=== PATIENT | male | born 1945 | race Caucasian/White ===

== ENCOUNTER 2018-03-07 20:24 | Inpatient (IN) ==
[2018-03-07] MEDS ORDERED: Potassium Chloride Elixir 20 MEQ/15 ML UDC PO ONE (23:26)
[2018-03-07] MEDS ORDERED: GI Cocktail 40 ML EACH PO ONE (23:26)
[2018-03-07] MEDS ORDERED: Ringers Solution, Lactated 1,000 ML IVC SCH (23:30)
--- NOTE | 2018-03-07 23:49 | Internal Med History&Physical ---
Date of Encounter: 03/07/18 Time of Encounter: 23:38 Internal Medicine - H&P: HPI Chief complaint: Fatigue Admitted From: Hospital to Hospital Transfer Plans for Post Hospital Care: Home History of present illness: Mr. 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 He completed a cycle 1 week ago at which time he was seen in clinic by Dr Isamar Wick. He presents now on transfer from [facility] where he reported complaints of generalized malaise, debilitating fatigue and difficulty swallowing after receiving radiation and chemotherapy. He has also been feeling nauseated but does not vomit. He denies having diarrhea at tis time stating that it last occurred "half a month ago". He denies having fever or chills. He denies chest pain, diaphoresis, abdominal pain. He has had poor oral intake due to difficulty swallowing with notable discomfort in his chest and feeling of "burning". Says due to his weakness he has been unable to ambulate adequately and nearly falls when feeling lightheaded. He denies headaches, numbness or focal weaknesses. There has been no loss of bowel or bladder continence. He denies being in pain at this time. He denies cough and expectoration. On my assessment here he is notably fatigued but not in acute distress. He was in a notably dehydrated state on clinical presentation with outside labs remarkable for K 3.1, Hgb 10.2, Cr 1.15, lactic acid 2.8, Cl 89 and ANC 0.6. His temperature upon arrival to the ER was 96.0-98.8 Fahrenheit, heart rate of 72-101, BP of 130/72 and oxygen saturation of 96% on room air. Of note, the patient expressed his wish to not have CPR done if his heart were to stop and undergo mechanical ventilation for respiratory needs, expressing his preference to have comfort care alone if it got to that stage. Past Med Surg Social Fam HX - Past Medical History Medical history: cancer, COPD Additional medical history: htn. copd. lung nodule Psychiatric history: anxiety, depression, PTSD - Past Surgical History Surgical History: other Additional surgical history: right CTR. left arm ORIF - Social History Smoking Status: Former smoker Packs per day: 2 Smokeless Tobacco Status: Yes ([place] snuff) Alcohol use: none Drug use: none Internal Medicine - H&P: Meds Albuterol Sulfate [Proventil Hfa] 2 puff IH Q6H PRN 12/01/17 [History] Atorvastatin [Lipitor] 40 mg PO HS 12/01/17 [History] Budesonide/Formoterol 160/4.5 [Symbicort 160/4.5] 2 puff IH BIDR 12/01/17 [ History] Sertraline [Zoloft] 100 mg PO DAILY 12/01/17 [History] Tiotropium [Spiriva] 2 puff IH 0700 12/01/17 [History] Folic Acid 1 mg PO DAILY #30 tablet 12/24/17 [Rx] Omeprazole [PriLOSEC] 20 mg PO DAILY #30 cap 01/14/18 [Rx] Dronabinol [Marinol] 5 mg PO BID 30 Days #60 capsule 01/18/18 [Rx] Mirtazapine [Remeron] 30 mg PO DAILY #30 tablet 01/25/18 [Rx] Sucralfate [Carafate] 1 gm PO QIDAC #1 bottle 02/09/18 [Rx] Metoclopramide [Reglan] 10 mg PO QIDAC #240 mls 02/17/18 [Rx] Ondansetron [Zofran ODT] 8 mg SL Q8H PRN #30 tab 02/17/18 [Rx] Magic Mouthwash [Magic Mouthwash BLM] 10 ml PO QID PRN #240 ml 02/24/18 [Rx] MORPHINE SUL Oral CONC [Roxanol Oral Conc] 10 mg PO Q3H PRN 7 Days #30 ml [Rx] 3 Allergy/AdvReac Type Severity Reaction Status Date / Time aspirin [ASA] Allergy Swelling Verified 02/24/18 15:13 of Lip/Tongue/Throat codeine Allergy Swelling Verified 02/24/18 15:13 of Lip/Tongue/Throat Penicillins [PCN] Allergy Hives Verified 02/24/18 15:13 All Systems PM: A 10-system review of systems was performed and is negative for pertinent findings except as documented above in the HPI. - Constitutional Vitals: Temp Pulse Resp BP Pulse Ox 97.6 F 109 16 106/64 97 03/07/18 23:07 03/07/18 23:07 03/07/18 23:07 03/07/18 23:07 03/07/18 23:07 Exam: Vitals: Reviewed and seen to be within normal limits General: Emaciated-appearing elderly male lying in bed in no acute distress speaking in full sentences. Skin: Decreased skin turgor with some ecchymotic lesions on forearms. Desquamated skin with scaling and erythema on the mid back region. HEENT: Dry mucous membranes. Mild conjunctivae pallor. No oral stomatitis or mucositis. Neck: Supple with full range of motion. Chest: Diminished thoracic expansion with decreased breath sounds in both lung garcia but no wheezes, rales or rhonchi.. Heart: Normal S1 & S2; rhythmic. No rubs or murmurs. Abdomen: Non-distended, soft and non-tender to palpation. Extremities: Positive clubbing, no cyanosis or edema. No calf tenderness. Normal distal pulses. Neurological: Awake, alert and oriented to person, place and time. No focal deficits. Psych: Appropriate affect - Assessment and plan (1) Dehydration due to radiation Current Visit: Yes Status: Acute Assessment and plan: The patient appears clinically dry after undergoing multiple radiation sessions as well as chemotherapy with very poor oral intake. -Will resuscitate with 2L of LR at 125ml/hr after which the rate can be decreased or he can be maintained on oral intake alone. (2) Nausea Current Visit: Yes Status: Acute Assessment and plan: Likely chemotherapy associated. -Will place on ondansetron 8mg prn. (3) Radiation-induced dermatitis Current Visit: Yes Status: Acute Assessment and plan: Grade 1. -Topical ammonium lactate moisturizer ordered BID. (4) Neutropenia Current Visit: Yes Status: Acute Assessment and plan: The patient is afebrile and without clinical signs of infection. -Will place on neutropenic precautions. -Heme/Onc consult placed to advise on if there is a need for G-CSF. -Follow up repeat CBC. -Monitor for fever and developing signs of infection. Qualifiers: Neutropenia type: secondary to cancer chemotherapy Qualified Code(s): D70.1 - Agranulocytosis secondary to cancer chemotherapy; T45.1X5A - Adverse effect of antineoplastic and immunosuppressive drugs, initial encounter (5) COPD (chronic obstructive pulmonary disease) Current Visit: Yes Status: Chronic Assessment and plan: No signs of acute exacerbation at this time. -Continue LABA/ICS BID and BETINA prn. -Supplemental oxygen as needed. Qualifiers: COPD type: emphysema Emphysema type: panlobular Qualified Code(s): J43.1 - Panlobular emphysema (6) Hypokalemia Current Visit: Yes Status: Acute Assessment and plan: Related to poor oral intake and dehydration. -KCL supplementation ordered and will re-check BMP. (7) Frailty Current Visit: Yes Status: Chronic Assessment and plan: Related to severe copd and malignancy undergoing aggressive therapy. -Continue dronabinol for appetite stimulation. -Palliative care consult request to assist with comfort and goals. -Morphine prn for pain. (8) Lung cancer Current Visit: Yes Status: Chronic Assessment and plan: Undergoing chemo and radiation therapy. -Care per oncology. Qualifiers: Laterality: left Lung location: upper lobe of lung Qualified Code(s): C34.12 - Malignant neoplasm of upper lobe, left bronchus or lung (9) DVT prophylaxis Current Visit: Yes Status: Acute Assessment and plan: high risk given malignancy. -SubQ heparin ordered. - Time Spent With Patient Total time spent is greater than 50% in coordination of care (as documented) at patient's floor/unit and/or counseling patient: Greater than 35 minutes
[2018-03-08] MEDS: Ringers Solution, Lactated 1,000 ML IVC SCH ×2 (01:01→11:05)
[2018-03-08] MEDS: Ammonium Lactate 30 APPL/225 GM BOTTLE TP SCH ×2 (02:20→09:33)
[2018-03-08] MEDS: *HR* Heparin 5,000 UNIT/ML VIAL SQ SCH ×3 (06:18→21:07)
[2018-03-08 06:48] LABS: Eosinophils % 3.8 %; Hematocrit 22.8 % (37.5-50.1); Hemoglobin 7.9 g/dL (12.9-16.9); Immature Granulocytes % 9.4 % (0-4); Lymphocytes # 0.1 K/mcL (0.6-4.6); Lymphocytes % 15.1 %; Mean Corpuscular HGB Conc 34.6 g/dL (31.6-35.5); Mean Corpuscular Hemoglobin 29.3 pg (28.0-33.3); Mean Corpuscular Volume 84.4 fL (83.0-100.0); Mean Platelet Volume 8.7 fL (9.4-12.4); Monocytes # 0.1 K/mcL (0.0-1.3); Monocytes % 15.1 %; Neutrophils # 0.3 K/mcL (1.6-8.9); Platelet Count 228 K/mcL (140-400); Red Cell Distribution Width 15.5 % (11.5-14.5); Segmented Neutrophils % 56.6 %
[2018-03-08 07:03] LABS: Alanine Aminotransferase 16 Units/L (7-52); Albumin/Globulin Ratio 1.1 (1.1-2.2); Alkaline Phosphatase 58 Units/L (34-104); Aspartate Amino Transferase 31 Units/L (13-39); BUN/Creatinine Ratio 26 (6-26); Bilirubin,Direct 0.2 mg/dL (0.0-0.2); Bilirubin,Indirect 0.4 mg/dL (0.0-1.2); Bilirubin,Total 0.6 mg/dL (0.3-1.0); Blood Urea Nitrogen 18 mg/dL (8-23); Calcium 8.1 mg/dL (8.6-10.3); Carbon Dioxide 29 mEq/L (23-29); Chloride 93 mEq/L (98-107); Globulin 2.8 g/dL (2.4-3.5); Glucose 98 mg/dL (70-105); Osmolality,Calculated 274 (280-300); Phosphorous 2.1 mg/dL (2.7-4.5); Potassium 3.3 mEq/L (3.5-5.1); Sodium 131 mEq/L (136-145); Total Protein 5.8 g/dL (6.4-8.9); eGFR For Non-African Americans > 60 (> 60)
[2018-03-08 07:59] LABS: Anisocytosis 1+ (Not Present); Macrocytosis Present (Not Present); Microcytosis Present (Not Present); Platelet Estimate Normal (Normal)
[2018-03-08 08:00] LABS: Spherocytes 1+ (Not Present)
--- NOTE | 2018-03-08 08:07 | Internal Med Progress Note ---
Hospitalist Progress Note - Encounter Date of Encounter: 03/08/18 Time of Encounter: 08:00 - Subjective Interval History: Mr. 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 He completed a cycle 1 week ago at which time he was seen in clinic by Dr Isamar Wick. He presents now on transfer from [facility] where he reported complaints of generalized malaise, debilitating fatigue and difficulty swallowing after receiving radiation and chemotherapy. Patient was admitted for dehydration, dysphagia unable to swallow, significant weight loss, failure to thriv. on 03/07. He c/o burning epigastric pain, unalbe to swallow food, nausea for 2 months, lost 30 Lbs Today's lab showed leukopenia WBC 0.5 from chemo 1. stage 3 lung cancer, ongoing chemo and radiation 2.chemo-induced leukopenia 3. dysphasia, on liquids 4. dehydration 5. goal of care - Exam Vitals: Temp Pulse Resp BP Pulse Ox 98.5 F 102 16 101/60 98 03/08/18 04:17 03/08/18 04:17 03/08/18 04:17 03/08/18 04:17 03/08/18 04:17 Exam: CONSTITUTIONAL: patient appears as an age appropriate male in no acute distress. EYES Clear sclerae, bilateral pupils are equal, reactive to light. EMOI. RESPIRATORY: No accessory muscle use, bilateral clear to auscultation, no wheezing, no crackles/rales. CARDIOVASCULAR: Regular heart rate, normal S1 and S2, no murmurs GASTROINTESTINAL: bowel sounds present, soft, no tenderness. MUSCULOSKELETAL: Joints in normal range of motion, no clubbing, no edema, no cyanosis. Bilateral peripheral pulses 2+. NEUROLOGIC: CN II to XII are grossly intact, no focal neurological deficit. - Assessment and Plan (1) Dehydration due to radiation Current Visit: Yes Status: Acute Assessment and Plan: HYponatremia, due to nausea and dysphasia, continue IVF (2) Nausea Current Visit: Yes Status: Acute Assessment and Plan: and dysphasia, is likley related to radiation, will consult oncology if patient need PEG, continue liquids diet (3) Frailty Current Visit: Yes Status: Chronic Assessment and Plan: due to chemo and radiation, consult PT AND OT (4) Hypokalemia Current Visit: Yes Status: Acute Assessment and Plan: will repalce with IV (5) COPD (chronic obstructive pulmonary disease) Current Visit: Yes Status: Chronic Assessment and Plan: on 2 L NC at home, stable no signs for exacerbation (6) DVT prophylaxis Current Visit: Yes Status: Acute Assessment and Plan: heparin SC (7) Neutropenia Current Visit: Yes Status: Acute Assessment and Plan: from chemo and radiation, reverse isolation. The patient is afebrile and without clinical signs of infection. - on neutropenic precautions. -Heme/Onc consult placed to advise on if there is a need for G-CSF. -Follow up repeat CBC. -Monitor for fever and developing signs of infection. (8) Lung cancer Current Visit: Yes Status: Chronic Assessment and Plan: Undergoing chemo and radiation therapy. -consult oncology - Time Spent with Patient Total time spent is greater than 50% in coordination of care (as documented) at patient's floor/unit and/or counseling patient: Greater than 35 minutes Plan of Care Discussed with: patient Internal Medicine: Result - Labs CBC & Chem 7: 03/08/18 05:47 03/08/18 05:47 Labs: Short CBC 03/08/18 Range/Units 05:47 WBC 0.5 L* D (4.3-11.1) K/mcL Hgb 7.9 L D (12.9-16.9) g/dL Hct 22.8 L (37.5-50.1) % Plt Count 228 (140-400) K/mcL Neutrophils # 0.3 L (1.6-8.9) K/mcL BMP 03/08/18 05:47 Sodium 131 L Potassium 3.3 L Chloride 93 L Carbon Dioxide 29 BUN 18 Creatinine 0.69 L Glucose 98 Calcium 8.1 L Liver Function 03/08/18 Range/Units 05:47 Total Bilirubin 0.6 (0.3-1.0) mg/dL Direct Bilirubin 0.2 (0.0-0.2) mg/dL AST 31 (13-39) Units/L ALT 16 (7-52) Units/L Alkaline Phosphatase 58 (34-104) Units/L Albumin 3.0 L (3.5-5.7) g/dL Consult Discharge Plan - Plan [facility]errals: [facility] [Primary Care Provider] - (5) COPD (chronic obstructive pulmonary disease) Qualifiers: COPD type: emphysema Emphysema type: panlobular Qualified Code(s): J43.1 - Panlobular emphysema (7) Neutropenia Qualifiers: Neutropenia type: secondary to cancer chemotherapy Qualified Code(s): D70.1 - Agranulocytosis secondary to cancer chemotherapy; T45.1X5A - Adverse effect of antineoplastic and immunosuppressive drugs, initial encounter (8) Lung cancer Qualifiers: Laterality: left Lung location: upper lobe of lung Qualified Code(s): C34.12 - Malignant neoplasm of upper lobe, left bronchus or lung
[2018-03-08] MEDS ORDERED: Potassium Chloride 40 MEQ, Lidocaine 1% 2 ML in D5% in Water 500 ML IVPB ONE (08:17)
[2018-03-08] MEDS: Metoclopramide 10 MG/10 ML UD.LIQ PO SCH ×4 (08:24→21:07)
[2018-03-08] MEDS: Mirtazapine 15 MG TABLET PO SCH (08:24)
[2018-03-08] MEDS: Folic Acid 1 MG TABLET PO SCH (08:24)
--- NOTE | 2018-03-08 10:51 | Oncology Inp Consult Note ---
<James Schwartz - Last Filed: 03/08/18 17:08> Date of Encounter: 03/08/18 Time of Encounter: 10:49 Assessment and Plan (1) Dysphagia Status: Acute Assessment and plan: patient has had dysphagia since his radiation treatment for lung cancer during his last visit with Dr. Wick his symptoms were well controlled and he was able to have a proper diet/nutrition however this has deteriorated in the last week likley esophagitis/mucositis will give viscous lidocaine, carafate and magic mouthwash. advance diet as tolerated. Qualifiers: Dysphagia type: unspecified Qualified Code(s): R13.10 - Dysphagia, unspecified (2) Neutropenia Status: Acute Assessment and plan: Patient has Stage IIIa adenocarcinoma of the lingula he is on carboplatin with susan with last treatment on 03/02/18 since then he reports worsening dysphagia, weakness, fatigue, poor oral intake he presents with neutropenia with ANC of 300. Patient does not have fever. Denies cough, sputum production, diarrhea. this is the lowest ANC patient has had. no signs of thrush. Qualifiers: Neutropenia type: secondary to cancer chemotherapy Qualified Code(s): D70.1 - Agranulocytosis secondary to cancer chemotherapy; T45.1X5A - Adverse effect of antineoplastic and immunosuppressive drugs, initial encounter (3) Adenocarcinoma of left lung, stage 3 Status: Chronic - Data of Consult Patient: known to practice within the last 3 years Consult date: 03/08/18 Requesting Physician: Radha Santillan MD Primary Care Provider[facility] - Consult Narrative Reason for consult: neutropenia, dysphagia History of present illness: Mr. Dumont is a 72 year old male with history of stage III adenocarcinoma the lingula currently on chemotherapy presented with chief complaint of difficulty swallowing, painful swallowing and poor diet. Patient's reports that his last chemotherapy was 03/02/18 and since then he has had severe chest pain with oral intake including solid and liquid foods. Because of this he has undergone been unable to eat. He reports he has undergone radiation and since then has developed his dysphasia. He also reports having nausea, but does not vomit. In the emergency room he was found to have a ANC of 300. He denies fevers, chills, rash, cough, sputum production, diarrhea, abdominal pain, open wounds. He has felt very weak due to poor diet and fluid intake. Past Med Surg Social Fam HX - Past Medical History Medical history: cancer, COPD Additional medical history: htn. copd. lung nodule Psychiatric history: anxiety, depression, PTSD - Past Surgical History Surgical History: other Additional surgical history: right CTR. left arm ORIF - Social History Smoking Status: Former smoker Packs per day: 2 Smokeless Tobacco Status: Yes ([facility]uff) Alcohol use: none Drug use: none Medications and Allergies Albuterol Sulfate [Proventil Hfa] 2 puff IH Q6H PRN 12/01/17 [History] Atorvastatin [Lipitor] 20 mg PO HS 12/01/17 [History] Budesonide/Formoterol 160/4.5 [Symbicort 160/4.5] 2 puff IH BIDR 12/01/17 [ History] Sertraline [Zoloft] 100 mg PO DAILY 12/01/17 [History] Tiotropium [Spiriva] 2 puff IH 0700 12/01/17 [History] Omeprazole [PriLOSEC] 20 mg PO DAILY #30 cap 01/14/18 [Rx] Dronabinol [Marinol] 5 mg PO BID 30 Days #60 capsule 01/18/18 [Rx] Mirtazapine [Remeron] 30 mg PO DAILY #30 tablet 01/25/18 [Rx] Sucralfate [Carafate] 1 gm PO QIDAC #1 bottle 02/09/18 [Rx] Ondansetron [Zofran ODT] 8 mg SL Q8H PRN #30 tab 02/17/18 [Rx] MORPHINE SUL Oral CONC [Roxanol Oral Conc] 10 mg PO Q3H PRN 7 Days #30 ml [Rx] Albuterol Neb [Proventil Neb] 2.5 mg IH BID PRN 03/08/18 [History] Benzonatate [Tessalon] 100 mg PO TID 03/08/18 [History] Calcium Carbonate 650 mg PO DAILY 03/08/18 [History] Cholecalciferol (D-3) [Vitamin D] 1,000 unit PO DAILY 03/08/18 [History] Clopidogrel [Plavix] 75 mg PO DAILY 03/08/18 [History] LevETIRAcetam [Roweepra] 500 mg PO BID 03/08/18 [History] Lisinopril [Zestril] 20 mg PO DAILY 03/08/18 [History] Loratadine [Allergy Relief] 10 mg PO DAILY 03/08/18 [History] Metoclopramide [Reglan] 10 mg PO Q6HR 03/08/18 [History] Prazosin HCl [Minipress] 5 mg PO HS 03/08/18 [History] Promethazine [Phenergan] 25 mg PO Q6HR PRN 03/08/18 [History] Sertraline [Zoloft] 100 mg PO DAILY 03/08/18 [History] hydroCHLOROthiazide [Hydrochlorothiazide] 25 mg PO DAILY 03/08/18 [History] 3 Allergy/AdvReac Type Severity Reaction Status Date / Time aspirin [ASA] Allergy Swelling Verified 02/24/18 15:13 of Lip/Tongue/Throat codeine Allergy Swelling Verified 02/24/18 15:13 of Lip/Tongue/Throat Penicillins [PCN] Allergy Hives Verified 02/24/18 15:13 Review of systems: Constitutional: Denies fever, chills. Reports generalized weakness, fatigue HEENT: Denies headache, vision changes, neck pain, sore throat, rhinorrhea Heart: Denies chest pain palpitations Lungs: Denies shortness of breath cough Abdomen: Denies abdominal pain and diarrhea. reports nausea, loose stools. Reports dysphasia Back: Denies back pain Kidney: Denies dysuria, hematuria Skin: Denies rash, lesions Extremities: Denies swelling, pain Neuro: Denies numbness and tingling Oncology - Exam - Constitutional Vitals: Temp Pulse Resp BP Pulse Ox 98.3 F 105 14 113/67 96 03/08/18 10:16 03/08/18 10:16 03/08/18 10:16 03/08/18 10:16 03/08/18 10:16 - Additional findings Additional findings: General: Pleasant male, cachectic, weak HEENT: Head atraumatic, normocephalic, EOMI, PERRL, neck nontender to palpation , absent lymphadenopathy, Moist Mucous Membranes, Heart: Regular rate and rhythm with no murmur Lungs: Clear to auscultation bilaterally Abdomen: Soft nontender, nondistended positive bowel sounds Skin: warm and dry, absent rash Extremities: Absent pedal edema, Neuro: Alert oriented 3 Vascular: Pedal and radial pulses 2 out of 4 Oncology - Results Labs: 3 03/08/18 03/08/18 05:47 05:47 WBC 0.5 L* D RBC 2.70 L Hgb 7.9 L D Hct 22.8 L MCV 84.4 MCH 29.3 MCHC 34.6 RDW 15.5 H Plt Count 228 MPV 8.7 L Immature Gran % 9.4 H Seg Neutrophils % 56.6 Lymphocytes % 15.1 Monocytes % 15.1 Eosinophils % 3.8 Basophils % 0.0 Neutrophils # 0.3 L Lymphocytes # 0.1 L Monocytes # 0.1 Eosinophils # 0.0 Basophils # 0.0 Platelet Estimate Normal Anisocytosis 1+ A Microcytosis Present A Macrocytosis Present A Spherocytes 1+ A Sodium 131 L Potassium 3.3 L Chloride 93 L Carbon Dioxide 29 BUN 18 Creatinine 0.69 L Est GFR ( Amer) > 60 Est GFR (Non-Af Amer) > 60 BUN/Creatinine Ratio 26 Glucose 98 Calculated Osmolality 274 L Calcium 8.1 L Phosphorus 2.1 L Magnesium 2.0 Total Bilirubin 0.6 Direct Bilirubin 0.2 Indirect Bilirubin 0.4 AST 31 ALT 16 Alkaline Phosphatase 58 Serum Total Protein 5.8 L Albumin 3.0 L Globulin 2.8 Albumin/Globulin Ratio 1.1 Consult Discharge Plan - Plan [facility]errals: [facility] [Primary Care Provider] - <Damien Wick S - Last Filed: 03/08/18 21:36> Date of Encounter: 03/08/18 - Data of Consult Requesting Physician: Radha Santillan MD Primary Care Provider: PCP [facility] - Consult Narrative History of present illness: Mr. Dumont is a 72 year old male Oncology - Exam - Constitutional Vitals: Temp Pulse Resp BP Pulse Ox 99.6 F 104 14 147/72 96 03/08/18 19:04 03/08/18 19:04 03/08/18 20:06 03/08/18 19:04 03/08/18 20:06 Oncology - Results Labs: 3 03/08/18 03/08/18 05:47 05:47 WBC 0.5 L* D RBC 2.70 L Hgb 7.9 L D Hct 22.8 L MCV 84.4 MCH 29.3 MCHC 34.6 RDW 15.5 H Plt Count 228 MPV 8.7 L Immature Gran % 9.4 H Seg Neutrophils % 56.6 Lymphocytes % 15.1 Monocytes % 15.1 Eosinophils % 3.8 Basophils % 0.0 Neutrophils # 0.3 L Lymphocytes # 0.1 L Monocytes # 0.1 Eosinophils # 0.0 Basophils # 0.0 Platelet Estimate Normal Anisocytosis 1+ A Microcytosis Present A Macrocytosis Present A Spherocytes 1+ A Sodium 131 L Potassium 3.3 L Chloride 93 L Carbon Dioxide 29 BUN 18 Creatinine 0.69 L Est GFR ( Amer) > 60 Est GFR (Non-Af Amer) > 60 BUN/Creatinine Ratio 26 Glucose 98 Calculated Osmolality 274 L Calcium 8.1 L Phosphorus 2.1 L Magnesium 2.0 Total Bilirubin 0.6 Direct Bilirubin 0.2 Indirect Bilirubin 0.4 AST 31 ALT 16 Alkaline Phosphatase 58 Serum Total Protein 5.8 L Albumin 3.0 L Globulin 2.8 Albumin/Globulin Ratio 1.1 - Attending Attestation I have seen and examined Mr. Dumont and agree with the resident's assessment and plan. Mr. Dumont is a 72-year-old gentleman who is under my care for stage IIIa poorly differentiated adenocarcinoma of the lingula. He recently completed radiation therapy this past Thursday. He received his last dose of chemotherapy just this past week. He is been admitted with esophagitis. This patient should be managed with supportive measures including IV fluids, Carafate suspension before meals and at bedtime as well as Magic mouthwash before meals and bedtime. This will resolve with time. I would also recommend nutrition consultation. There is no need for PEG tube placement as this will be short-lived. We will continue to follow.
[2018-03-08] MEDS: Tiotropium 18 MCG inhalation IH SCH ×2 (10:55→11:00)
[2018-03-08] MEDS: Budesonide/Formoterol 160/4.5 MDI IH SCH ×2 (11:00→20:05)
[2018-03-08] MEDS: Magic Mouthwash 10 ML UD Cup PO PRN ×2 (11:35→16:07)
[2018-03-08] MEDS: MORPHINE SUL Oral CONC 10 MG/0.5 ML ORAL.SYG PO PRN (13:56)
--- NOTE | 2018-03-08 15:27 | Palliative - Consult Note ---
Date of Encounter: 03/08/18 Time of Encounter: 16:15 - Assessment and Plan (1) Dehydration due to radiation Current Visit: Yes Status: Acute Assessment and plan: Continues with Iv fluids per hospitalists order. (2) Dysphagia Current Visit: Yes Status: Acute Assessment and plan: Remains on full liquid diet with ensure. He is still struggling somewhat with this. Continue Magic Mouthwash and Carafate as well. Qualifiers: Dysphagia type: unspecified Qualified Code(s): R13.10 - Dysphagia, unspecified (3) Nausea Current Visit: Yes Status: Acute Assessment and plan: Continue Ondansetron PRN. Remains on Reglan/Marinol as well. Has not required Ondansetron since admission. Monitor (4) Adenocarcinoma of left lung, stage 3 Current Visit: Yes Status: Chronic Assessment and plan: Reviewed previous oncology notes - treatment intent is curative for this patient. Oncology has been consulted this admission. Will review any recommendations. (5) COPD (chronic obstructive pulmonary disease) Current Visit: Yes Status: Chronic Qualifiers: COPD type: emphysema Emphysema type: panlobular Qualified Code(s): J43.1 - Panlobular emphysema (6) Advance care planning Current Visit: Yes Status: Acute Assessment and plan: Went to meet with pt in afternoon to complete advanced directives and discuss state DNR form, however, pt was vomiting. Nurse has been notified to give medication. Will meet again in am. Palliative-CN HPI - Data of Consult Consult date: 03/08/18 Requesting Physician: Radha Santillan MD [facility] - Consult Narrative Palliative Care/Comfort Measures: Hospice care History of present illness: Mr. Dumont is a 72 year old male with a history of stage IIIa adenocarcinoma of the lung, who presented with increasing fatigue, weakness, and poor appetite. Neutropenic with WBC 0.5. Hgb 7.9. 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 He is patient of Dr. Wick/Dr. Cabral and has been receiving chemo/radiation. Has struggled maintaining oral intake with his dysphagia. Appears oncology has been working with him on this symptom, and had mentioned he may need PEG tube for nutrition. He has 5 children, and lives with son Anson. No advance directives are in place. He wears oxygen at home. Upon my visit, he is resting comfortably in the bed, and no visitors are present. He still does complain of some midsternal chest discomfort, and states swallowing still difficult for him. Doesn't like to take pain medications and states "don't want to feel doped up'. Weakness has improved some with fluids, and he states he is up and around room. CC: Radha Santillan MD Past Med Surg Social Fam HX - Past Medical History Medical history: cancer, COPD Additional medical history: htn. copd. lung nodule Psychiatric history: anxiety, depression, PTSD - Past Surgical History Surgical History: other Additional surgical history: right CTR. left arm ORIF - Social History Smoking Status: Former smoker Packs per day: 2 Smokeless Tobacco Status: Yes (CollabRx snuff) Alcohol use: none Drug use: none Medications and Allergies Albuterol Sulfate [Proventil Hfa] 2 puff IH Q6H PRN 12/01/17 [History] Atorvastatin [Lipitor] 20 mg PO HS 12/01/17 [History] Budesonide/Formoterol 160/4.5 [Symbicort 160/4.5] 2 puff IH BIDR 12/01/17 [ History] Sertraline [Zoloft] 100 mg PO DAILY 12/01/17 [History] Tiotropium [Spiriva] 2 puff IH 0700 12/01/17 [History] Omeprazole [PriLOSEC] 20 mg PO DAILY #30 cap 01/14/18 [Rx] Dronabinol [Marinol] 5 mg PO BID 30 Days #60 capsule 01/18/18 [Rx] Mirtazapine [Remeron] 30 mg PO DAILY #30 tablet 01/25/18 [Rx] Sucralfate [Carafate] 1 gm PO QIDAC #1 bottle 02/09/18 [Rx] Ondansetron [Zofran ODT] 8 mg SL Q8H PRN #30 tab 02/17/18 [Rx] MORPHINE SUL Oral CONC [Roxanol Oral Conc] 10 mg PO Q3H PRN 7 Days #30 ml [Rx] Albuterol Neb [Proventil Neb] 2.5 mg IH BID PRN 03/08/18 [History] Benzonatate [Tessalon] 100 mg PO TID 03/08/18 [History] Calcium Carbonate 650 mg PO DAILY 03/08/18 [History] Cholecalciferol (D-3) [Vitamin D] 1,000 unit PO DAILY 03/08/18 [History] Clopidogrel [Plavix] 75 mg PO DAILY 03/08/18 [History] LevETIRAcetam [Roweepra] 500 mg PO BID 03/08/18 [History] Lisinopril [Zestril] 20 mg PO DAILY 03/08/18 [History] Loratadine [Allergy Relief] 10 mg PO DAILY 03/08/18 [History] Metoclopramide [Reglan] 10 mg PO Q6HR 03/08/18 [History] Prazosin HCl [Minipress] 5 mg PO HS 03/08/18 [History] Promethazine [Phenergan] 25 mg PO Q6HR PRN 03/08/18 [History] Sertraline [Zoloft] 100 mg PO DAILY 03/08/18 [History] hydroCHLOROthiazide [Hydrochlorothiazide] 25 mg PO DAILY 03/08/18 [History] 3 Allergy/AdvReac Type Severity Reaction Status Date / Time aspirin [ASA] Allergy Swelling Verified 02/24/18 15:13 of Lip/Tongue/Throat codeine Allergy Swelling Verified 02/24/18 15:13 of Lip/Tongue/Throat Penicillins [PCN] Allergy Hives Verified 02/24/18 15:13 All systems: reviewed and no additional remarkable complaints except as stated ( dysphgia and decreased appetite, pain in esophagus region, weakness, fatigue) Palliative Care-Exam - Constitutional Vitals: Temp Pulse Resp BP Pulse Ox 98.1 F 59 16 138/74 94 03/08/18 15:09 03/08/18 15:03/08/18 15:03/08/18 15:03/08/18 15:09 General appearance: Present: no acute distress - Head Head Exam: Present: normal inspection, normocephalic - Respiratory Respiratory exam: Present: decreased breath sounds, CTAB - Cardiovascular Cardiovascular exam: Present: +S1, +S2 - GI/Abdominal Exam GI/Abdominal exam: Present: diminished bowel sounds, soft - Extremities Exam Extremities exam: Present: normal capillary refill, normal inspection - Neurological Exam Neurological exam: Present: alert, oriented X3, strengths equal and symetr throughout - Skin Skin exam: Present: dry, warm Internal Medicine - CN: Reslt - Labs CBC & Chem 7: 03/08/18 05:47 03/08/18 05:47 Labs: Short CBC 03/08/18 Range/Units 05:47 WBC 0.5 L* D (4.3-11.1) K/mcL Hgb 7.9 L D (12.9-16.9) g/dL Hct 22.8 L (37.5-50.1) % Plt Count 228 (140-400) K/mcL Neutrophils # 0.3 L (1.6-8.9) K/mcL BMP 03/08/18 05:47 Sodium 131 L Potassium 3.3 L Chloride 93 L Carbon Dioxide 29 BUN 18 Creatinine 0.69 L Glucose 98 Calcium 8.1 L Liver Function 03/08/18 Range/Units 05:47 Total Bilirubin 0.6 (0.3-1.0) mg/dL Direct Bilirubin 0.2 (0.0-0.2) mg/dL AST 31 (13-39) Units/L ALT 16 (7-52) Units/L Alkaline Phosphatase 58 (34-104) Units/L Albumin 3.0 L (3.5-5.7) g/dL Consult Discharge Plan - Plan [facility]errals: [facility] [Primary Care Provider] - Palliative Quality Palliative Quality: Screen for Code Status: Yes, Screen for Goals of Care: Yes, Screen for Pain: Yes, If Pain Regimen Started, Initiate Bowel Regimen: Yes, Screen for Nausea/Vomitting: Yes Code Status: 03/07/18 23:59 Resuscitation Status: Active [RES] Routine Comment: Resuscitation Status: DNR-Comfort Care
[2018-03-08] MEDS: D5% in 0.45% NACL w KCl 20 MEQ/1,000 ML MLS IVC SCH (16:19)
[2018-03-08] MEDS: Lidocaine Viscous Oral Soln 15 ML SOLUTION MM SCH (17:49)
[2018-03-08] MEDS: levETIRAcetam 250 MG TABLET PO SCH (21:07)
[2018-03-09] MEDS: D5% in 0.45% NACL w KCl 20 MEQ/1,000 ML MLS IVC SCH ×2 (00:15→08:34)
[2018-03-09] MEDS: MORPHINE SUL Oral CONC 10 MG/0.5 ML ORAL.SYG PO PRN ×4 (00:16→19:53)
[2018-03-09] MEDS: Ammonium Lactate 30 APPL/225 GM BOTTLE TP SCH ×3 (00:19→19:51)
[2018-03-09] MEDS: *HR* Heparin 5,000 UNIT/ML VIAL SQ SCH ×3 (05:25→23:10)
[2018-03-09 06:55] LABS: Basophils % 1.8 %; Hematocrit 21.2 % (37.5-50.1); Hemoglobin 7.4 g/dL (12.9-16.9); Immature Granulocytes % 1.8 % (0-4); Lymphocytes # 0.1 K/mcL (0.6-4.6); Lymphocytes % 10.5 %; Mean Corpuscular HGB Conc 34.9 g/dL (31.6-35.5); Mean Corpuscular Hemoglobin 28.6 pg (28.0-33.3); Mean Corpuscular Volume 81.9 fL (83.0-100.0); Mean Platelet Volume 8.9 fL (9.4-12.4); Monocytes # 0.1 K/mcL (0.0-1.3); Monocytes % 8.8 %; Platelet Count 167 K/mcL (140-400); Red Blood Count 2.59 M/mcL (4.19-5.50); Red Cell Distribution Width 15.4 % (11.5-14.5); Segmented Neutrophils % 77.1 %
[2018-03-09 06:58] LABS: Neutrophils # 0.5 K/mcL (1.6-8.9)
[2018-03-09 07:20] LABS: BUN/Creatinine Ratio 10 (6-26); Blood Urea Nitrogen 6 mg/dL (8-23); Carbon Dioxide 27 mEq/L (23-29); Chloride 94 mEq/L (98-107); Glucose 146 mg/dL (70-105); Osmolality,Calculated 268 (280-300); Potassium 2.9 mEq/L (3.5-5.1); Sodium 129 mEq/L (136-145); eGFR For Non-African Americans > 60 (> 60)
[2018-03-09] MEDS: Tiotropium 18 MCG inhalation IH SCH (08:03)
[2018-03-09] MEDS: Budesonide/Formoterol 160/4.5 MDI IH SCH ×2 (08:03→22:31)
[2018-03-09 08:07] LABS: Platelet Estimate Normal (Normal)
--- NOTE | 2018-03-09 08:25 | Oncology Inp Progress Note ---
<James Schwartz - Last Filed: 03/09/18 08:57> Date of Encounter: 03/09/18 Time of Encounter: 08:59 (1) Dysphagia Current Visit: Yes Status: Acute Assessment and plan: franklin esophagitis/mucositis symptoms improved with viscous lidocaine, carafate will continue this advance diet as tolerated. Qualifiers: Dysphagia type: unspecified Qualified Code(s): R13.10 - Dysphagia, unspecified (2) Neutropenia Current Visit: Yes Status: Acute Assessment and plan: Patient has Stage IIIa adenocarcinoma of the lingula he is on carboplatin with susan with last treatment on 03/02/18 he presents with neutropenia with ANC of 300. Patient does not have fever. Denies cough, sputum production, diarrhea. ANC now 500 no fever, chills no antibiotics or G-CSF indicated at this point. Qualifiers: Neutropenia type: secondary to cancer chemotherapy Qualified Code(s): D70.1 - Agranulocytosis secondary to cancer chemotherapy; T45.1X5A - Adverse effect of antineoplastic and immunosuppressive drugs, initial encounter (3) Adenocarcinoma of left lung, stage 3 Current Visit: Yes Status: Chronic Oncology: Subj Interval history: Patient report he was able to drink fluid last night after using viscous lidocaine. He reports his fatigue has improved. He denies headache, chest pain, sob, abdominal pain. - Constitutional Vitals: Vital Signs Temp Pulse Resp BP Pulse Ox 03/09/18 08:06 16 97 03/09/18 06:53 98.8 F 102 14 134/72 96 03/09/18 03:40 98.7 F 101 15 120/67 94 03/08/18 23:52 99.0 F 109 15 117/71 96 03/08/18 20:06 14 96 03/08/18 19:04 99.6 F 104 15 147/72 96 03/08/18 15:09 98.1 F 59 16 138/74 94 03/08/18 10:16 98.3 F 105 14 113/67 96 Intake and Output 03/08/18 03/09/18 03/09/18 23:59 07:59 15:59 Intake Total 1022 / 1022 1240 / 1240 Output Total 775 / 775 350 / 350 Balance 247 / 247 890 / 890 Intake: IV Fluids 1022 / 1022 1000 / 1000 KCl 20mEq IN D5%-0.45 NACL 20 1000 / 1000 meq In 1,000 ml @ 125 mls/hr IVC .Q8H [facility] Rx#:[id number] Lactated Ringers 1,000 ML @ 125 500 / 500 mls/hr IVC .Q8H [facility] Rx#: [id number] KCl 40 MEQ Xylocaine 2 ML In 522 / 522 Dextrose 5% 500 ML @ 130.5 mls/ hr IVPB ONCE ONE Rx#:[id number] Oral 0 / 0 240 / 240 Output: Urine 775 / 775 350 / 350 Other: Weight 60.8 kg - Additional findings Additional findings: General: Pleasant male, cachectic, weak Heart: Regular rate and rhythm with no murmur Lungs: Clear to auscultation bilaterally Abdomen: Soft nontender, nondistended positive bowel sounds Skin: warm and dry, absent rash Extremities: Absent pedal edema, Neuro: Alert oriented 3 Vascular: Pedal and radial pulses 2 out of 4 Oncology: Obj Data - Labs CBC & Chem 7: 03/09/18 06:27 03/09/18 06:27 Labs: Laboratory Results - last 24 hr 03/09/18 03/09/18 06:27 06:27 WBC 0.6 L* RBC 2.59 L Hgb 7.4 L Hct 21.2 L MCV 81.9 L MCH 28.6 MCHC 34.9 RDW 15.4 H Plt Count 167 MPV 8.9 L Immature Gran % 1.8 Seg Neutrophils % 77.1 Lymphocytes % 10.5 Monocytes % 8.8 Eosinophils % 0.0 Basophils % 1.8 Neutrophils # 0.5 L Lymphocytes # 0.1 L Monocytes # 0.1 Eosinophils # 0.0 Basophils # 0.0 Platelet Estimate Normal Sodium 129 L Potassium 2.9 L Chloride 94 L Carbon Dioxide 27 BUN 6 L Creatinine 0.63 L Est GFR ( Amer) > 60 Est GFR (Non-Af Amer) > 60 BUN/Creatinine Ratio 10 Glucose 146 H Calculated Osmolality 268 L Calcium 8.0 L Consult Discharge Plan - Plan [facility]errals: [facility] [Primary Care Provider] - <Damien Wick - Last Filed: 03/10/18 08:03> Date of Encounter: 03/09/18 - Constitutional Vitals: Vital Signs Temp Pulse Resp BP Pulse Ox 03/10/18 07:25 98.8 F 108 18 138/78 95 03/10/18 04:49 98.6 F 109 17 115/65 95 03/10/18 00:18 99.4 F 120 14 111/65 90 03/09/18 22:31 2 93 03/09/18 19:46 98.0 F 113 14 148/69 90 03/09/18 15:14 98.0 F 107 14 145/75 95 03/09/18 11:16 98.6 F 109 14 131/65 94 03/09/18 08:06 16 97 Intake and Output 03/09/18 03/10/18 03/10/18 16:59 00:59 08:59 Intake Total 669 / 669 722 / 722 150 / 150 Output Total 450 / 450 700 / 700 425 / 425 Balance 219 / 219 22 22 -275 / -275 Intake: IV Fluids 669 / 669 522 / 522 KCl 20mEq IN D5%-0.45 NACL 20 669 / 669 meq In 1,000 ml @ 125 mls/hr IVC .Q8H [facility] Rx#:[id number] KCl 40 MEQ Xylocaine 2 ML In 522 / 522 Dextrose 5% 500 ML @ 130.5 mls/ hr IVPB ONCE ONE Rx#:[id number] Oral 0 / 0 200 / 200 150 / 150 Output: Urine 450 / 450 650 / 650 425 / 425 Emesis 50 / 50 Other: Meal Breakfast fulls Percent of Meal Consumed 0% 0% Weight 60.8 kg Patient Weight 03/11/18 00:59 Weight 60.8 kg Oncology: Obj Data - Labs CBC & Chem 7: 03/10/18 03:48 03/10/18 03:48 Labs: Laboratory Results - last 24 hr 03/09/18 03/10/18 03/10/18 06:27 03:48 03:48 WBC 0.6 L* RBC 2.41 L Hgb 6.9 L Hct 20.1 L MCV 83.4 MCH 28.6 MCHC 34.3 RDW 15.4 H Plt Count 113 L MPV 8.6 L Immature Gran % 1.8 Seg Neutrophils % 77.1 76.0 Band Neutrophils % 2.0 Lymphocytes % 10.5 14.0 Monocytes % 8.8 4.0 Eosinophils % 0.0 2.0 Basophils % 1.8 2.0 Neutrophils # 0.5 L 0.5 L Lymphocytes # 0.1 L 0.1 L Monocytes # 0.1 0.0 Eosinophils # 0.0 0.0 Basophils # 0.0 0.0 Platelet Estimate Normal Slight Decrease L Hypochromasia Present A Sodium 129 L Potassium 4.0 D Chloride 97 L Carbon Dioxide 27 BUN 3 L Creatinine 0.71 Est GFR ( Amer) > 60 Est GFR (Non-Af Amer) > 60 BUN/Creatinine Ratio 4 L Glucose 125 H Calculated Osmolality 266 L Calcium 8.0 L Magnesium 1.5 L Total Bilirubin 0.6 Direct Bilirubin 0.2 Indirect Bilirubin 0.4 AST 30 ALT 16 Alkaline Phosphatase 63 Serum Total Protein 5.8 L Albumin 3.0 L Globulin 2.8 Albumin/Globulin Ratio 1.1 - Attending Attestation I examined this patient and my medical decision-making was reviewed with the resident. I agree with the documented findings, disposition and treatment plan as described except to the extent set forth below. Clinically, he is improving. His esophagitis has improved. He is able to drink most liquids. He is eating more. Would continue supportive measures with Carafate and Magic mouthwash and gentle hydration. Hopefully can discharge in next 1-2 days. Encouraged ambulation
[2018-03-09] MEDS: Lidocaine Viscous Oral Soln 15 ML SOLUTION MM SCH ×3 (08:35→16:17)
[2018-03-09] MEDS: Mirtazapine 15 MG TABLET PO SCH (08:35)
[2018-03-09] MEDS: Metoclopramide 10 MG/10 ML UD.LIQ PO SCH ×4 (08:35→23:10)
[2018-03-09] MEDS: Folic Acid 1 MG TABLET PO SCH (08:36)
[2018-03-09] MEDS: levETIRAcetam 250 MG TABLET PO SCH ×2 (08:36→19:52)
--- NOTE | 2018-03-09 11:14 | Palliative Progress Note ---
Date of Encounter: 03/09/18 Time of Encounter: 11:00 - Assessment and plan (1) Dehydration due to radiation Current Visit: Yes Status: Acute Assessment and plan: K+ down this am - being replaced. He is tolerating diet better. Reviewed and appreciated oncology notes - pt esophagitis should improve, and shouldn't have need for PEG tube. (2) Dysphagia Current Visit: Yes Status: Acute Assessment and plan: REmains on Magic mouthwash, viscous lidocaine, carafate. Oral Morphine is also helping with the discomfort from his esophagitis. Has utilized x3 last 24 hours. Monitor Qualifiers: Dysphagia type: unspecified Qualified Code(s): R13.10 - Dysphagia, unspecified (3) Nausea Current Visit: Yes Status: Acute Assessment and plan: Has not required Ondansetron the last 24 hours. States nausea has improved. MOnitor (4) Adenocarcinoma of left lung, stage 3 Current Visit: Yes Status: Chronic (5) COPD (chronic obstructive pulmonary disease) Current Visit: Yes Status: Chronic Qualifiers: COPD type: emphysema Emphysema type: panlobular Qualified Code(s): J43.1 - Panlobular emphysema (6) Advance care planning Current Visit: Yes Status: Acute Assessment and plan: PT recommended home therapy - but patient refuses and doesn't want home care services. States he will do some walking to get stronger once he is home. He already has oxygen in place. I had a long discussion with pt regarding his code status - he had a previous DNRCC ordered entered on admission prior to our consult. Patient had very limited understanding of what this meant. Explained thoroughly to him the difference between full code, DNRCC-Arrest, and DNR- Comfort Care. Patient's desires are for aggressive medical treatment, however, if his heart should stop, he wants to be kept comfortable at that point, and does not want CPR/ACLS/Defib for cardiac arrest. He is ok with short term intubation if needed for respiratory distress, but does state if his condition does not improve and if he is not able to "get off the machine", he would not want skilled nursing ventilation or tracheostomy. DNR status changed to DNRCC-Arrest in alignment with his wishes. Patient did also complete healthcare power of real estate associate attorney during our visit, and appointed his daughter, (November Kimber - [phone]) primary power of real estate associate attorney and son Anson as alternate. Copies were provided to pt as well as placed in medical record. - Time Spent With Patient Total time spent is greater than 50% in coordination of care (as documented) at patient's floor/unit and/or counseling patient: 25 - 35 minutes - Subjective Interval history: Patient awake and alert, states he is feeling better. No further vomiting since yesterday. States pain has been controlled well with medications. - Constitutional Vitals: Abnormal lab results WBC 0.6 K/mcL (4.3-11.1) L* 03/09/18 06:27 RBC 2.59 M/mcL (4.19-5.50) L 03/09/18 06:27 Hgb 7.4 g/dL (12.9-16.9) L 03/09/18 06:27 Hct 21.2 % (37.5-50.1) L 03/09/18 06:27 MCV 81.9 fL (83.0-100.0) L 03/09/18 06:27 RDW 15.4 % (11.5-14.5) H 03/09/18 06:27 MPV 8.9 fL (9.4-12.4) L 03/09/18 06:27 Neutrophils # 0.5 K/mcL (1.6-8.9) L 03/09/18 06:27 Lymphocytes # 0.1 K/mcL (0.6-4.6) L 03/09/18 06:27 Anisocytosis 1+ (Not Present) A 03/08/18 05:47 Microcytosis Present (Not Present) A 03/08/18 05:47 Macrocytosis Present (Not Present) A 03/08/18 05:47 Spherocytes 1+ (Not Present) A 03/08/18 05:47 Sodium 129 mEq/L (136-145) L 03/09/18 06:27 Potassium 2.9 mEq/L (3.5-5.1) L 03/09/18 06:27 Chloride 94 mEq/L (98-107) L 03/09/18 06:27 BUN 6 mg/dL (8-23) L 03/09/18 06:27 Creatinine 0.63 mg/dL (0.70-1.30) L 08/07/18 06:27 Glucose 146 mg/dL (70-105) H 03/09/18 06:27 Calculated Osmolality 268 (280-300) L 03/09/18 06:27 Calcium 8.0 mg/dL (8.6-10.3) L 03/09/18 06:27 Phosphorus 2.1 mg/dL (2.7-4.5) L 03/08/18 05:47 Serum Total Protein 5.8 g/dL (6.4-8.9) L 03/08/18 05:47 Albumin 3.0 g/dL (3.5-5.7) L 03/08/18 05:47 General appearance: Present: no acute distress - Respiratory Respiratory exam: Present: decreased breath sounds, CTAB - Cardiovascular Cardiovascular exam: Present: +S1, +S2 - GI/Abdominal GI/Abdominal exam: Present: normal bowel sounds, soft - Extremities Exam Extremities exam: Present: normal capillary refill, normal inspection - Neurological Exam Neurological exam: Present: alert, oriented X3, strengths equal and symetr throughout - Skin Skin exam: Present: dry, warm Palliative Quality Palliative Quality: Screen for Code Status: Yes, Screen for Goals of Care: Yes, Screen for Pain: Yes, If Pain Regimen Started, Initiate Bowel Regimen: Yes, Screen for Nausea/Vomitting: Yes Code Status: 03/07/18 23:59 Resuscitation Status: Active [RES] Routine Comment: Resuscitation Status: DNR-Comfort Care 03/09/18 11:07 DNR [Resuscitation Status: Active] [RES] Routine Comment: Resuscitation Status: DNR-Comfort Care-Arrest - Labs CBC & Chem 7: 03/09/18 06:27 03/09/18 06:27 Labs: Laboratory Results - last 24 hr 03/09/18 03/09/18 06:27 06:27 WBC 0.6 L* RBC 2.59 L Hgb 7.4 L Hct 21.2 L MCV 81.9 L MCH 28.6 MCHC 34.9 RDW 15.4 H Plt Count 167 MPV 8.9 L Immature Gran % 1.8 Seg Neutrophils % 77.1 Lymphocytes % 10.5 Monocytes % 8.8 Eosinophils % 0.0 Basophils % 1.8 Neutrophils # 0.5 L Lymphocytes # 0.1 L Monocytes # 0.1 Eosinophils # 0.0 Basophils # 0.0 Platelet Estimate Normal Sodium 129 L Potassium 2.9 L Chloride 94 L Carbon Dioxide 27 BUN 6 L Creatinine 0.63 L Est GFR ( Amer) > 60 Est GFR (Non-Af Amer) > 60 BUN/Creatinine Ratio 10 Glucose 146 H Calculated Osmolality 268 L Calcium 8.0 L Consult Discharge Plan - Plan [facility]errals: [facility] [Primary Care Provider] -
[2018-03-09] MEDS ORDERED: Potassium Chloride 40 MEQ, Lidocaine 1% 2 ML in D5% in Water 500 ML IVPB ONE ×2 (13:04→13:08)
[2018-03-09] MEDS: D5% in 0.9% NACL w KCl 20 MEQ/1,000 ML MLS IVC SCH (14:04)
--- NOTE | 2018-03-09 17:11 | Internal Med Progress Note ---
Hospitalist Progress Note - Encounter Date of Encounter: 03/09/18 Time of Encounter: 17:04 - Subjective Interval History: Mr. 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 He completed a cycle 1 week ago at which time he was seen in clinic by Dr Isamar Wick. He presents now on transfer from [facility] where he reported complaints of generalized malaise, debilitating fatigue and difficulty swallowing after receiving radiation and chemotherapy. Patient was admitted for dehydration, dysphagia unable to swallow, significant weight loss, failure to thrive. on 03/07. He has epigastric pain, unalbe to swallow food, nausea for 2 months, lost 30 Lbs. Patient is doing better ,today, tolerates liquid, burning is better, advanced to full liquids 1. stage 3 lung cancer, ongoing chemo and radiation 2.chemo-induced leukopenia 3. dysphasia from esophagitis and mucositis, on liquids, appreciate oncology help, on viscous lidocaine, carafate 4. dehydration, on IVF 5. goal of care, DNR-CCA appreciate palliative consult 6. Hyponatremia, on IVF, will check urine Osmo, and sodium - Exam Vitals: Temp Pulse Resp BP Pulse Ox 98.0 F 107 14 145/75 95 03/09/18 15:14 03/09/18 15:14 03/09/18 15:14 03/09/18 15:14 03/09/18 15:14 Exam: CONSTITUTIONAL: patient appears as an age appropriate male in no acute distress. EYES Clear sclerae, bilateral pupils are equal, reactive to light. EMOI. RESPIRATORY: No accessory muscle use, bilateral clear to auscultation, no wheezing, no crackles/rales. CARDIOVASCULAR: Regular heart rate, normal S1 and S2, no murmurs GASTROINTESTINAL: bowel sounds present, soft, no tenderness. MUSCULOSKELETAL: Joints in normal range of motion, no clubbing, no edema, no cyanosis. Bilateral peripheral pulses 2+. NEUROLOGIC: CN II to XII are grossly intact, no focal neurological deficit. - Assessment and Plan (1) Dehydration due to radiation Current Visit: Yes Status: Acute Assessment and Plan: contineu IVF (2) Nausea Current Visit: Yes Status: Acute Assessment and Plan: and dysphasia, is likley related to radiation related esophagitis and mucositis , appreciate oncology help, improving (3) Frailty Current Visit: Yes Status: Chronic (4) Hypokalemia Current Visit: Yes Status: Acute Assessment and Plan: IV replacement (5) COPD (chronic obstructive pulmonary disease) Current Visit: Yes Status: Chronic Assessment and Plan: on 2 l NC at home, stable (6) DVT prophylaxis Current Visit: Yes Status: Acute Assessment and Plan: heparin SC (7) Neutropenia Current Visit: Yes Status: Acute Assessment and Plan: The patient is afebrile and without clinical signs of infection. - on neutropenic precautions. NO need for G-CSF per oncology -Heme/Onc consult, follow up CBC daily -Monitor for fever and developing signs of infection. (8) Lung cancer Current Visit: Yes Status: Chronic Assessment and Plan: stage 3, ongoing chemoradiation DVT Prophylaxis: heparin SC - Summary of Assessment and Plan Summary of Assessment and Plan: contineu supportive and symptomatic care advance diet as tolerate, Monitor WBC, fever - Time Spent with Patient Total time spent is greater than 50% in coordination of care (as documented) at patient's floor/unit and/or counseling patient: 25 - 35 minutes Internal Medicine: Result - Labs CBC & Chem 7: 03/09/18 06:27 03/09/18 06:27 Labs: Short CBC 03/09/18 Range/Units 06:27 WBC 0.6 L* (4.3-11.1) K/mcL Hgb 7.4 L (12.9-16.9) g/dL Hct 21.2 L (37.5-50.1) % Plt Count 167 (140-400) K/mcL Neutrophils # 0.5 L (1.6-8.9) K/mcL BMP 03/09/18 06:27 Sodium 129 L Potassium 2.9 L Chloride 94 L Carbon Dioxide 27 BUN 6 L Creatinine 0.63 L Glucose 146 H Calcium 8.0 L Consult Discharge Plan - Plan [facility]errals: [facility] [Primary Care Provider] - (5) COPD (chronic obstructive pulmonary disease) Qualifiers: COPD type: emphysema Emphysema type: panlobular Qualified Code(s): J43.1 - Panlobular emphysema (7) Neutropenia Qualifiers: Neutropenia type: secondary to cancer chemotherapy Qualified Code(s): D70.1 - Agranulocytosis secondary to cancer chemotherapy; T45.1X5A - Adverse effect of antineoplastic and immunosuppressive drugs, initial encounter (8) Lung cancer Qualifiers: Laterality: left Lung location: upper lobe of lung Qualified Code(s): C34.12 - Malignant neoplasm of upper lobe, left bronchus or lung
[2018-03-09] MEDS: Ondansetron ODT 4 MG TAB.RAPDIS SL PRN (19:52)
[2018-03-10 04:04] LABS: Hematocrit 20.1 % (37.5-50.1); Hemoglobin 6.9 g/dL (12.9-16.9); Lymphocytes # 0.1 K/mcL (0.6-4.6); Mean Corpuscular HGB Conc 34.3 g/dL (31.6-35.5); Mean Corpuscular Hemoglobin 28.6 pg (28.0-33.3); Mean Corpuscular Volume 83.4 fL (83.0-100.0); Mean Platelet Volume 8.6 fL (9.4-12.4); Platelet Count 113 K/mcL (140-400); Red Blood Count 2.41 M/mcL (4.19-5.50); Red Cell Distribution Width 15.4 % (11.5-14.5)
[2018-03-10 04:20] LABS: Alanine Aminotransferase 16 Units/L (7-52); Albumin/Globulin Ratio 1.1 (1.1-2.2); Alkaline Phosphatase 63 Units/L (34-104); Aspartate Amino Transferase 30 Units/L (13-39); BUN/Creatinine Ratio 4 (6-26); Bilirubin,Direct 0.2 mg/dL (0.0-0.2); Bilirubin,Indirect 0.4 mg/dL (0.0-1.2); Bilirubin,Total 0.6 mg/dL (0.3-1.0); Blood Urea Nitrogen 3 mg/dL (8-23); Carbon Dioxide 27 mEq/L (23-29); Chloride 97 mEq/L (98-107); Globulin 2.8 g/dL (2.4-3.5); Glucose 125 mg/dL (70-105); Magnesium 1.5 mg/dL (1.6-2.6); Osmolality,Calculated 266 (280-300); Sodium 129 mEq/L (136-145); Total Protein 5.8 g/dL (6.4-8.9); eGFR For Non-African Americans > 60 (> 60)
[2018-03-10 04:36] LABS: Hypochromasia Present (Not Present); Neutrophils # 0.5 K/mcL (1.6-8.9); Platelet Estimate Slight Decrease (Normal)
[2018-03-10] MEDS: *HR* Heparin 5,000 UNIT/ML VIAL SQ SCH ×3 (06:00→20:30)
[2018-03-10] MEDS: Budesonide/Formoterol 160/4.5 MDI IH SCH ×2 (08:08→19:57)
[2018-03-10] MEDS: Tiotropium 18 MCG inhalation IH SCH (08:09)
[2018-03-10] MEDS: Lisinopril 20 MG TABLET PO SCH (09:44)
[2018-03-10] MEDS: Mirtazapine 15 MG TABLET PO SCH (09:44)
[2018-03-10] MEDS: levETIRAcetam 250 MG TABLET PO SCH ×2 (09:45→20:29)
[2018-03-10] MEDS: Folic Acid 1 MG TABLET PO SCH (09:45)
[2018-03-10] MEDS: Benzonatate 100 MG CAPSULE PO SCH ×3 (09:45→20:29)
[2018-03-10] MEDS: Lidocaine Viscous Oral Soln 15 ML SOLUTION MM SCH ×3 (09:47→15:14)
[2018-03-10] MEDS: Ammonium Lactate 30 APPL/225 GM BOTTLE TP SCH ×2 (09:48→20:30)
[2018-03-10] MEDS: Metoclopramide 10 MG/10 ML UD.LIQ PO SCH ×4 (09:48→20:28)
[2018-03-10] MEDS: Magic Mouthwash 10 ML UD Cup PO PRN (10:01)
[2018-03-10] MEDS: MORPHINE SUL Oral CONC 10 MG/0.5 ML ORAL.SYG PO PRN ×2 (10:01→15:15)
[2018-03-10] MEDS: D5% in 0.9% NACL w KCl 20 MEQ/1,000 ML MLS IVC SCH (10:05)
--- NOTE | 2018-03-10 14:59 | Oncology Inp Progress Note ---
<James Schwartz - Last Filed: 03/10/18 14:54> Date of Encounter: 03/10/18 Time of Encounter: 14:55 (1) Dysphagia Current Visit: Yes Status: Acute Assessment and plan: franklin esophagitis/mucositis symptoms stable with viscous lidocaine, carafate will continue this advance diet as tolerated. may try non acidic food, blander food Qualifiers: Dysphagia type: unspecified Qualified Code(s): R13.10 - Dysphagia, unspecified (2) Neutropenia Current Visit: Yes Status: Acute Assessment and plan: Patient has Stage IIIa adenocarcinoma of the lingula he is on carboplatin with susan with last treatment on 03/02/18 he presented with neutropenia with ANC of 300. Patient does not have fever. Denies cough, sputum production, diarrhea. ANC now 500 for 48 hours no fever, chills no antibiotics or G-CSF indicated at this point. Qualifiers: Neutropenia type: secondary to cancer chemotherapy Qualified Code(s): D70.1 - Agranulocytosis secondary to cancer chemotherapy; T45.1X5A - Adverse effect of antineoplastic and immunosuppressive drugs, initial encounter (3) Adenocarcinoma of left lung, stage 3 Current Visit: Yes Status: Chronic Oncology: Subj Interval history: No acute changes overnight. Denies fever, chills. Reporting tolerating liquids but still having pain with sold food. he tried to eat peaches for breakfast and lunch but was difficult. - Constitutional Vitals: Vital Signs Temp Pulse Resp BP Pulse Ox 03/10/18 12:00 98 F 111 16 105/57 94 03/10/18 08:10 18 95 03/10/18 07:25 98.8 F 108 18 138/78 95 03/10/18 04:49 98.6 F 109 17 115/65 95 03/10/18 00:18 99.4 F 120 14 111/65 90 03/09/18 22:31 2 93 03/09/18 19:46 98.0 F 113 14 148/69 90 03/09/18 15:14 98.0 F 107 14 145/75 95 Intake and Output 03/09/18 03/10/18 03/10/18 23:59 07:59 15:59 Intake Total 522 / 522 350 / 350 104 / 104 Output Total 450 / 450 675 / 675 400 / 400 Balance 72 / 72 -325 / -325 -296 / -296 Intake: IV Fluids 522 / 522 104 / 104 Magnesium Sulfate 2 GM In 0.9 % 104 / 104 Sodium Chloride 100 ML @ 104 mls/hr IVPB ONCE ONE Rx#: [id number] KCl 40 MEQ Xylocaine 2 ML In 522 / 522 Dextrose 5% 500 ML @ 130.5 mls/ hr IVPB ONCE ONE Rx#:[id number] Oral 0 / 0 350 / 350 Output: Urine 400 / 400 675 / 675 400 / 400 Emesis 50 / 50 Other: Meal fulls Percent of Meal Consumed 0% Weight 60.8 kg Patient Weight 03/10/18 23:59 Weight 60.8 kg - Additional findings Additional findings: General: Pleasant male, cachectic, weak Heart: Regular rate and rhythm with no murmur Lungs: Clear to auscultation bilaterally Abdomen: Soft nontender, nondistended positive bowel sounds Skin: warm and dry, absent rash Extremities: Absent pedal edema, Neuro: Alert oriented 3 Vascular: Pedal and radial pulses 2 out of 4 Oncology: Obj Data - Labs CBC & Chem 7: 03/10/18 03:48 03/10/18 03:48 Labs: Laboratory Results - last 24 hr 03/10/18 03/10/18 03:48 03:48 WBC 0.6 L* RBC 2.41 L Hgb 6.9 L Hct 20.1 L MCV 83.4 MCH 28.6 MCHC 34.3 RDW 15.4 H Plt Count 113 L MPV 8.6 L Seg Neutrophils % 76.0 Band Neutrophils % 2.0 Lymphocytes % 14.0 Monocytes % 4.0 Eosinophils % 2.0 Basophils % 2.0 Neutrophils # 0.5 L Lymphocytes # 0.1 L Monocytes # 0.0 Eosinophils # 0.0 Basophils # 0.0 Platelet Estimate Slight Decrease L Hypochromasia Present A Sodium 129 L Potassium 4.0 D Chloride 97 L Carbon Dioxide 27 BUN 3 L Creatinine 0.71 Est GFR ( Amer) > 60 Est GFR (Non-Af Amer) > 60 BUN/Creatinine Ratio 4 L Glucose 125 H Calculated Osmolality 266 L Calcium 8.0 L Magnesium 1.5 L Total Bilirubin 0.6 Direct Bilirubin 0.2 Indirect Bilirubin 0.4 AST 30 ALT 16 Alkaline Phosphatase 63 Serum Total Protein 5.8 L Albumin 3.0 L Globulin 2.8 Albumin/Globulin Ratio 1.1 Consult Discharge Plan - Plan [facility]errals: [facility]Primary Care Provider[facility] - <Damien Wick S - Last Filed: 03/10/18 22:24> Date of Encounter: 03/10/18 - Constitutional Vitals: Vital Signs Temp Pulse Resp BP Pulse Ox 03/10/18 19:59 16 97 03/10/18 18:32 98.7 F 104 16 127/64 96 03/10/18 15:51 99.2 F 105 14 109/63 95 03/10/18 12:00 98 F 111 16 105/57 94 03/10/18 08:10 18 95 03/10/18 07:25 98.8 F 108 18 138/78 95 03/10/18 04:49 98.6 F 109 17 115/65 95 03/10/18 00:18 99.4 F 120 14 111/65 90 03/09/18 22:31 2 93 Intake and Output 03/10/18 03/10/18 03/11/18 08:59 16:59 00:59 Intake Total 150 / 150 1104 / 1104 120 / 120 Output Total 425 / 425 1050 / 1050 Balance -275 / -275 54 / 54 120 / 120 Intake: IV Fluids 1104 / 1104 KCl 20mEq in D5-0.9 NaCl 20 meq 1000 / 1000 In 1,000 ml @ 100 mls/hr IVC . Q10H KAROLYN Rx#:[id number] Magnesium Sulfate 2 GM In 0.9 % 104 / 104 Sodium Chloride 100 ML @ 104 mls/hr IVPB ONCE ONE Rx#: [id number] Oral 150 / 150 120 / 120 Output: Urine 425 / 425 1050 / 1050 Other: Meal Dinner Percent of Meal Consumed 0% Weight 60.8 kg Patient Weight 03/11/18 00:59 Weight 60.8 kg Oncology: Obj Data - Labs CBC & Chem 7: 03/10/18 03:48 03/10/18 03:48 Labs: Laboratory Results - last 24 hr 03/10/18 03/10/18 03:48 03:48 WBC 0.6 L* RBC 2.41 L Hgb 6.9 L Hct 20.1 L MCV 83.4 MCH 28.6 MCHC 34.3 RDW 15.4 H Plt Count 113 L MPV 8.6 L Seg Neutrophils % 76.0 Band Neutrophils % 2.0 Lymphocytes % 14.0 Monocytes % 4.0 Eosinophils % 2.0 Basophils % 2.0 Neutrophils # 0.5 L Lymphocytes # 0.1 L Monocytes # 0.0 Eosinophils # 0.0 Basophils # 0.0 Platelet Estimate Slight Decrease L Hypochromasia Present A Sodium 129 L Potassium 4.0 D Chloride 97 L Carbon Dioxide 27 BUN 3 L Creatinine 0.71 Est GFR ( Amer) > 60 Est GFR (Non-Af Amer) > 60 BUN/Creatinine Ratio 4 L Glucose 125 H Calculated Osmolality 266 L Calcium 8.0 L Magnesium 1.5 L Total Bilirubin 0.6 Direct Bilirubin 0.2 Indirect Bilirubin 0.4 AST 30 ALT 16 Alkaline Phosphatase 63 Serum Total Protein 5.8 L Albumin 3.0 L Globulin 2.8 Albumin/Globulin Ratio 1.1 - Attending Attestation I examined this patient and my medical decision-making was reviewed with the resident. I agree with the documented findings, disposition and treatment plan as described except to the extent set forth below. Still with dysphagia. Oral intake scant but modestly improved. Words of encouragement provided. Continue with supportive measures. ANC stable, and expect to increase over next few days. No indication for antibiotics.
--- NOTE | 2018-03-10 17:07 | Internal Med Progress Note ---
Hospitalist Progress Note - Encounter Date of Encounter: 03/10/18 Time of Encounter: 16:25 - Subjective Interval History: Mr Dumont is currently admitted for acute esophagitis and neutopenia related to chemotherapy. He remains moderate to high risk due to potential for worsening clinical status. Mr Dumont is still having pain when he swallows. No fever or chills. Magic mouthwash helps. Taking in some liquids but not much solid. No CP or SOB. No diarrhea noted. Willing to try a popsicle at this time. - Exam Vitals: Temp Pulse Resp BP Pulse Ox 99.2 F 105 14 109/63 95 03/10/18 15:51 03/10/18 15:51 03/10/18 15:51 03/10/18 15:51 03/10/18 15:51 Exam: General: Alert and oriented. Resting comfortably in bed at this time. Skin: Mild erythema on chest Head: NC, atraumatic EENT: EOM, pupils equal, round and reactive. Oral mucosa dry. Cardiovascular: Normal S1 & S2, no rubs, murmurs or gallops. No JVD. Pulse regular. Lungs: Normal breath sounds, no wheezes or crackles at this time. Good inspiratory effort Abdomen: Soft, non-tender, no rigidity. Normal bowel sounds Extremities: No deformity, no edema or tenderness, no joint swelling or clubbing. Neurological: Normal cognition and motor skills. No focal deficit noted. Pulses: Carotid and radial pulses normal +2. - Assessment and Plan (1) Esophagitis Current Visit: Yes Status: Acute Assessment and Plan: Related to chemotherapy and neutropenia. Continue supportive care with Magic mouthwash and local treatment. (2) Neutropenia Current Visit: Yes Status: Acute Assessment and Plan: Continues to be afebrile with no new signs of infection. Continue supportive care. Appreciate heme onc input. (3) Hyponatremia Current Visit: Yes Status: Acute Assessment and Plan: Monitoring at this time. (4) Lung cancer Current Visit: Yes Status: Chronic Assessment and Plan: Undergoing chemo and radiation therapy. -Care per oncology. (5) Dehydration due to radiation Current Visit: Yes Status: Acute Assessment and Plan: Has improved at this point. Will keep supplement based on PO intake. (6) Nausea Current Visit: Yes Status: Acute Assessment and Plan: Likely chemotherapy associated. -PRN Zofran. (7) Frailty Current Visit: Yes Status: Chronic Assessment and Plan: Related to severe copd and malignancy undergoing aggressive therapy. -Continue dronabinol for appetite stimulation. -Palliative care consult appreciated -Morphine prn for pain. (8) Radiation-induced dermatitis Current Visit: Yes Status: Acute Assessment and Plan: Grade 1. -Topical ammonium lactate moisturizer ordered BID. (9) Hypokalemia Current Visit: Yes Status: Resolved Assessment and Plan: Resolved. (10) COPD (chronic obstructive pulmonary disease) Current Visit: Yes Status: Chronic Assessment and Plan: No signs of acute exacerbation at this time. -Continue LABA/ICS BID and BETINA prn. -Supplemental oxygen as needed. DVT Prophylaxis: Subqu heparin - Time Spent with Patient Total time spent is greater than 50% in coordination of care (as documented) at patient's floor/unit and/or counseling patient: Plan of Care Discussed with: patient Internal Medicine: Result - Labs CBC & Chem 7: 03/10/18 03:48 03/10/18 03:48 Labs: Short CBC 03/10/18 Range/Units 03:48 WBC 0.6 L* (4.3-11.1) K/mcL Hgb 6.9 L (12.9-16.9) g/dL Hct 20.1 L (37.5-50.1) % Plt Count 113 L (140-400) K/mcL Neutrophils # 0.5 L (1.6-8.9) K/mcL BMP 03/10/18 03:48 Sodium 129 L Potassium 4.0 D Chloride 97 L Carbon Dioxide 27 BUN 3 L Creatinine 0.71 Glucose 125 H Calcium 8.0 L Liver Function 03/10/18 Range/Units 03:48 Total Bilirubin 0.6 (0.3-1.0) mg/dL Direct Bilirubin 0.2 (0.0-0.2) mg/dL AST 30 (13-39) Units/L ALT 16 (7-52) Units/L Alkaline Phosphatase 63 (34-104) Units/L Albumin 3.0 L (3.5-5.7) g/dL Consult Discharge Plan - Plan [facility]errals: [facility] [Primary Care Provider] - (2) Neutropenia Qualifiers: Neutropenia type: secondary to cancer chemotherapy Qualified Code(s): D70.1 - Agranulocytosis secondary to cancer chemotherapy; T45.1X5A - Adverse effect of antineoplastic and immunosuppressive drugs, initial encounter (4) Lung cancer Qualifiers: Laterality: left Lung location: upper lobe of lung Qualified Code(s): C34.12 - Malignant neoplasm of upper lobe, left bronchus or lung (10) COPD (chronic obstructive pulmonary disease) Qualifiers: COPD type: emphysema Emphysema type: panlobular Qualified Code(s): J43.1 - Panlobular emphysema
[2018-03-11] MEDS: MORPHINE SUL Oral CONC 10 MG/0.5 ML ORAL.SYG PO PRN ×3 (03:51→20:18)
[2018-03-11 04:20] LABS: Immature Granulocytes % 1.4 % (0-4); Red Cell Distribution Width 15.6 % (11.5-14.5)
[2018-03-11 04:21] LABS: Eosinophils % 1.4 %; Hematocrit 20.2 % (37.5-50.1); Hemoglobin 6.8 g/dL (12.9-16.9); Lymphocytes # 0.1 K/mcL (0.6-4.6); Lymphocytes % 11.4 %; Mean Corpuscular HGB Conc 33.7 g/dL (31.6-35.5); Mean Corpuscular Hemoglobin 28.8 pg (28.0-33.3); Mean Corpuscular Volume 85.6 fL (83.0-100.0); Mean Platelet Volume 9.1 fL (9.4-12.4); Monocytes # 0.1 K/mcL (0.0-1.3); Monocytes % 18.6 %; Neutrophils # 0.5 K/mcL (1.6-8.9); Red Blood Count 2.36 M/mcL (4.19-5.50); Segmented Neutrophils % 67.2 %
[2018-03-11 04:37] LABS: BUN/Creatinine Ratio 7 (6-26); Blood Urea Nitrogen 5 mg/dL (8-23); Calcium 8.1 mg/dL (8.6-10.3); Carbon Dioxide 24 mEq/L (23-29); Chloride 101 mEq/L (98-107); Glucose 118 mg/dL (70-105); Magnesium 1.9 mg/dL (1.6-2.6); Osmolality,Calculated 274 (280-300); Potassium 3.8 mEq/L (3.5-5.1); Sodium 133 mEq/L (136-145); eGFR For Non-African Americans > 60 (> 60)
[2018-03-11 04:41] LABS: Platelet Count 82 K/mcL (140-400)
[2018-03-11 04:42] LABS: Platelet Estimate Decreased (Normal)
[2018-03-11] MEDS: *HR* Heparin 5,000 UNIT/ML VIAL SQ SCH ×3 (05:54→20:19)
[2018-03-11] MEDS: Budesonide/Formoterol 160/4.5 MDI IH SCH ×2 (08:16→19:45)
[2018-03-11] MEDS: Tiotropium 18 MCG inhalation IH SCH (08:17)
[2018-03-11] MEDS: Folic Acid 1 MG TABLET PO SCH (08:24)
[2018-03-11] MEDS: Benzonatate 100 MG CAPSULE PO SCH ×3 (08:24→20:19)
[2018-03-11] MEDS: Mirtazapine 15 MG TABLET PO SCH (08:34)
[2018-03-11] MEDS: Lisinopril 20 MG TABLET PO SCH (08:34)
[2018-03-11] MEDS: Lidocaine Viscous Oral Soln 15 ML SOLUTION MM SCH ×2 (08:35→11:39)
[2018-03-11] MEDS: levETIRAcetam 250 MG TABLET PO SCH ×2 (08:35→20:19)
[2018-03-11] MEDS: Metoclopramide 10 MG/10 ML UD.LIQ PO SCH ×4 (08:35→20:19)
--- NOTE | 2018-03-11 09:20 | Internal Med Progress Note ---
Hospitalist Progress Note - Encounter Date of Encounter: 03/11/18 Time of Encounter: 09:17 - Subjective Interval History: Patient states significant improvement today. States he is able to swallow without much difficulty including solids. Says that his throat discomfort and burning has improved significantly and is currently only minor. Some able to swallow his medications. Still taking Magic mouthwash which he states helps. Denies fevers chills or night sweats. Denies nausea or vomiting. Denies weakness. - Exam Vitals: Temp Pulse Resp BP Pulse Ox 98.1 F 112 14 106/59 97 03/11/18 08:49 03/11/18 08:49 03/11/18 08:49 03/11/18 08:49 03/11/18 08:49 Exam: General: No apparent distress, and oriented 3, alert Head: Atraumatic normocephalic Eyes PERRLA, extraocular muscles intact Throat: Mild tenderness to palpation, trachea midline, whitish discoloration the back of the throat Cardio: Regular rate and rhythm systolic murmur Pulmonary: Clear to auscultation bilaterally no wheezes rales or rhonchi - Assessment and Plan (1) Esophagitis Current Visit: Yes Status: Acute Assessment and Plan: Related to chemotherapy and neutropenia Has improved significantly over the past 2 hours Tolerating liquids and solid Plan Continue supportive care with Magic mouthwash and local treatment. (2) Lung cancer Current Visit: Yes Status: Chronic Assessment and Plan: 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 -Care per oncology. (3) Dehydration due to radiation Current Visit: Yes Status: Acute Assessment and Plan: Has improved at this point. Will keep supplement based on PO intake. (4) Nausea Current Visit: Yes Status: Acute Assessment and Plan: Likely chemotherapy associated. -PRN Zofran. (5) Frailty Current Visit: Yes Status: Chronic Assessment and Plan: Related to severe copd and malignancy undergoing aggressive therapy. -Continue dronabinol for appetite stimulation. -Palliative care consult appreciated -Morphine prn for pain. (6) Radiation-induced dermatitis Current Visit: Yes Status: Acute Assessment and Plan: Grade 1. -Topical ammonium lactate moisturizer ordered BID. (7) Hypokalemia Current Visit: Yes Status: Resolved Assessment and Plan: Resolved. (8) COPD (chronic obstructive pulmonary disease) Current Visit: Yes Status: Chronic Assessment and Plan: No signs of acute exacerbation at this time. -Continue LABA/ICS BID and BETINA prn. -Supplemental oxygen as needed. (9) Neutropenia Current Visit: Yes Status: Acute Assessment and Plan: Continues to be afebrile with no new signs of infection. Continue supportive care. Appreciate heme onc input. (10) Hyponatremia Current Visit: Yes Status: Acute Assessment and Plan: Monitoring at this time. - Time Spent with Patient Total time spent is greater than 50% in coordination of care (as documented) at patient's floor/unit and/or counseling patient: Internal Medicine: Result - Labs CBC & Chem 7: 03/11/18 03:42 03/11/18 03:42 Labs: Short CBC 03/11/18 Range/Units 03:42 WBC 0.7 L* (4.3-11.1) K/mcL Hgb 6.8 L (12.9-16.9) g/dL Hct 20.2 L (37.5-50.1) % Plt Count 82 L (140-400) K/mcL Neutrophils # 0.5 L (1.6-8.9) K/mcL BMP 03/11/18 03:42 Sodium 133 L Potassium 3.8 Chloride 101 Carbon Dioxide 24 BUN 5 L Creatinine 0.72 Glucose 118 H Calcium 8.1 L Consult Discharge Plan - Plan [facility]errals: [facility] [Primary Care Provider] - (2) Lung cancer Qualifiers: Laterality: left Lung location: upper lobe of lung Qualified Code(s): C34.12 - Malignant neoplasm of upper lobe, left bronchus or lung (8) COPD (chronic obstructive pulmonary disease) Qualifiers: COPD type: emphysema Emphysema type: panlobular Qualified Code(s): J43.1 - Panlobular emphysema (9) Neutropenia Qualifiers: Neutropenia type: secondary to cancer chemotherapy Qualified Code(s): D70.1 - Agranulocytosis secondary to cancer chemotherapy; T45.1X5A - Adverse effect of antineoplastic and immunosuppressive drugs, initial encounter
--- NOTE | 2018-03-11 11:22 | Event Note ---
<James Schwartz - Last Filed: 03/11/18 11:19> Date of Encounter: 03/11/18 Time of Encounter: 11:20 Patient reports he is able to tolerate a solid diet today. He remains afebrile, and denies chills. ANC improved slightly. Primary team reports they will discharge today. Follow up with Dr. Wick scheduled for next week. Will sign off. <Damien Wick - Last Filed: 03/11/18 21:09> Date of Encounter: 03/11/18 - Attending Attestation I examined this patient and my medical decision-making was reviewed with the resident. I agree with the documented findings, disposition and treatment plan as described except to the extent set forth below. He is feeling better today. Drinking liquids comfortably. Soft foods tolerated. Ambulating without assistance, but fatigued. On exam, NC/AT, no mucositis. No lymphadenopathy. Diminished breath sounds. RRR w/o murmur. Abdomen is soft, NT, ND. Mniimal edema. CBC with hgb 6.8 and ANC 500. Plan was to d/c today, but recommend transfuse 2 U PRBC prior to d/c. He may be d/c after transfusion. He is to monitor for fever and chills closely. F/u arranged with me.
--- NOTE | 2018-03-11 14:15 | Discharge Summary ---
<Yuri Hinojosa - Last Filed: 03/11/18 14:45> - NOTES TO OUTPATIENT PROVIDER Notes to Outpatient Provider: Esophagitis related to Chemoradiation. nnuetropenia WBCcount 0.7 on discharge. 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 -Follow up with Oncology Qualifiers: Laterality: left Lung location: upper lobe of lung Qualified Code(s): C34.12 - Malignant neoplasm of upper lobe, left bronchus or lung (3) Dehydration due to radiation Priority: Secondary Status: Acute Assessment and Plan: Resolved (4) Nausea Priority: Secondary Status: Acute Assessment and Plan: Likely chemotherapy associated. -PRN Zofran. (5) Frailty Priority: Secondary Status: Chronic Assessment and Plan: Related to severe COPD and malignancy undergoing aggressive therapy. Outpatient monitoring (6) Radiation-induced dermatitis Priority: Secondary Status: Acute Assessment and Plan: Grade 1. -Topical ammonium lactate moisturizer ordered BID. (7) Hypokalemia Priority: Secondary Status: Resolved Assessment and Plan: Resolved. (8) COPD (chronic obstructive pulmonary disease) Priority: Secondary Status: Chronic Assessment and Plan: No signs of acute exacerbation at this time. -Continue LABA/ICS BID and BETINA prn. -Supplemental oxygen as needed. Qualifiers: COPD type: emphysema Emphysema type: panlobular Qualified Code(s): J43.1 - Panlobular emphysema (9) Neutropenia Priority: Secondary Status: Acute Assessment and Plan: Continues to be afebrile with no new signs of infection. Continue supportive care. Qualifiers: Neutropenia type: secondary to cancer chemotherapy Qualified Code(s): D70.1 - Agranulocytosis secondary to cancer chemotherapy; T45.1X5A - Adverse effect of antineoplastic and immunosuppressive drugs, initial encounter (10) Hyponatremia Priority: Secondary Status: Acute Assessment and Plan: Monitoring at this time. Hospital course: Mr. Dumont is a 72 year old male past medical history of left parietal CVA, COPD , stage IIIa (T1bN2) poorly differentiated adenocarcinoma left superior lingula diagnosed December 2017 patient was placed on concurrent chemoradiation with cisplatin and pemetrexed. With subsequent carboplatin substituted first cisplatin secondary to acute kidney injury. Patient presented as a transfer from [facility] for complaints of malaise difficulty swallowing and burning sensation in his throat. He had poor oral intake due to difficulty swallowing. Patient appeared to be dehydrated. And felt weak. He had headaches, numbness or focal weakness. There is no loss of bowel or bladder continence. Patient was neutropenic had her blood cell counts run 0.7. He did not show any fever and signs of infection during his stay. Patient was placed on Magic mouthwash and oral lidocaine. He was unable to tolerate liquids or solids until today. Patient was given IV fluids and potassium replacement during his hospital stay. Noted some hyponatremia. Sodium on discharge is 133. Patient is doing well currently and is stating his desire to go. - Time Spent with Patient Total time spent providing and/or coordinating discharge services: Greater than 30 minutes - Discharge Medications Prescriptions: Lidocaine HCl [Lidocaine HCl Viscous] 15 ml MM TID #450 ml Magic Mouthwash 10 ml PO TID #240 ml Metoclopramide [Reglan] 10 mg PO QIDAC #60 tablet Sucralfate [Carafate] 1 gm PO QIDAC #60 tablet Home Medications: Albuterol Sulfate [Proventil Hfa] 2 puff IH Q6H PRN 12/01/17 [History] Atorvastatin [Lipitor] 20 mg PO HS 12/01/17 [History] Budesonide/Formoterol 160/4.5 [Symbicort 160/4.5] 2 puff IH BIDR 12/01/17 [ History] Sertraline [Zoloft] 100 mg PO DAILY 12/01/17 [History] Tiotropium [Spiriva] 2 puff IH 0700 12/01/17 [History] Omeprazole [PriLOSEC] 20 mg PO DAILY #30 cap 01/14/18 [Rx] Dronabinol [Marinol] 5 mg PO BID 30 Days #60 capsule 01/18/18 [Rx] Mirtazapine [Remeron] 30 mg PO DAILY #30 tablet 01/25/18 [Rx] Sucralfate [Carafate] 1 gm PO QIDAC #1 bottle 02/09/18 [Rx] Ondansetron [Zofran ODT] 8 mg SL Q8H PRN #30 tab 02/17/18 [Rx] MORPHINE SUL Oral CONC [Roxanol Oral Conc] 10 mg PO Q3H PRN 7 Days #30 ml [Rx] Albuterol Neb [Proventil Neb] 2.5 mg IH BID PRN 03/08/18 [History] Benzonatate [Tessalon] 100 mg PO TID 03/08/18 [History] Calcium Carbonate 650 mg PO DAILY 03/08/18 [History] Cholecalciferol (D-3) [Vitamin D] 1,000 unit PO DAILY 03/08/18 [History] Clopidogrel [Plavix] 75 mg PO DAILY 03/08/18 [History] LevETIRAcetam [Roweepra] 500 mg PO BID 03/08/18 [History] Lisinopril [Zestril] 20 mg PO DAILY 03/08/18 [History] Loratadine [Allergy Relief] 10 mg PO DAILY 03/08/18 [History] Metoclopramide [Reglan] 10 mg PO Q6HR 03/08/18 [History] Prazosin HCl [Minipress] 5 mg PO HS 03/08/18 [History] Promethazine [Phenergan] 25 mg PO Q6HR PRN 03/08/18 [History] Sertraline [Zoloft] 100 mg PO DAILY 03/08/18 [History] hydroCHLOROthiazide [Hydrochlorothiazide] 25 mg PO DAILY 03/08/18 [History] Lidocaine HCl [Lidocaine HCl Viscous] 15 ml MM TID #450 ml 03/11/18 [Rx] Magic Mouthwash 10 ml PO TID #240 ml 03/11/18 [Rx] Metoclopramide [Reglan] 10 mg PO QIDAC #60 tablet 03/11/18 [Rx] Sucralfate [Carafate] 1 gm PO QIDAC #60 tablet 03/11/18 [Rx] Allergies/Adverse Reactions: 3 Allergy/AdvReac Type Severity Reaction Status Date / Time aspirin [ASA] Allergy Swelling Verified 02/24/18 15:13 of Lip/Tongue/Throat codeine Allergy Swelling Verified 02/24/18 15:13 of Lip/Tongue/Throat Penicillins [PCN] Allergy Hives Verified 02/24/18 15:13 Date of admission: 03/08/18 00:15 [facility]: [facility] Consults: 03/07/18 23:33 Consult to Oncology Hematology [CONS] Routine Consulting Provider: Damien Wick Reason for Consult: Patient recently administered chemotherapy and completed radiation cycles for lung cancer admitted for poor oral intake, dehydration and seen to have an ANC of 0.6. Is there indication for G-CSF? Call Completed: No 03/08/18 00:00 Consult to Palliative Care [CONS] Routine Comment: Consulting Provider: Palliative Care Cyndi Reason for Consult: patient with lung cancer undergoing chemo/rad here for FTT, dehydration and neutropenia. Seeking assistance with his care for comfort needs as he undergoes continued treatment. Call Completed: No 03/08/18 08:19 Consult to Physical Therapy [CONS] Routine Comment: Evaluate, develop and implement POC Reason for Consult: weakness Does patient have active BEDREST order?: No Is patient medically & hemodynamically stable?: Yes Patient assessed for mobility or mobilized this visit?: Yes 03/08/18 10:50 Consult to Speech Therapy [CONS] Routine Comment: Evaluate, develop and implement POC Reason for Consult: dysphasia Call Completed: No Discharging clinician: Yuri Hinojosa Anticipated date of discharge: 03/11/18 - Constitutional Vitals: Temp Pulse Resp BP Pulse Ox 99.0 F 123 18 112/67 94 03/11/18 10:49 03/11/18 10:49 03/11/18 10:49 03/11/18 10:49 03/11/18 10:49 General appearance: Present: A&O X 3, pleasant, no acute distress - Head Head exam: Present: atraumatic, normocephalic - Eye Eye exam: Present: EOMI, PERRL - ENT ENT exam: Present: mucous membranes moist Additional comments: Small white patches in the back of throat - Neck Neck exam general surgery: Present: normal inspection, tenderness, trachea midline. Absent: lymphadenopathy, thyromegaly - Respiratory Respiratory exam: Absent: respiratory distress, rhonchi, stridor, wheezes - Cardiovascular Cardiovascular exam: Present: RRR, +S1, +S2. Absent: diastolic murmur, rubs, + S3, +S4 - GI/Abdominal GI/Abdominal exam: Present: normal bowel sounds - Neurological Exam Neurological exam: Present: alert, CN II-XII intact, oriented X3, no focal deficits - Psychiatric Psychiatric exam: Present: normal affect, normal mood - Patient Status Disposition: Home, Self-Care Condition: Good Functional capacity at discharge: independent ambulation Overall status at discharge: patient is progressing back to baseline - Discharge Instructions Instructions: Neutropenia (DC) Follow Up With: Damien Wick MD [Partnered Physician] - 03/23/18 8:30 am (Patient will have treatment after the appointment. Thank you) [facility] [Primary Care Provider] - 03/19/18 3:00 pm () Additional Instructions: Follow-up with Dr. Wick scheduled next week. Follow-up with primary care physician. - Diet and Activity Activity: increase activity as tolerated Diet: advance to your usual diet <Sanchez Rios - Last Filed: 03/11/18 17:41> Orders not resulted at time of discharge: Pending orders 03/11/18 17:21 Red Blood Cells [BBK] Stat Type and Screen [BBK] Stat 03/12/18 04:00 CBC [Complete Blood Count] [HEME] AM 0400 Date of Encounter: 03/11/18 - Discharge Diagnosis (1) Esophageal yeast infection Priority: Primary Status: Suspected (2) Esophagitis Status: Acute (3) Antineoplastic chemotherapy induced pancytopenia Priority: Secondary Status: Acute (4) Lung cancer Status: Chronic Qualifiers: Laterality: left Lung location: upper lobe of lung Qualified Code(s): C34.12 - Malignant neoplasm of upper lobe, left bronchus or lung (5) Dehydration due to radiation Status: Resolved (6) Nausea Status: Resolved (7) Frailty Status: Chronic (8) Radiation-induced dermatitis Status: Acute (9) Hypokalemia Status: Resolved (10) COPD (chronic obstructive pulmonary disease) Status: Chronic Qualifiers: COPD type: emphysema Emphysema type: panlobular Qualified Code(s): J43.1 - Panlobular emphysema (11) Neutropenia Status: Acute Qualifiers: Neutropenia type: secondary to cancer chemotherapy Qualified Code(s): D70.1 - Agranulocytosis secondary to cancer chemotherapy; T45.1X5A - Adverse effect of antineoplastic and immunosuppressive drugs, initial encounter (12) Hyponatremia Status: Acute Hospital course: Mr. Dumont is a 72 year old male - Time Spent with Patient Total time spent providing and/or coordinating discharge services: 37min Date of admission: 03/08/18 00:15 Primary care physician: PCP [place] Consults: 03/07/18 23:33 Consult to Oncology Hematology [CONS] Routine Consulting Provider: Damien Wick Reason for Consult: Patient recently administered chemotherapy and completed radiation cycles for lung cancer admitted for poor oral intake, dehydration and seen to have an ANC of 0.6. Is there indication for G-CSF? Call Completed: No 03/08/18 00:00 Consult to Palliative Care [CONS] Routine Comment: Consulting Provider: Palliative Care Cyndi Reason for Consult: patient with lung cancer undergoing chemo/rad here for FTT, dehydration and neutropenia. Seeking assistance with his care for comfort needs as he undergoes continued treatment. Call Completed: No 03/08/18 08:19 Consult to Physical Therapy [CONS] Routine Comment: Evaluate, develop and implement POC Reason for Consult: weakness Does patient have active BEDREST order?: No Is patient medically & hemodynamically stable?: Yes Patient assessed for mobility or mobilized this visit?: Yes 03/08/18 10:50 Consult to Speech Therapy [CONS] Routine Comment: Evaluate, develop and implement POC Reason for Consult: dysphasia Call Completed: No - Constitutional Vitals: Temp Pulse Resp BP Pulse Ox 98.4 F 119 18 150/73 94 03/11/18 14:38 03/11/18 14:38 03/11/18 14:38 03/11/18 14:38 03/11/18 14:38 - Attending Attestation I examined this patient and my medical decision-making was reviewed with the Resident Physician on 03/11/18. I agree with the documented findings, disposition and treatment plan as described except to the extent set forth below. Mr Dumont has been admitted for esophagitis due to radiation and chemotherapy. He is now tolerating some PO diet. Blood counts stable. He is afebrile and ready for discharge home with outpatient follow up. Exam alert Comfortable at this time. Mucus membranes dry. Some thrush noted Heart reg Lungs with some wheeze on R Abd soft No edema Plan D/C home today. Follow up with oncology. Continue Magic mouthwash, viscous lidocaine, reglan and carafate - [facility] and son told need to spanish moss picker before 5. Further diagnoses as above.
[2018-03-11] MEDS: Magic Mouthwash 10 ML UD Cup PO PRN (20:20)
[2018-03-11] MEDS: Ammonium Lactate 30 APPL/225 GM BOTTLE TP SCH (20:20)
[2018-03-11] MEDS: Ondansetron ODT 4 MG TAB.RAPDIS SL PRN (20:26)
[2018-03-11] MEDS ORDERED: 0.9 % Sodium Chloride 500 ML IVC ONE (23:45)
[2018-03-11] MEDS ORDERED: 0.9 % Sodium Chloride 500 ML ONE (23:49)
[2018-03-12] MEDS ORDERED: 0.9 % Sodium Chloride 500 ML ONE (00:26)
[2018-03-12] MEDS: *HR* Heparin 5,000 UNIT/ML VIAL SQ SCH (07:35)
[2018-03-12] MEDS: Budesonide/Formoterol 160/4.5 MDI IH SCH (08:07)
[2018-03-12] MEDS: Tiotropium 18 MCG inhalation IH SCH (08:07)
[2018-03-12] MEDS: Mirtazapine 15 MG TABLET PO SCH (08:44)
[2018-03-12] MEDS: Lisinopril 20 MG TABLET PO SCH (08:44)
[2018-03-12] MEDS: Lidocaine Viscous Oral Soln 15 ML SOLUTION MM SCH (08:44)
[2018-03-12] MEDS: Metoclopramide 10 MG/10 ML UD.LIQ PO SCH (08:44)
[2018-03-12] MEDS: Benzonatate 100 MG CAPSULE PO SCH (08:44)
[2018-03-12] MEDS: Folic Acid 1 MG TABLET PO SCH (08:45)
[2018-03-12] MEDS: levETIRAcetam 250 MG TABLET PO SCH (08:45)
[2018-03-12] MEDS: Ammonium Lactate 30 APPL/225 GM BOTTLE TP SCH ×2 (08:45→15:14)
[2018-03-12] MEDS: MORPHINE SUL Oral CONC 10 MG/0.5 ML ORAL.SYG PO PRN (09:07)
[2018-03-12 09:20] LABS: Red Cell Distribution Width 15.2 % (11.5-14.5)
[2018-03-12 09:21] LABS: Basophils % 0.9 %; Hematocrit 29.7 % (37.5-50.1); Hemoglobin 10.2 g/dL (12.9-16.9); Immature Granulocytes % 1.7 % (0-4); Lymphocytes # 0.2 K/mcL (0.6-4.6); Lymphocytes % 14.7 %; Mean Corpuscular HGB Conc 34.3 g/dL (31.6-35.5); Mean Corpuscular Hemoglobin 29.7 pg (28.0-33.3); Mean Corpuscular Volume 86.6 fL (83.0-100.0); Mean Platelet Volume 10.7 fL (9.4-12.4); Monocytes # 0.4 K/mcL (0.0-1.3); Monocytes % 30.2 %; Neutrophils # 0.6 K/mcL (1.6-8.9); Red Blood Count 3.43 M/mcL (4.19-5.50); Segmented Neutrophils % 52.5 %
[2018-03-12 10:04] LABS: Platelet Count 41 K/mcL (140-400)
[2018-03-12 10:07] LABS: Platelet Estimate Decreased (Normal)
--- NOTE | 2018-03-12 10:18 | Internal Med Progress Note ---
<Yuri Hinojosa W - Last Filed: 03/12/18 10:53> Hospitalist Progress Note - Encounter Date of Encounter: 03/12/18 Time of Encounter: 10:16 - Subjective Interval History: patient states he is doing well today. He did have some pain in his throat when eating this am. He did not have viscous lidocaine before his meal. He only ate about a third of his meal. States he was able to get down relatively easily despite the burning sensation. Patient was transfused 2 L of blood hemoglobin is currently 10.2 after transfusions was 6.2 before. States overall he is doing well like to go home. - Exam Vitals: Temp Pulse Resp BP Pulse Ox 98.2 F 101 18 108/57 98 03/12/18 07:27 03/12/18 07:27 03/12/18 08:07 03/12/18 07:27 03/12/18 08:07 Exam: General: No apparent distress, alert and oriented, appropriate Head: Atraumatic normocephalic Eyes extraocular muscles intact, pupils equal round reactive to light Throat: Trachea midline, no lymphadenopathy, some tenderness to palpation Cardio: Regular rate and rhythm no murmurs rubs or gallops Pulmonary: clear to auscultation bilaterally, no wheezes rales or rhonchi - Assessment and Plan (1) Esophagitis Status: Acute Assessment and Plan: Related to chemotherapy and neutropenia Continues to improve Viscous lidocaine helps Tolerating liquids and solid Plan Continue magic mouthwash and lidocaine mouthwash at home (2) Lung cancer Status: Chronic Assessment and Plan: 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 -Follow up with Oncology (3) Nausea Status: Resolved Assessment and Plan: Likely chemotherapy associated. -PRN Zofran. (4) Frailty Status: Chronic Assessment and Plan: Related to severe COPD and malignancy undergoing aggressive therapy. Outpatient monitoring (5) Radiation-induced dermatitis Status: Acute Assessment and Plan: Grade 1. -Topical ammonium lactate moisturizer ordered BID. (6) Hypokalemia Status: Resolved Assessment and Plan: Resolved (7) COPD (chronic obstructive pulmonary disease) Status: Chronic Assessment and Plan: No signs of acute exacerbation at this time. -Continue LABA/ICS BID and BETINA prn. -Supplemental oxygen as needed. (8) Neutropenia Status: Acute Assessment and Plan: WBC count 0.7 Patient watching for fevers and chills Monitor closely (9) Hyponatremia Status: Acute Assessment and Plan: monitoring (10) Esophageal yeast infection Status: Suspected Assessment and Plan: Continue nystatin mouthwash (11) Antineoplastic chemotherapy induced pancytopenia Status: Acute Assessment and Plan: Follow with onc. - Time Spent with Patient Total time spent is greater than 50% in coordination of care (as documented) at patient's floor/unit and/or counseling patient: Internal Medicine: Result - Labs CBC & Chem 7: 03/12/18 09:02 03/11/18 03:42 Labs: Short CBC 03/12/18 Range/Units 09:02 WBC 1.2 L D (4.3-11.1) K/mcL Hgb 10.2 L D (12.9-16.9) g/dL Hct 29.7 L (37.5-50.1) % Plt Count 41 L (140-400) K/mcL Neutrophils # 0.6 L (1.6-8.9) K/mcL Consult Discharge Plan - Plan Instructions: Neutropenia (DC) Additional Instructions: Follow-up with Dr. Wick scheduled next week. Follow-up with primary care physician. Referrals: Damien Wick MD [Partnered Physician] - 03/17/18 8:45 am (Patient will have treatment after the appointment. 03/23/2018 Thank you) [facility] [Primary Care Provider] - 03/19/18 3:00 pm () Prescriptions: Lidocaine HCl [Lidocaine HCl Viscous] 15 ml MM TID #450 ml Magic Mouthwash 10 ml PO TID #240 ml Metoclopramide [Reglan] 10 mg PO QIDAC #60 tablet Sucralfate [Carafate] 1 gm PO QIDAC #60 tablet <Sanchez Rios - Last Filed: 03/12/18 20:13> Hospitalist Progress Note - Encounter Date of Encounter: 03/12/18 - Exam Vitals: Temp Pulse Resp BP Pulse Ox 97.7 F 96 16 143/72 99 03/12/18 15:25 03/12/18 15:25 03/12/18 15:25 03/12/18 15:25 03/12/18 15:25 - Assessment and Plan (1) Lung cancer Status: Chronic (2) Nausea Status: Resolved (3) Frailty Status: Chronic (4) Radiation-induced dermatitis Status: Acute (5) Hypokalemia Status: Resolved (6) COPD (chronic obstructive pulmonary disease) Status: Chronic (7) Neutropenia Status: Acute (8) Esophagitis Status: Acute (9) Hyponatremia Status: Acute (10) Esophageal yeast infection Status: Suspected (11) Antineoplastic chemotherapy induced pancytopenia Status: Acute - Time Spent with Patient Total time spent is greater than 50% in coordination of care (as documented) at patient's floor/unit and/or counseling patient: Internal Medicine: Result - Labs CBC & Chem 7: 03/12/18 09:02 03/11/18 03:42 Labs: Short CBC 03/12/18 Range/Units 09:02 WBC 1.2 L D (4.3-11.1) K/mcL Hgb 10.2 L D (12.9-16.9) g/dL Hct 29.7 L (37.5-50.1) % Plt Count 41 L (140-400) K/mcL Neutrophils # 0.6 L (1.6-8.9) K/mcL - Attending Attestation I examined this patient and my medical decision-making was reviewed with the Resident Physician on 03/12/18. I agree with the documented findings, disposition and treatment plan as described except to the extent set forth below. Mr Dumont is currently admitted with esophagitis due to chemo and radiation. He has received blood. He remains moderate risk. Mr Dumont is feeling better today. He has been eating some. No fever or chills. WBC improved. H/H better after blood. Exam alert Comfortable Mucus membranes dry Heart reg No wheeze abd soft I/P 1. Esophagitis 2. Neutropenia Further diagnoses and plan as above D/C home today. <Yuri Hinojosa - Last Filed: 03/12/18 10:53> (2) Lung cancer Qualifiers: Laterality: left Lung location: upper lobe of lung Qualified Code(s): C34.12 - Malignant neoplasm of upper lobe, left bronchus or lung (7) COPD (chronic obstructive pulmonary disease) Qualifiers: COPD type: emphysema Emphysema type: panlobular Qualified Code(s): J43.1 - Panlobular emphysema (8) Neutropenia Qualifiers: Neutropenia type: secondary to cancer chemotherapy Qualified Code(s): D70.1 - Agranulocytosis secondary to cancer chemotherapy; T45.1X5A - Adverse effect of antineoplastic and immunosuppressive drugs, initial encounter <Sanchez Rios - Last Filed: 03/12/18 20:13> (1) Lung cancer Qualifiers: Laterality: left Lung location: upper lobe of lung Qualified Code(s): C34.12 - Malignant neoplasm of upper lobe, left bronchus or lung (6) COPD (chronic obstructive pulmonary disease) Qualifiers: COPD type: emphysema Emphysema type: panlobular Qualified Code(s): J43.1 - Panlobular emphysema (7) Neutropenia Qualifiers: Neutropenia type: secondary to cancer chemotherapy Qualified Code(s): D70.1 - Agranulocytosis secondary to cancer chemotherapy; T45.1X5A - Adverse effect of antineoplastic and immunosuppressive drugs, initial encounter
[2018-03-12 15:29] VITALS: BP 143/72
== END 2018-03-12 17:43 | disposition home or self-care (01) | DRG 391 ==
LOC: 3ANU → SUATTDRO 03-08 00:15
PROVIDERS: ADMIT Student in an Organized Health Care Education/Training Program; ATTEND Internal Medicine

== ENCOUNTER 2018-05-23 18:31 | Inpatient (IN) ==
[2018-05-24] MEDS ORDERED: Albuterol 2.5 MG/3 ML NEBULIZER IH PRN (04:40)
[2018-05-24] MEDS ORDERED: Azithromycin 500 MG in D5% in Water 250 ML IVPB SCH (05:00)
[2018-05-24] MEDS: Ipratropium/Albuterol Neb 3 ML IH SCH ×4 (05:05→21:09)
[2018-05-24] MEDS ORDERED: Naloxone 0.4 MG/ML INJ IVP PRN (05:20)
[2018-05-24 05:31] LABS: Basophils % 0.2 %; Hematocrit 27.9 % (37.5-50.1); Immature Granulocytes % 0.3 % (0-4); Lymphocytes # 0.6 K/mcL (0.6-4.6); Lymphocytes % 10.1 %; Mean Corpuscular HGB Conc 32.3 g/dL (31.6-35.5); Mean Corpuscular Volume 96.2 fL (83.0-100.0); Mean Platelet Volume 9.6 fL (9.4-12.4); Monocytes # 0.7 K/mcL (0.0-1.3); Neutrophils # 4.5 K/mcL (1.6-8.9); Platelet Count 363 K/mcL (140-400); Red Cell Distribution Width 17.1 % (11.5-14.5); Segmented Neutrophils % 77.4 %
[2018-05-24 05:53] LABS: Alanine Aminotransferase 13 Units/L (7-52); Albumin 2.8 g/dL (3.5-5.7); Albumin/Globulin Ratio 0.9 (1.1-2.2); Alkaline Phosphatase 81 Units/L (34-104); Aspartate Amino Transferase 28 Units/L (13-39); BUN/Creatinine Ratio 42 (6-26); Bilirubin,Total 0.3 mg/dL (0.3-1.0); Blood Urea Nitrogen 25 mg/dL (8-23); Calcium 8.1 mg/dL (8.6-10.3); Carbon Dioxide 28 mEq/L (23-29); Chloride 99 mEq/L (98-107); Globulin 3.2 g/dL (2.4-3.5); Glucose 156 mg/dL (70-105); Osmolality,Calculated 286 (280-300); Potassium 3.7 mEq/L (3.5-5.1); Sodium 134 mEq/L (136-145); eGFR For Non-African Americans > 60 (> 60)
[2018-05-24 06:22] LABS: Anisocytosis 1+ (Not Present); Large Platelets Present (Not Present); Macrocytosis Present (Not Present); Platelet Estimate Normal (Normal)
--- NOTE | 2018-05-24 06:41 | Internal Med History&Physical ---
Date of Encounter: 05/24/18 Time of Encounter: 05:10 Internal Medicine - H&P: HPI Chief complaint: COPD exacerbation Admitted From: Hospital to Hospital Transfer Plans for Post Hospital Care: Home History of present illness: Mr. Dumont is a 73 year old male Patient presented from [facility] emergency room with a 3 week history of shortness of breath. He states that he is never had shortness of breath quite like this before. He has had history of COPD exacerbations however. He is on oxygen at home at 2 L nasal cannula, but states despite this he was not able to catch his breath. Of note, patient has a known diagnosis of stage III squamous cell lung cancer, which according to [facility] emergency room records he is not currently receiving treatment for it. He does however have a G-tube in place and is unable to take anything by mouth. He called the ambulance who came to his home, found him initially with an oxygen saturation in the 70s. His oxygen improved after being started on nasal cannula oxygen and he was in the mid 90s. However upon arrival to the [facility] ER his oxygen saturation was 66%. He was placed on BiPAP and after 2 hours of this in the emergency room his saturations improved and he was able to be weaned back to nasal cannula and maintained saturations in the 90s. Chest x-ray was performed which showed an increased density on the left, a CT angiogram of his chest was performed which was negative for pulmonary embolism but did show severe emphysema and fibrotic changes of the lung. Rl burks has a significant smoking history of 1 pack per day, but he quit 4 years ago. Lab work performed at the [facility] ER showed a BNP of 17,392, initial troponin of 0.057, repeat troponin was 0.060. EKG did not show ischemic changes. Lactic acid initially was 4.2 but improved 3.2 on repeat. CBC was within normal limits, BMP initially showed a potassium of 2.8, otherwise was within normal limits. Imaging also indicated that patients G-tube had migrated into the antrum of the stomach, and the radiologist was concerned for gastric outlet obstruction. The ER physician adjusted this, and secured it in place better. Patient was started on ceftriaxone, azithromycin, prednisone and breathing treatments prior to being transferred to [facility] for further management. Upon my assessment, patient has received wreathing treatments and is currently on oxygen. He states that he is feeling much better. He denies nausea, vomiting, diarrhea, constipation. He denies chest pain at this time as well as abdominal pain. I discussed with the patient CODE STATUS, and initially he indicated that he did not want to be resuscitated. After further clarification, patient agreed to be full code but did not want to much effort if things appeared to not be going well. Past Med Surg Social Fam HX - Past Medical History Medical history: cancer, COPD Additional medical history: htn. copd. lung nodule Psychiatric history: anxiety, depression, PTSD - Past Surgical History Surgical History: other Additional surgical history: right CTR. left arm ORIF. PEG placement - Social History Smoking Status: Former smoker Packs per day: 1 pack every 3 days, also used chew tobacco Smokeless Tobacco Status: Yes Alcohol use: none Drug use: none - Family History Mother Age: 69 Living Status: Hx Family Cardiac Disorders: Yes Hx Family Respiratory Disorders: Yes (TB+) Hx Family Cancer: Yes Hx Family GI Disorders: Yes Father History Unknown: Yes Age: 73 Internal Medicine - H&P: Meds Albuterol Sulfate [Proventil Hfa] 2 puff IH Q6H PRN 12/01/17 [History] Sertraline [Zoloft] 100 mg PO DAILY 12/01/17 [History] Tiotropium [Spiriva] 2 puff IH 0700 12/01/17 [History] Omeprazole [PriLOSEC] 20 mg PO DAILY #30 cap 01/14/18 [Rx] Mirtazapine [Remeron] 30 mg PO DAILY #30 tablet 01/25/18 [Rx] Sucralfate [Carafate] 1 gm PO QIDAC #1 bottle 02/09/18 [Rx] Ondansetron [Zofran ODT] 8 mg SL Q8H PRN #30 tab 02/17/18 [Rx] MORPHINE SUL Oral CONC [Roxanol Oral Conc] 10 mg PO Q3H PRN 7 Days #30 ml [Rx] Calcium Carbonate 650 mg PO DAILY 03/08/18 [History] Cholecalciferol (D-3) [Vitamin D] 1,000 unit PO DAILY 03/08/18 [History] Clopidogrel [Plavix] 75 mg PO DAILY 03/08/18 [History] LevETIRAcetam [Roweepra] 500 mg PO BID 03/08/18 [History] Loratadine [Allergy Relief] 10 mg PO DAILY 03/08/18 [History] Promethazine [Phenergan] 25 mg PO Q6HR PRN 03/08/18 [History] Multivitamin Liquid 15 ml PO DAILY 04/06/18 [History] traZODone [TraZODone] 50 mg PO HS PRN 04/06/18 [History] Oxycodone HCl [OxyCODONE Oral Soln] 5 - 10 mg PO Q4-6H PRN 8 Days #500 mls 05/10/18 [Rx] Pantoprazole Sodium [Protonix] 40 mg PO DAILY #30 norakt 05/10/18 [Rx] Allergy/AdvReac Type Severity Reaction Status Date / Time aspirin [ASA] Allergy Swelling Verified 04/06/18 11:12 of Lip/Tongue/Throat codeine Allergy Swelling Verified 04/06/18 11:12 of Lip/Tongue/Throat Penicillins [PCN] Allergy Hives Verified 04/06/18 11:12 All Systems PM: A 10-system review of systems was performed and is negative for pertinent findings except as documented above in the HPI. - Constitutional Vitals: Temp Pulse Resp BP Pulse Ox 98.0 F 103 18 104/73 92 05/24/18 04:19 05/24/18 04:19 05/24/18 05:08 05/24/18 04:19 05/24/18 05:08 General appearance: Present: cooperative, A&O X 3, pleasant, no acute distress, answers questions appropriately Exam: As above - Head Head exam: Present: normal inspection - Eye Eye exam: Present: EOMI, normal appearance - Respiratory Respiratory exam: Present: decreased breath sounds, respiratory distress, wheezes. Absent: chest wall tenderness Additional comments: Decreased breath sounds throughout lung garcia, with wheezing. - Cardiovascular Cardiovascular exam: Present: RRR. Absent: diastolic murmur, systolic murmur - GI/Abdominal GI/Abdominal exam: Present: normal bowel sounds, soft. Absent: tenderness Additional comments: G-tube in place, no erythema noted - Extremities Exam Extremities exam: Present: warm, radial pulses palpable and symmetrical. Absent: calf tenderness, pedal edema, tenderness - Neurological Exam Neurological exam: Present: no focal deficits, strengths equal and symetr throughout. Absent: motor sensory deficit, facial droop, speech deficit - Skin Skin exam: Present: dry, normal color, warm Internal Med - H&P Results - Labs CBC & Chem 7: 05/24/18 05:05 Labs: BMP 05/24/18 05:05 Sodium 134 L Potassium 3.7 Chloride 99 Carbon Dioxide 28 BUN 25 H Creatinine 0.59 L Glucose 156 H Calcium 8.1 L Liver Function 05/24/18 Range/Units 05:05 Total Bilirubin 0.3 (0.3-1.0) mg/dL AST 28 (13-39) Units/L ALT 13 (7-52) Units/L Alkaline Phosphatase 81 (34-104) Units/L Albumin 2.8 L (3.5-5.7) g/dL - Assessment and plan (1) COPD exacerbation Current Visit: Yes Status: Acute Assessment and plan: Patient has significant history of smoking, as well as severe emphysema with fibrosis of the lungs on CT. He has required supplemental oxygen, as well as BiPAP to maintain saturation greater than 90%. Continue oxygen supplementation Prednisone 40 mg crushed through G-tube Continue azithromycin and ceftriaxone Continue breathing treatments BiPAP if needed, patient currently stable on nasal cannula (2) Acute and chronic respiratory failure with hypoxia Current Visit: Yes Status: Acute Assessment and plan: As above, likely secondary to COPD exacerbation. Patient has a known history of severe emphysema, and stage III squamous cell lung cancer. (3) Elevated brain natriuretic peptide (BNP) level Current Visit: Yes Status: Acute Assessment and plan: Patient's BNP from [facility] apparently was greater than 17,000. He does not have evidence of CHF on imaging however. We will repeat this test now. Follow-up results of repeat BNP (4) Elevated troponin Current Visit: Yes Status: Acute Assessment and plan: Patient's troponin at [facility] was slightly elevated at 0.05 and 0.06. Normal values according to their lab is less than 0.056. EKG showed nonspecific T-wave changes, no ischemic changes noted. Continue to trend troponins media monitor (5) Heartburn Current Visit: Yes Status: Acute Assessment and plan: Patient has been dealing with heartburn, and has been on Protonix via his gastric tube. Continue Prevacid via G-tube twice a day (6) Hypokalemia Current Visit: No Status: Resolved Assessment and plan: Initial potassium at [facility] 2.8, improved to 3.7 on repeat labs here at [facility]. Continue to monitor (7) Adenocarcinoma of left lung, stage 3 Current Visit: No Status: Chronic Assessment and plan: Treatment as per oncology, consider oncology consult (8) Lactic acidosis Current Visit: Yes Status: Acute Assessment and plan: Likely secondary to hypoxia, patient received 2 L of IV fluids at the [facility] ER. Trending down, will repeat lab here at [facility] in the morning. Follow-up repeat lactic acid level (9) Dysphagia Current Visit: No Status: Acute Assessment and plan: Secondary to radiation therapy, patient had G-tube placed a few months ago. Qualifiers: Dysphagia type: unspecified Qualified Code(s): R13.10 - Dysphagia, unspecified (10) DVT prophylaxis Current Visit: No Status: Acute Assessment and plan: Subcutaneous heparin - Time Spent With Patient Total time spent is greater than 50% in coordination of care (as documented) at patient's floor/unit and/or counseling patient: Greater than 35 minutes
[2018-05-24 07:08] LABS: Troponin I 0.03 ng/mL (< 0.04)
[2018-05-24] MEDS ORDERED: predniSONE 20 MG TABLET PO SCH (09:00)
[2018-05-24] MEDS: cefTRIAXone 1,000 MG in Water for inj. (sterile) 20 ML 10 ML IVP SCH (09:14)
[2018-05-24] MEDS ORDERED: Ondansetron ODT 4 MG TAB.RAPDIS SL PRN (16:42)
[2018-05-24] MEDS: *HR* Heparin 5,000 UNIT/ML VIAL SQ SCH (16:57)
[2018-05-24 17:12] LABS: ABG Base Excess 7 mEq/L (-2 to 3); ABG HCO3 30 mEq/L (21-27); ABG Oxygen Saturation 93 % (95-98); ABG PCO2 34 mmHg (35-45); ABG PH 7.55 pH Units (7.32-7.45); ABG PO2 58 mmHg (85-104); ABG TCO2 31 mEq/L (20-26)
--- NOTE | 2018-05-24 18:16 | Event Note ---
Date of Encounter: 05/24/18 Time of Encounter: 18:13 Pt requiring 12L high flow oxygen. Will get STAT ABG. States he wants to hold off on intubation for now, yet he wants o remain a FULL CODE. Consulting pulmonology to see. Will place on BiPAP for now and monitor respiratory status.
[2018-05-24] MEDS: levETIRAcetam 250 MG TABLET PO SCH (21:13)
[2018-05-25] MEDS ORDERED: Nitroglycerin 0.4 MG TAB.SUBL SL PRN (00:50)
[2018-05-25] MEDS ORDERED: Nitroglycerin 0.4 MG TAB.SUBL SL ONE (00:53)
[2018-05-25] MEDS ORDERED: 0.9 % Sodium Chloride 500 ML IVC ONE (01:09)
[2018-05-25] MEDS: *HR* LORazepam 2 MG/ML VIAL IVP PRN (01:49)
[2018-05-25] MEDS: Ipratropium/Albuterol Neb 3 ML IH SCH ×3 (04:10→11:28)
[2018-05-25 06:22] LABS: Basophils % 0.2 %; Eosinophils % 0.2 %; Hematocrit 28.4 % (37.5-50.1); Immature Granulocytes % 0.3 % (0-4); Lymphocytes # 0.5 K/mcL (0.6-4.6); Lymphocytes % 8.5 %; Mean Corpuscular HGB Conc 31.7 g/dL (31.6-35.5); Mean Corpuscular Hemoglobin 30.8 pg (28.0-33.3); Mean Corpuscular Volume 97.3 fL (83.0-100.0); Mean Platelet Volume 9.2 fL (9.4-12.4); Monocytes % 15.4 %; Neutrophils # 4.8 K/mcL (1.6-8.9); Platelet Count 338 K/mcL (140-400); Red Blood Count 2.92 M/mcL (4.19-5.50); Red Cell Distribution Width 17.6 % (11.5-14.5); Segmented Neutrophils % 75.4 %
--- NOTE | 2018-05-25 06:45 | Pulmonology Consult Note ---
Date of Encounter: 05/25/18 Time of Encounter: 06:45 Assessment and Plan (1) Acute and chronic respiratory failure with hypoxia Current Visit: Yes Status: Acute Differential diagnosis here includes COPD exacerbation with possibility of radiation-induced pneumonitis. Which I suspect is very high in the differential is no clear evidence of pneumonia based upon the CTA report but I have requested that the images be uploaded into our system from [employer] so that I can personally reviewed them. Patient currently tolerating BiPAP but this appears to be much more of a pure hypoxemic failure and so high flow nasal cannula which could be delivered as much as 40-50 L at a time to the [facility] system could be a good therapeutic modality here if traditional high flow nasal cannula would not suffice. I have increased the dose of steroids to IV formulation which I would recommend over at least the next 48 hours and he may need a long taper if this is consi stent with radiation pneumonitis I agree with continuous supplemental oxygen monitoring patient is stable at this timeframe but has high risk of further decompensation may need to be moved to the stepdown unit or even if he continues to have increasing O2 requirements (2) Elevated brain natriuretic peptide (BNP) level Current Visit: Yes Status: Acute There is high possibility of elevated left ventricular end-diastolic filling pressures or RV dysfunction from acute hypoxemia which could lead to both increase and BNP and troponin I have requested an echocardiogram for further evaluation of underlying cardiac function and would not consider cardiology consult based upon the results In general patient would benefit from a pulmonary standpoint from gentle diuresis (0.5L-1L negative over next 24 hours) as tolerated by blood pressure (3) Elevated troponin Current Visit: Yes Status: Acute Suspected type II CT (demand ischemia) echocardiogram has been ordered but consider cardiology consultation (4) COPD exacerbation Current Visit: Yes Status: Acute Agree with scheduled bronchodilators and IV steroids at the time he is also being covered with antimicrobials which is appropriate I have sent off a respiratory infection panel as well recommend sputum and blood cultures if not already obtained (5) Lung cancer Current Visit: No Status: Chronic Patient is being treated actively with chemoradiation at [place] [facility] Recommend inpatient chemical DVT prophylaxis unless contraindication arises Thank you for this consultation pulmonary will continue to follow Qualifiers: Laterality: left Lung location: upper lobe of lung Qualified Code(s): C34.12 - Malignant neoplasm of upper lobe, left bronchus or lung History of Present Illness Consult date: 05/25/18 Requesting physician: Maye Ching Reason for consult: hypoxemia Chief complaint: Difficulty in Breathing History of present illness: Mr Dumont is a pleasant gentleman who unfortunately carries a diagnosis of Stage IIIa poorly differentiated adenocarcinoma undergoing concurrent chemoradiotherapy s/p PEG placement recently for severe erosive esophagitis. He also suffers from COPD and Chronic Respiratory failure on 2LNC at all times. He initially presented to [facility] for worsening dyspnea. Workup thus far i s included CTA at the outside hospital which per the report was negative for filling defect or clear new infiltrate but there is some concern of increased pulmonary vascular congestion and small bilateral pleural effusions and severe emphysematous changes in the lung apices with fibrotic changes in the bases. He has been requiring increased O2 support as much as 12L Hi Flow Nasal Cannula and currently is on BiPAP Pulmonary was consulted for further evaluation. Patient had extensive smoking history starting in his late adolescence and smoking about a half a pack to a pack a day quitting 5 years ago. 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 Says over the last month he has had increasing shortness of breath which 2 days prior to admission and had gotten worse including some yellowish phlegm that he was coughing up he denies any hemoptysis he denies any sick contacts. Past Med Surg Social Fam HX - Past Medical History Medical history: cancer, COPD Additional medical history: htn. copd. lung nodule Psychiatric history: anxiety, depression, PTSD - Past Surgical History Surgical History: other Additional surgical history: right CTR. left arm ORIF. PEG placement - Social History Smoking Status: Former smoker Packs per day: 1 pack every 3 days, also used chew tobacco Smokeless Tobacco Status: Yes Alcohol use: none Drug use: none - Family History Mother Age: 69 Living Status: Hx Family Cardiac Disorders: Yes Hx Family Respiratory Disorders: Yes (TB+) Hx Family Cancer: Yes Hx Family GI Disorders: Yes Father History Unknown: Yes Age: 73 Medications and Allergies Albuterol Sulfate [Proventil Hfa] 2 puff IH Q6H PRN 12/01/17 [History] Sucralfate [Carafate] 1 gm PO QIDAC #1 bottle 02/09/18 [Rx] Ondansetron [Zofran ODT] 8 mg SL Q8H PRN #30 tab 02/17/18 [Rx] Calcium Carbonate 650 mg PO DAILY 03/08/18 [History] Cholecalciferol (D-3) [Vitamin D] 1,000 unit PO DAILY 03/08/18 [History] Clopidogrel [Plavix] 75 mg PO DAILY 03/08/18 [History] Promethazine [Phenergan] 25 mg PO Q6HR PRN 03/08/18 [History] Oxycodone HCl [OxyCODONE Oral Soln] 5 - 10 mg PO Q4-6H PRN 8 Days #500 mls 05/10/18 [Rx] Pantoprazole Sodium [Protonix] 40 mg PO DAILY #30 granpkt.dr 05/10/18 [Rx] Atorvastatin [Lipitor] 20 mg PO HS 05/24/18 [History] LevETIRAcetam [Keppra] 500 mg PO BID 05/24/18 [History] Mirtazapine [Remeron] 30 mg PO DAILY 05/24/18 [History] Ranitidine Oral Soln [Zantac] 75 mg PO DAILY 05/24/18 [History] Sertraline HCl [Zoloft] 100 mg PO DAILY 05/24/18 [History] Tiotropium [place] [Spiriva Respimat] 2 puff IH DAILY 05/24/18 [History] Allergy/AdvReac Type Severity Reaction Status Date / Time aspirin [ASA] Allergy Swelling Verified 04/06/18 11:12 of Lip/Tongue/Throat codeine Allergy Swelling Verified 04/06/18 11:12 of Lip/Tongue/Throat Penicillins [PCN] Allergy Hives Verified 04/06/18 11:12 All Systems: The remainder of the systems were reviewed and are negative Physical Examination Vital Signs: Vital Signs, Last 4 Hours Temp Pulse Resp BP Pulse Ox 05/25/18 04:44 97.3 F L 111 26 93/52 93 05/25/18 04:12 38 93 General appearance: no acute distress Eyes: nonicteric Neck: supple, no lymphadenopathy Effort: mildly labored Auscultation: left: wheezes (Faint expiratory wheeze on), rales (bibasilar ), bilateral: diminished breath sounds Cardiovascular: other (A rapid rate regular rhythm) Gastrointestinal: normoactive bowel sounds, soft, non-tender, other (PEG tube site noted without any surrounding erythema) Integumentary: normal Extremities: no cyanosis, no edema, no clubbing Musculoskeletal: no deformities normal mental status, non-focal exam mood appropriate Results - Laboratory Findings CBC and BMP: 05/25/18 05:45 05/25/18 05:45 ABG ABG pH 7.55 pH Units (7.32-7.45) H 05/24/18 17:03 ABG pCO2 34 mmHg (35-45) L 05/24/18 17:03 ABG pO2 58 mmHg (85-104) L 05/24/18 17:03 ABG O2 Saturation 93 % (95-98) L 05/24/18 17:03 Abnormal lab findings: Abnormal lab results RBC 2.92 M/mcL (4.19-5.50) L 05/25/18 05:45 Hgb 9.0 g/dL (12.9-16.9) L 05/25/18 05:45 Hct 28.4 % (37.5-50.1) L 05/25/18 05:45 RDW 17.6 % (11.5-14.5) H 05/25/18 05:45 MPV 9.2 fL (9.4-12.4) L 05/25/18 05:45 Lymphocytes # 0.5 K/mcL (0.6-4.6) L 05/25/18 05:45 Large Platelets Present (Not Present) A 05/24/18 05:05 Anisocytosis 1+ (Not Present) A 05/24/18 05:05 Macrocytosis Present (Not Present) A 05/24/18 05:05 ABG pH 7.55 pH Units (7.32-7.45) H 05/24/18 17:03 ABG pCO2 34 mmHg (35-45) L 05/24/18 17:03 ABG pO2 58 mmHg (85-104) L 05/24/18 17:03 ABG HCO3 30 mEq/L (21-27) H 05/24/18 17:03 ABG Total CO2 31 mEq/L (20-26) H 05/24/18 17:03 ABG O2 Saturation 93 % (95-98) L 05/24/18 17:03 ABG Base Excess 7 mEq/L (-2 to 3) H 05/24/18 17:03 Sodium 134 mEq/L (136-145) L 05/24/18 05:05 BUN 25 mg/dL (8-23) H 05/24/18 05:05 Creatinine 0.59 mg/dL (0.70-1.30) L 05/24/18 05:05 BUN/Creatinine Ratio 42 (6-26) H 05/24/18 05:05 Glucose 156 mg/dL (70-105) H 05/24/18 05:05 Calcium 8.1 mg/dL (8.6-10.3) L 05/24/18 05:05 Troponin I 0.04 ng/mL (< 0.04) H* 05/25/18 00:57 B-Natriuretic Peptide 749 pg/mL (Less than 100) H 05/24/18 05:05 Serum Total Protein 6.0 g/dL (6.4-8.9) L 05/24/18 05:05 Albumin 2.8 g/dL (3.5-5.7) L 05/24/18 05:05 Albumin/Globulin Ratio 0.9 (1.1-2.2) L 05/24/18 05:05 - Diagnostic Findings Chest x-ray: report reviewed CT scan - chest: report reviewed - Clinical Findings Intake & Output: Intake & Output 05/24/18 05/24/18 05/25/18 15:59 23:59 07:59 Intake Total 540 / 540 Output Total 300 / 300 400 / 400 Balance -300 / -300 140 / 140 Weight 56.5 kg Consult Discharge Plan - Plan Referrals: NONE,PCP [Primary Care Provider] -
[2018-05-25] MEDS: *HR* Heparin 5,000 UNIT/ML VIAL SQ SCH ×2 (06:48→20:08)
[2018-05-25 07:20] LABS: BUN/Creatinine Ratio 41 (6-26); Blood Urea Nitrogen 25 mg/dL (8-23); Calcium 8.3 mg/dL (8.6-10.3); Carbon Dioxide 27 mEq/L (23-29); Chloride 104 mEq/L (98-107); Glucose 111 mg/dL (70-105); Osmolality,Calculated 295 (280-300); Potassium 2.7 mEq/L (3.5-5.1); Sodium 140 mEq/L (136-145); eGFR For Non-African Americans > 60 (> 60)
[2018-05-25] MEDS: cefTRIAXone 1,000 MG in Water for inj. (sterile) 20 ML 10 ML IVP SCH (08:53)
[2018-05-25] MEDS: Azithromycin 250 MG TABLET PO SCH (08:54)
[2018-05-25] MEDS: levETIRAcetam 250 MG TABLET PO SCH ×2 (08:54→20:08)
[2018-05-25] MEDS ORDERED: Mirtazapine 15 MG TABLET PO SCH (09:00)
[2018-05-25] MEDS ORDERED: NON-FORMULARY MEDICATION 1 EACH EACH (Pantoprazole Sodium [Protonix] 40 MG) PO SCH (09:00)
[2018-05-25 10:28] LABS: Adenovirus Not Detected (Not Detect); Coronavirus 229E Not Detected (Not Detect); Coronavirus HKU1 Not Detected (Not Detect); Coronavirus NL63 Not Detected (Not Detect); Coronavirus OC43 Not Detected (Not Detect); Human Metapneumovirus Not Detected (Not Detect); Human Rhinovirus/Enterovirus Not Detected (Not Detect); Influenza A Subtype 2009 H1 Not Detected (Not Detect); Influenza A Untypeable Not Detected (Not Detect)
[2018-05-25 10:29] LABS: Bordetella Pertussis Not Detected (Not Detect); Chlamydophila pneumoniae Not Detected (Not Detect); Influenza B Not Detected (Not Detect); Mycoplasma pneumoniae Not Detected (Not Detect); Parainfluenza Virus 1 Not Detected (Not Detect); Parainfluenza Virus 2 Not Detected (Not Detect); Parainfluenza Virus 3 Not Detected (Not Detect); Parainfluenza Virus 4 Not Detected (Not Detect); Respiratory Syncytial Virus Not Detected (Not Detect)
[2018-05-25] MEDS ORDERED: Levalbuterol Neb 1.25 MG/3 ML ONE (11:20)
[2018-05-25] MEDS: Levalbuterol Neb 1.25 MG/3 ML IH SCH ×3 (11:20→22:37)
[2018-05-25] MEDS ORDERED: Isovue-370 500 ML INFUS..BTL IV ONE (11:26)
[2018-05-25] MEDS: MethylPREDNISolone 40 MG/ML VIAL IVP SCH ×2 (11:30→19:53)
[2018-05-25] MEDS ORDERED: methylPREDNISolone 125 MG/2 ML VIAL IVP SCH (16:00)
--- NOTE | 2018-05-25 18:29 | Internal Med Progress Note ---
Hospitalist Progress Note - Encounter Date of Encounter: 05/25/18 Time of Encounter: 11:00 - Subjective Interval History: Patient this morning appeared to be in respiratory distress with tachypnea Patient was offered BiPAP during the day however experience worsening hypoxia and patient had to be placed back on BiPAP. Pulmonology following with recommendations to increased dose of steroids. Patient had elevated BNP on admission and echocardiogram pending - Exam Vitals: Temp Pulse Resp BP Pulse Ox 99.8 F H 120 41 116/78 90 05/25/18 16:16 05/25/18 16:16 05/25/18 17:40 05/25/18 16:16 05/25/18 17:40 Exam: Gen.: Nonacute distress, alert and oriented 3 ENT: Mucosal membranes moist Respiratory: Lungs are clear to auscultation bilaterally without any wheezing rhonchi or rales Cardiovascular: Normal S1 and S2 regular rate rhythm no murmurs rubs or gallops Abdomen: Soft, nontender and nondistended with positive bowel sounds Extremities: No lower extremity edema Skin: Normal color - Assessment and Plan (1) Acute and chronic respiratory failure with hypoxia Current Visit: Yes Status: Acute Assessment and Plan: Patient not able to be weaned off BiPAP today due to hypoxia. Pulmonology following with recommendations to increase steroids to IV Solu- Medrol. Will continue IV ceftriaxone and azithromycin for suspected pneumonia on CTA done at [facility] (2) COPD exacerbation Current Visit: Yes Status: Acute Assessment and Plan: Patient has been started on IV Solu-Medrol per pulmonology recommendations. Scheduled DuoNeb's has been discontinued and patient has been started on Xopenex (3) Elevated brain natriuretic peptide (BNP) level Current Visit: Yes Status: Acute Assessment and Plan: Patient with elevated BNP on admission; echocardiogram pending (4) Elevated troponin Current Visit: Yes Status: Acute Assessment and Plan: Suspect secondary to demand ischemia due to acute hypoxic respiratory failure above (5) Adenocarcinoma of left lung, stage 3 Current Visit: No Status: Chronic Assessment and Plan: Patient following with hematology oncology as outpatient. DVT Prophylaxis: Subcutaneous heparin - Time Spent with Patient Total time spent is greater than 50% in coordination of care (as documented) at patient's floor/unit and/or counseling patient: Internal Medicine: Result - Labs CBC & Chem 7: 05/25/18 05:45 05/25/18 05:45 Labs: Short CBC 10/23/18 Range/Units 05:45 WBC 6.4 (4.3-11.1) K/mcL Hgb 9.0 L (12.9-16.9) g/dL Hct 28.4 L (37.5-50.1) % Plt Count 338 (140-400) K/mcL Neutrophils # 4.8 (1.6-8.9) K/mcL BMP 05/25/18 05:45 Sodium 140 Potassium 2.7 L Chloride 104 Carbon Dioxide 27 BUN 25 H Creatinine 0.61 L Glucose 111 H Calcium 8.3 L Cardiac Enzymes 05/25/18 Range/Units 00:57 Troponin I 0.04 H* (< 0.04) ng/mL - ABG Interpretation ABG results: ABG ABG pH 7.55 pH Units (7.32-7.45) H 05/24/18 17:03 ABG pCO2 34 mmHg (35-45) L 05/24/18 17:03 ABG pO2 58 mmHg (85-104) L 05/24/18 17:03 ABG O2 Saturation 93 % (95-98) L 05/24/18 17:03 Consult Discharge Plan - Plan Referrals: NONE,PCP [Primary Care Provider] -
[2018-05-25] MEDS: Mirtazapine 15 MG TABLET PO SCH (20:07)
[2018-05-26] MEDS: MethylPREDNISolone 40 MG/ML VIAL IVP SCH ×3 (00:32→16:59)
[2018-05-26] MEDS: Levalbuterol Neb 1.25 MG/3 ML IH SCH ×4 (04:40→21:55)
[2018-05-26] MEDS: *HR* Heparin 5,000 UNIT/ML VIAL SQ SCH ×2 (05:29→18:56)
[2018-05-26 05:59] LABS: Hematocrit 31.5 % (37.5-50.1); Immature Granulocytes % 0.5 % (0-4); Lymphocytes # 0.4 K/mcL (0.6-4.6); Lymphocytes % 6.2 %; Mean Corpuscular HGB Conc 31.7 g/dL (31.6-35.5); Mean Corpuscular Hemoglobin 31.1 pg (28.0-33.3); Mean Corpuscular Volume 97.8 fL (83.0-100.0); Mean Platelet Volume 9.1 fL (9.4-12.4); Monocytes # 0.2 K/mcL (0.0-1.3); Monocytes % 3.4 %; Neutrophils # 5.3 K/mcL (1.6-8.9); Nucleated Red Blood Cells 0.3 /100 WBC (0); Platelet Count 347 K/mcL (140-400); Red Blood Count 3.22 M/mcL (4.19-5.50); Red Cell Distribution Width 17.5 % (11.5-14.5); Segmented Neutrophils % 89.9 %
[2018-05-26 06:25] LABS: BUN/Creatinine Ratio 46 (6-26); Blood Urea Nitrogen 26 mg/dL (8-23); Calcium 8.5 mg/dL (8.6-10.3); Carbon Dioxide 26 mEq/L (23-29); Chloride 104 mEq/L (98-107); Glucose 167 mg/dL (70-105); Osmolality,Calculated 295 (280-300); Sodium 138 mEq/L (136-145); eGFR For Non-African Americans > 60 (> 60)
--- NOTE | 2018-05-26 07:08 | Pulmonology Progress Note ---
Date of Encounter: 05/26/18 Time of Encounter: 07:08 Assessment and Plan (1) Acute and chronic respiratory failure with hypoxia Current Visit: Yes Status: Acute I suspect this is radiation pneumonitis (radiation-induced lung injury) based upon CT scan findings and I suspect a complication from underlying hydrostatic pulmonary edema from cardiogenic cause. Would continue to treat with BiPAP and high flow oxygen to keep saturation greater than 88% Given high oxygen requirements and persistent tachycardia patient would likely be better served with closer monitoring in a stepdown environment so that we can titrate oxygen accordingly and monitor diuresis and response to therapy (2) Elevated brain natriuretic peptide (BNP) level Current Visit: Yes Status: Acute ECHO pending BNP elevated and clear radiographic evidence of volume overload When initiation of diuretic for Gold at -1-2 L of the next 24 hours of strict monitoring of I's and O's and the monitoring of daily renal function per primary service (3) COPD exacerbation Current Visit: Yes Status: Acute Continue schedule bronchodilators IV steroids and oxygen He is also on antimicrobials with no clear causative organism as of yet respiratory infection panel was negative would probably treat for 5-7 days for possible infectious etiology Pulmonary will continue to follow I did discuss my impression and recommendations directly with the primary hospitalist service (4) Lung cancer Current Visit: No Status: Chronic He is status post definitive chemoradiation Qualifiers: Laterality: left Lung location: upper lobe of lung Qualified Code(s): C34.12 - Malignant neoplasm of upper lobe, left bronchus or lung Subjective Principal diagnosis: Respiratory Failure Interval history: Remains on high amont of Fio2 support his been transitioning between Just[employer] high flow system and BiPAP it appears that the positive pressure is helpful for his increased work of breathing. His requiring between 60-75% FiO2. Says he feels about the same as yesterday. He remains afebrile. Blood pressure is much more within the normal range now. He remains tachycardic. Apparently the echocardiogram has been completed but not read Objective PUL Vital signs: Last Vital Signs Temp 98.9 F 05/26/18 05:22 Pulse 110 05/26/18 05:22 Resp 30 05/26/18 05:22 BP 132/72 05/26/18 05:22 Pulse Ox 95 05/26/18 05:22 General appearance: no acute distress Eyes: nonicteric Neck: supple Effort: very labored Auscultation: bilateral: rales (Scattered throughout the majority of lung garcia) Cardiovascular: other (Rapid rate regular rhythm) Gastrointestinal: normoactive bowel sounds, soft, non-tender Integumentary: normal Extremities: no edema normal mental status, non-focal exam mood appropriate Results - Laboratory Findings CBC and BMP: 05/26/18 05:40 05/26/18 05:40 ABG ABG pH 7.55 pH Units (7.32-7.45) H 05/24/18 17:03 ABG pCO2 34 mmHg (35-45) L 05/24/18 17:03 ABG pO2 58 mmHg (85-104) L 05/24/18 17:03 ABG O2 Saturation 93 % (95-98) L 05/24/18 17:03 Abnormal lab findings: Abnormal lab results RBC 3.22 M/mcL (4.19-5.50) L 05/26/18 05:40 Hgb 10.0 g/dL (12.9-16.9) L 05/26/18 05:40 Hct 31.5 % (37.5-50.1) L 05/26/18 05:40 RDW 17.5 % (11.5-14.5) H 05/26/18 05:40 MPV 9.1 fL (9.4-12.4) L 05/26/18 05:40 Lymphocytes # 0.4 K/mcL (0.6-4.6) L 05/26/18 05:40 Nucleated RBCs/100 WBC 0.3 /100 WBC (0) H 05/26/18 05:40 Large Platelets Present (Not Present) A 05/24/18 05:05 Anisocytosis 1+ (Not Present) A 05/24/18 05:05 Macrocytosis Present (Not Present) A 05/24/18 05:05 ABG pH 7.55 pH Units (7.32-7.45) H 05/24/18 17:03 ABG pCO2 34 mmHg (35-45) L 05/24/18 17:03 ABG pO2 58 mmHg (85-104) L 05/24/18 17:03 ABG HCO3 30 mEq/L (21-27) H 05/24/18 17:03 ABG Total CO2 31 mEq/L (20-26) H 05/24/18 17:03 ABG O2 Saturation 93 % (95-98) L 05/24/18 17:03 ABG Base Excess 7 mEq/L (-2 to 3) H 05/24/18 17:03 BUN 26 mg/dL (8-23) H 05/26/18 05:40 Creatinine 0.56 mg/dL (0.70-1.30) L 05/26/18 05:40 BUN/Creatinine Ratio 46 (6-26) H 05/26/18 05:40 Glucose 167 mg/dL (70-105) H 05/26/18 05:40 Calcium 8.5 mg/dL (8.6-10.3) L 05/26/18 05:40 Troponin I 0.04 ng/mL (< 0.04) H* 05/25/18 00:57 B-Natriuretic Peptide 749 pg/mL (Less than 100) H 05/24/18 05:05 Serum Total Protein 6.0 g/dL (6.4-8.9) L 05/24/18 05:05 Albumin 2.8 g/dL (3.5-5.7) L 05/24/18 05:05 Albumin/Globulin Ratio 0.9 (1.1-2.2) L 05/24/18 05:05 - Diagnostic Findings CT scan - chest: report reviewed, image reviewed - Clinical Findings Intake & Output: Intake & Output 05/25/18 05/25/18 05/26/18 15:59 23:59 07:59 Intake Total 200 / 200 400 / 400 Balance 200 / 200 400 / 400 Weight 56.1 kg Consult Discharge Plan - Plan Referrals: NONE,PCP [Primary Care Provider] -
--- NOTE | 2018-05-26 07:55 | Internal Med Progress Note ---
Hospitalist Progress Note - Encounter Date of Encounter: 05/26/18 Time of Encounter: 11:00 - Subjective Interval History: Patient still requiring high amounts of O2 supplementation with BiPAP/high flow oxygen; baseline 2 L of O2 nasal cannula Will continue IV steroids and initiate aggressive IV diuresis; echocardiogram pending Will transfer to progressive unit for closer monitoring - Exam Vitals: Temp Pulse Resp BP Pulse Ox 97.8 F 112 31 118/79 93 05/26/18 07:51 05/26/18 07:51 05/26/18 07:51 05/26/18 07:51 05/26/18 07:51 Exam: Gen.: Nonacute distress, alert and oriented 3 ENT: Mucosal membranes moist Respiratory: Bilateral crackles Cardiovascular: Normal S1 and S2 regular rate rhythm no murmurs rubs or gallops Abdomen: Soft, nontender and nondistended with positive bowel sounds Extremities: No lower extremity edema Skin: Normal color - Assessment and Plan (1) Acute and chronic respiratory failure with hypoxia Current Visit: Yes Status: Acute Assessment and Plan: Patient continues to require high amounts of O2 supplementation with BiPAP/high flow oxygen Pulmonology following with recommendations to continued IV Solu-Medrol and to initiate aggressive IV diuresis Will continue IV ceftriaxone and azithromycin for suspected pneumonia on CTA done at [facility]; repeat chest x-ray. (2) Elevated brain natriuretic peptide (BNP) level Current Visit: Yes Status: Acute Assessment and Plan: Patient with elevated BNP of 749 on admission; echocardiogram pending Will initiate IV diuresis as above (3) Elevated troponin Current Visit: Yes Status: Acute Assessment and Plan: Suspect secondary to demand ischemia due to acute hypoxic respiratory failure above (4) COPD exacerbation Current Visit: Yes Status: Acute Assessment and Plan: Continue IV Solu-Medrol in addition to Xopenex per pulmonology recommendations. Will try to wean supplemental O2 as tolerated (5) Adenocarcinoma of left lung, stage 3 Current Visit: No Status: Chronic Assessment and Plan: Patient following with hematology oncology as outpatient. (6) Mood disorder Current Visit: Yes Status: Acute Assessment and Plan: Continue home medications (7) Hyperlipidemia Current Visit: Yes Status: Acute Assessment and Plan: Continue statin DVT Prophylaxis: Subcutaneous heparin - Time Spent with Patient Total time spent is greater than 50% in coordination of care (as documented) at patient's floor/unit and/or counseling patient: Internal Medicine: Result - Labs CBC & Chem 7: 05/26/18 05:40 05/26/18 05:40 Labs: Short CBC 05/26/18 Range/Units 05:40 WBC 5.8 (4.3-11.1) K/mcL Hgb 10.0 L (12.9-16.9) g/dL Hct 31.5 L (37.5-50.1) % Plt Count 347 (140-400) K/mcL Neutrophils # 5.3 (1.6-8.9) K/mcL BMP 05/26/18 05:40 Sodium 138 Potassium 4.0 D Chloride 104 Carbon Dioxide 26 BUN 26 H Creatinine 0.56 L Glucose 167 H Calcium 8.5 L - ABG Interpretation ABG results: ABG ABG pH 7.55 pH Units (7.32-7.45) H 05/24/18 17:03 ABG pCO2 34 mmHg (35-45) L 05/24/18 17:03 ABG pO2 58 mmHg (85-104) L 05/24/18 17:03 ABG O2 Saturation 93 % (95-98) L 05/24/18 17:03 Consult Discharge Plan - Plan Referrals: NONE,PCP [Primary Care Provider] -
[2018-05-26] MEDS ORDERED: Furosemide 40 MG/4 ML VIAL IVP SCH (09:00)
[2018-05-26] MEDS: levETIRAcetam 250 MG TABLET PO SCH ×2 (10:08→21:03)
[2018-05-26] MEDS: Azithromycin 250 MG TABLET PO SCH (10:09)
[2018-05-26] MEDS: cefTRIAXone 1,000 MG in Water for inj. (sterile) 20 ML 10 ML IVP SCH (10:09)
[2018-05-26] MEDS: Furosemide 40 MG/4 ML VIAL IVP SCH ×2 (10:14→16:59)
[2018-05-26] MEDS: *HR* LORazepam 2 MG/ML VIAL IVP PRN (14:55)
[2018-05-26] MEDS: Mirtazapine 15 MG TABLET PO SCH (21:03)
[2018-05-27] MEDS: MethylPREDNISolone 40 MG/ML VIAL IVP SCH ×3 (01:01→15:47)
[2018-05-27] MEDS: Levalbuterol Neb 1.25 MG/3 ML IH SCH ×4 (03:51→21:37)
[2018-05-27 04:19] LABS: Hematocrit 33.1 % (37.5-50.1); Hemoglobin 10.4 g/dL (12.9-16.9); Immature Granulocytes % 0.5 % (0-4); Lymphocytes # 0.4 K/mcL (0.6-4.6); Lymphocytes % 4.8 %; Mean Corpuscular HGB Conc 31.4 g/dL (31.6-35.5); Mean Corpuscular Hemoglobin 31.1 pg (28.0-33.3); Mean Corpuscular Volume 99.1 fL (83.0-100.0); Mean Platelet Volume 9.6 fL (9.4-12.4); Monocytes # 0.5 K/mcL (0.0-1.3); Monocytes % 6.3 %; Neutrophils # 7.1 K/mcL (1.6-8.9); Platelet Count 413 K/mcL (140-400); Red Blood Count 3.34 M/mcL (4.19-5.50); Red Cell Distribution Width 17.5 % (11.5-14.5); Segmented Neutrophils % 88.4 %
[2018-05-27 04:37] LABS: BUN/Creatinine Ratio 54 (6-26); Blood Urea Nitrogen 37 mg/dL (8-23); Calcium 8.7 mg/dL (8.6-10.3); Carbon Dioxide 31 mEq/L (23-29); Chloride 102 mEq/L (98-107); Glucose 148 mg/dL (70-105); Osmolality,Calculated 301 (280-300); Potassium 3.5 mEq/L (3.5-5.1); Sodium 140 mEq/L (136-145); eGFR For Non-African Americans > 60 (> 60)
[2018-05-27] MEDS: *HR* Heparin 5,000 UNIT/ML VIAL SQ SCH ×2 (06:17→18:01)
--- NOTE | 2018-05-27 06:57 | Pulmonology Progress Note ---
Date of Encounter: 05/27/18 Time of Encounter: 06:57 Assessment and Plan (1) Acute and chronic respiratory failure with hypoxia Current Visit: Yes Status: Acute This is multifactorial and suspected initiated by radiation-induced lung injury complicated by severe underlying emphysema and chronic pulmonary hypertension He remains on high flow oxygen with Alfreda keep saturation greater than 88% He will and if it from continued diuresis as tolerated by blood pressure Continue IV steroids (2) Pulmonary hypertension Current Visit: Yes Status: Acute I reviewed the report/formal interpretation of the echocardiogram there is evidence of cor pulmonale which is likely secondary to his hypoxemia. I believe that he would benefit from continued diuresis but this will have to be monitored very closely for any evidence of hypotension CTA performed at the outside hospital was negative for pulmonary embolus (3) COPD exacerbation Current Visit: Yes Status: Acute Continue schedule bronchodilators IV steroids and oxygen He is also on antimicrobials with no clear causative organism as of yet respiratory infection panel was negative would treat for 5-7 days for possible infectious etiology (4) Lung cancer Current Visit: No Status: Chronic He is status post definitive chemoradiation Qualifiers: Laterality: left Lung location: upper lobe of lung Qualified Code(s): C34.12 - Malignant neoplasm of upper lobe, left bronchus or lung (5) Goals of care, counseling/discussion Current Visit: Yes Status: Acute I discussed with the patient that he remains on a high flow oxygen and saturation is borderline at this time there is a very high risk that he could deteriorate further despite our interventions. He explained to me that he would not want to have intubation if things worsen but he wants aggressive care up until that point I recommend formal palliative care consultation to further address goals of care with this patient Subjective Principal diagnosis: Respiratory Failure Interval history: Remains on high amont of Fio2 support his been transitioning between [employer] high flow system and BiPAP this morning when I examined him he was on 80% FiO2 through about 55 L bleed. He says he actually feeling better than the previous day. Denies any cough or hemoptysis. Blood pressure stable Objective PUL Vital signs: Last Vital Signs Temp 97.9 F 05/27/18 03:50 Pulse 103 05/27/18 03:50 Resp 20 05/27/18 03:51 BP 135/98 05/27/18 03:50 Pulse Ox 93 05/27/18 03:51 General appearance: no acute distress Eyes: nonicteric ENT: oropharynx moist Neck: supple Effort: normal Auscultation: bilateral: rales Cardiovascular: regular rate and rhythm Gastrointestinal: normoactive bowel sounds, soft, non-tender Extremities: no cyanosis, no edema, no clubbing Musculoskeletal: no deformities normal mental status, non-focal exam mood appropriate Results - Laboratory Findings CBC and BMP: 05/27/18 03:35 05/27/18 03:35 ABG ABG pH 7.55 pH Units (7.32-7.45) H 05/24/18 17:03 ABG pCO2 34 mmHg (35-45) L 05/24/18 17:03 ABG pO2 58 mmHg (85-104) L 05/24/18 17:03 ABG O2 Saturation 93 % (95-98) L 05/24/18 17:03 Abnormal lab findings: Abnormal lab results RBC 3.34 M/mcL (4.19-5.50) L 05/27/18 03:35 Hgb 10.4 g/dL (12.9-16.9) L 05/27/18 03:35 Hct 33.1 % (37.5-50.1) L 05/27/18 03:35 MCHC 31.4 g/dL (31.6-35.5) L 05/27/18 03:35 RDW 17.5 % (11.5-14.5) H 05/27/18 03:35 Plt Count 413 K/mcL (140-400) H 05/27/18 03:35 Lymphocytes # 0.4 K/mcL (0.6-4.6) L 05/27/18 03:35 Nucleated RBCs/100 WBC 0.3 /100 WBC (0) H 05/26/18 05:40 Large Platelets Present (Not Present) A 05/24/18 05:05 Anisocytosis 1+ (Not Present) A 05/24/18 05:05 Macrocytosis Present (Not Present) A 05/24/18 05:05 ABG pH 7.55 pH Units (7.32-7.45) H 05/24/18 17:03 ABG pCO2 34 mmHg (35-45) L 05/24/18 17:03 ABG pO2 58 mmHg (85-104) L 05/24/18 17:03 ABG HCO3 30 mEq/L (21-27) H 05/24/18 17:03 ABG Total CO2 31 mEq/L (20-26) H 05/24/18 17:03 ABG O2 Saturation 93 % (95-98) L 05/24/18 17:03 ABG Base Excess 7 mEq/L (-2 to 3) H 05/24/18 17:03 Carbon Dioxide 31 mEq/L (23-29) H 05/27/18 03:35 BUN 37 mg/dL (8-23) H 05/27/18 03:35 Creatinine 0.69 mg/dL (0.70-1.30) L 05/27/18 03:35 BUN/Creatinine Ratio 54 (6-26) H 05/27/18 03:35 Glucose 148 mg/dL (70-105) H 05/27/18 03:35 Calculated Osmolality 301 (280-300) H 05/27/18 03:35 Troponin I 0.04 ng/mL (< 0.04) H* 05/25/18 00:57 B-Natriuretic Peptide 749 pg/mL (Less than 100) H 05/24/18 05:05 Serum Total Protein 6.0 g/dL (6.4-8.9) L 05/24/18 05:05 Albumin 2.8 g/dL (3.5-5.7) L 05/24/18 05:05 Albumin/Globulin Ratio 0.9 (1.1-2.2) L 05/24/18 05:05 - Diagnostic Findings Additional studies: Echocardiogram - Clinical Findings Intake & Output: Intake & Output 05/26/18 05/26/18 05/27/18 15:59 23:59 07:59 Intake Total 477 / 477 60 / 60 Output Total 950 / 950 695 / 695 Balance -473 / -473 -635 / -635 Weight 55.9 kg Consult Discharge Plan - Plan Referrals: NONE,PCP [Primary Care Provider] -
[2018-05-27] MEDS: cefTRIAXone 1,000 MG in Water for inj. (sterile) 20 ML 10 ML IVP SCH (07:41)
[2018-05-27] MEDS: Azithromycin 250 MG TABLET PO SCH (07:42)
[2018-05-27] MEDS: Furosemide 40 MG/4 ML VIAL IVP SCH ×2 (07:42→15:47)
[2018-05-27] MEDS: levETIRAcetam 250 MG TABLET PO SCH ×2 (07:42→20:49)
--- NOTE | 2018-05-27 10:56 | Internal Med Progress Note ---
Hospitalist Progress Note - Encounter Date of Encounter: 05/27/18 Time of Encounter: 11:00 - Subjective Interval History: Patient still requiring high amounts of O2 supplementation with BiPAP/high flow oxygen; baseline 2 L of O2 nasal cannula Patient with good urinary output in 24 hours (1.6 L) after initiating IV Lasix - Exam Vitals: Temp Pulse Resp BP Pulse Ox 98.1 F 116 22 124/91 87 05/27/18 07:11 05/27/18 08:29 05/27/18 08:29 05/27/18 07:11 05/27/18 08:29 Exam: Gen.: Nonacute distress, alert and oriented 3 ENT: Mucosal membranes moist Respiratory: Patient with decrease airflow with deep expiration Cardiovascular: Normal S1 and S2 regular rate rhythm no murmurs rubs or gallops Abdomen: Soft, nontender and nondistended with positive bowel sounds Extremities: No lower extremity edema Skin: pale - Assessment and Plan (1) Acute and chronic respiratory failure with hypoxia Current Visit: Yes Status: Acute Assessment and Plan: Patient continues to require high amounts of O2 supplementation with BiPAP/high flow oxygen Patient with good urinary output in 24 hours (1.6 L) after initiating IV Lasix Will continue IV ceftriaxone and azithromycin for suspected pneumonia in addition to IV diuresis as above (2) Elevated brain natriuretic peptide (BNP) level Current Visit: Yes Status: Acute Assessment and Plan: Patient with elevated BNP of 749 on admission Echocardiogram showed LVEF of 70% with normal left ventricular diastolic function but mild right ventricular hypokinesis and severe pulmonary hypertension with estimated right atrial pressure of 8 mmHG Will initiate IV diuresis as above Pulmonology following in appreciate any additional recommendations given severe pulmonary hypertension noted on echocardiogram (3) Elevated troponin Current Visit: Yes Status: Acute Assessment and Plan: Suspect secondary to demand ischemia due to acute hypoxic respiratory failure above (4) COPD exacerbation Current Visit: Yes Status: Acute Assessment and Plan: Continue IV Solu-Medrol in addition to Xopenex per pulmonology recommendations. Will try to wean supplemental O2 as tolerated (5) Adenocarcinoma of left lung, stage 3 Current Visit: No Status: Chronic Assessment and Plan: Patient following with hematology oncology as outpatient. (6) Mood disorder Current Visit: Yes Status: Acute Assessment and Plan: Continue home medications (7) Hyperlipidemia Current Visit: Yes Status: Acute Assessment and Plan: Continue statin (8) Goals of care, counseling/discussion Current Visit: Yes Status: Acute Assessment and Plan: Palliative care consultd to discuss with patient about goals of care given severity of lung disease DVT Prophylaxis: Subcutaneous heparin - Time Spent with Patient Total time spent is greater than 50% in coordination of care (as documented) at patient's floor/unit and/or counseling patient: Internal Medicine: Result - Labs CBC & Chem 7: 05/27/18 03:35 05/27/18 03:35 Labs: Short CBC 05/27/18 Range/Units 03:35 WBC 8.1 (4.3-11.1) K/mcL Hgb 10.4 L (12.9-16.9) g/dL Hct 33.1 L (37.5-50.1) % Plt Count 413 H (140-400) K/mcL Neutrophils # 7.1 (1.6-8.9) K/mcL BMP 05/27/18 03:35 Sodium 140 Potassium 3.5 Chloride 102 Carbon Dioxide 31 H BUN 37 H Creatinine 0.69 L Glucose 148 H Calcium 8.7 - ABG Interpretation ABG results: ABG ABG pH 7.55 pH Units (7.32-7.45) H 05/24/18 17:03 ABG pCO2 34 mmHg (35-45) L 05/24/18 17:03 ABG pO2 58 mmHg (85-104) L 05/24/18 17:03 ABG O2 Saturation 93 % (95-98) L 05/24/18 17:03 Consult Discharge Plan - Plan [facility]errals: [facility]P [Non-Partnered Physician] - 06/04/18 10:00 am
--- NOTE | 2018-05-27 15:27 | Palliative - Consult Note ---
Date of Encounter: 05/27/18 Time of Encounter: 15:20 - Assessment and Plan (1) Nausea Current Visit: No Status: Resolved Assessment and plan: Improved. Currently on Zantac and Carafate as at home and has Phenergan as well as Zofran ODT PRN. Has not utilized in last 24 hours. (2) Anxiety about health Current Visit: Yes Status: Acute Assessment and plan: Receiving his home dose of Zoloft and has Lorazepam PRN utilized x2 last 24 hours (3) Goals of care, counseling/discussion Current Visit: Yes Status: Acute Assessment and plan: Discussed goals of care with patient at bedside. There is no family present during my visit. Patient is very tearful, stating he lost his brother 3 weeks ago and now "doctors are preparing me for the worst". When asked him to elaborate, he states "I may not get better". Provided emotional support. Patient had already completed his advanced directives with our team this summer, daughter Uzma and son Anson are his decision makers if needed, but he is alert and oriented and can make decision for himself at this time. Previously he was also a DNR-Arrest - state form was done. At that time, he desired short term intubation if needed, but now after speaking with physicians, he does not want to be intubated. He understands that with his severe lung disease, he may not be able to wean off machine. He desired to change code status to DNR/DNI. He is also very concerned regarding the high amount of oxygen he is on, and hopes, "getting the fluid off", will decrease his oxygen demand. When asking him if his goals of care have changed with his disease progression, he states he would like to have his daughter here for that discussion. I called her with his permission, and he spoke with her briefly on the phone. She is aware of his DNR change. She will be in tomorrow early afternoon, and will plan on meeting with them at that time. Thank you for the consult on this very pleasant gentleman. (4) COPD (chronic obstructive pulmonary disease) Current Visit: No Status: Chronic Assessment and plan: Pulmonology following Qualifiers: COPD type: emphysema Emphysema type: panlobular Qualified Code(s): J43.1 - Panlobular emphysema (5) Adenocarcinoma of left lung, stage 3 Current Visit: No Status: Chronic (6) Acute and chronic respiratory failure with hypoxia Current Visit: Yes Status: Acute Palliative-CN HPI - Data of Consult Patient: known to practice within the last 3 years Consult date: 05/27/18 Requesting Physician: Gregorio Trujillo Primary Care Provider: PCP NONE - Consult Narrative History of present illness: Mr. Dumont is a 73 year old male known to the palliative care team from previous visit this summer, who was admitted with hypoxia, respiratory failure. His shortness of breath and cough had worsened at home approx 2 days prior to arriving to ER. He was transferred to [facility] from [facility]. Patient has known history of stage III adenocarcinoma of the lung s/p chemo radiation. Also has long history of tobacco abuse, but did stop smoking 5 years ago. We met him this summer, when he was struggling with severe esophagitis, and ultimately he did have to have a PEG placed in Sept at the [facility] in [place]. He is dependent on 2L oxygen at home. Pulmonology is following closely here, he is currently utilizing the [facility] system with 55 L of oxygen. He is being treated with IV steroids/atb/and diuretic therapy. Upon my visit, pt does not appear dyspneic at rest, and states breathing is better than on admission, however, he does become short of breath with conversation. He denies any pain or discomfort and states he is tolerating tube feedings well and having regular bowel movements. He is tearful, and states that "the doctors are not giving me much of a chance". No family is currently present. CC: Gregorio Trujillo - Time Spent with Patient Time: Total time spent is greater than 50% in coordination of care (as documented) at patient's floor/unit and/or counseling patient: Past Med Surg Social Fam HX - Past Medical History Medical history: cancer, COPD Additional medical history: htn. copd. lung nodule Psychiatric history: anxiety, depression, PTSD - Past Surgical History Surgical History: other Additional surgical history: right CTR. left arm ORIF. PEG placement - Social History Smoking Status: Former smoker Packs per day: 1 pack every 3 days, also used chew tobacco Smokeless Tobacco Status: Yes Alcohol use: none Drug use: none - Family History Mother Age: 69 Living Status: Hx Family Cardiac Disorders: Yes Hx Family Respiratory Disorders: Yes (TB+) Hx Family Cancer: Yes Hx Family GI Disorders: Yes Father History Unknown: Yes Age: 73 Medications and Allergies Albuterol Sulfate [Proventil Hfa] 2 puff IH Q6H PRN 12/01/17 [History] Sucralfate [Carafate] 1 gm PO QIDAC #1 bottle 02/09/18 [Rx] Ondansetron [Zofran ODT] 8 mg SL Q8H PRN #30 tab 02/17/18 [Rx] Calcium Carbonate 650 mg PO DAILY 03/08/18 [History] Cholecalciferol (D-3) [Vitamin D] 1,000 unit PO DAILY 03/08/18 [History] Clopidogrel [Plavix] 75 mg PO DAILY 03/08/18 [History] Promethazine [Phenergan] 25 mg PO Q6HR PRN 03/08/18 [History] Oxycodone HCl [OxyCODONE Oral Soln] 5 - 10 mg PO Q4-6H PRN 8 Days #500 mls 05/10/18 [Rx] Pantoprazole Sodium [Protonix] 40 mg PO DAILY #30 norakt 05/10/18 [Rx] Atorvastatin [Lipitor] 20 mg PO HS 05/24/18 [History] LevETIRAcetam [Keppra] 500 mg PO BID 05/24/18 [History] Mirtazapine [Remeron] 30 mg PO DAILY 05/24/18 [History] Ranitidine Oral Soln [Zantac] 75 mg PO DAILY 05/24/18 [History] Sertraline HCl [Zoloft] 100 mg PO DAILY 05/24/18 [History] Tiotropium [place] [Spiriva Respimat] 2 puff IH DAILY 05/24/18 [History] Allergy/AdvReac Type Severity Reaction Status Date / Time aspirin [ASA] Allergy Swelling Verified 04/06/18 11:12 of Lip/Tongue/Throat codeine Allergy Swelling Verified 04/06/18 11:12 of Lip/Tongue/Throat Penicillins [PCN] Allergy Hives Verified 04/06/18 11:12 All systems: reviewed and no additional remarkable complaints except as stated (Severe shortness of breath, productive cough with light yellow sputum, generalized weakness, inability to swallow solid food) Palliative Care-Exam - Constitutional Vitals: Temp Pulse Resp BP Pulse Ox 98.1 F 113 22 131/72 91 05/27/18 07:11 05/27/18 14:15 05/27/18 14:15 05/27/18 11:27 05/27/18 14:15 General appearance: Present: no acute distress, thin - Head Head Exam: Present: normal inspection, normocephalic - Respiratory Additional comments: Crackles noted to bilateral bases posteriorally - Cardiovascular Cardiovascular exam: Present: +S1 - GI/Abdominal Exam GI/Abdominal exam: Present: normal bowel sounds, soft additional comments: PEG intact and clamped at present - Extremities Exam Extremities exam: Present: normal capillary refill, normal inspection - Neurological Exam Neurological exam: Present: alert, oriented X3, strengths equal and symetr throughout - Psychiatric Psychiatric exam: Present: anxious - Skin Skin exam: Present: dry, pallor, warm Internal Medicine - CN: Reslt - Labs CBC & Chem 7: 05/27/18 03:35 05/27/18 03:35 Labs: Short CBC 05/27/18 Range/Units 03:35 WBC 8.1 (4.3-11.1) K/mcL Hgb 10.4 L (12.9-16.9) g/dL Hct 33.1 L (37.5-50.1) % Plt Count 413 H (140-400) K/mcL Neutrophils # 7.1 (1.6-8.9) K/mcL BMP 05/27/18 03:35 Sodium 140 Potassium 3.5 Chloride 102 Carbon Dioxide 31 H BUN 37 H Creatinine 0.69 L Glucose 148 H Calcium 8.7 - ABG Interpretation ABG results: ABG ABG pH 7.55 pH Units (7.32-7.45) H 05/24/18 17:03 ABG pCO2 34 mmHg (35-45) L 05/24/18 17:03 ABG pO2 58 mmHg (85-104) L 05/24/18 17:03 ABG O2 Saturation 93 % (95-98) L 05/24/18 17:03 Consult Discharge Plan - Plan [facility]errals: [facility] [[facility] Physician] - 06/04/18 10:00 am Palliative Quality Palliative Quality: Screen for Code Status: Yes, Screen for Goals of Care: Yes, Screen for Pain: Yes, If Pain Regimen Started, Initiate Bowel Regimen: NA, Screen for Nausea/Vomitting: Yes Code Status: 05/24/18 05:20 Resuscitation Status: Active [RES] Routine Comment: Resuscitation Status: Full Code 05/27/18 15:16 DNR [Resuscitation Status: Active] [RES] Routine Comment: Resuscitation Status: [id number]
[2018-05-27] MEDS: Mirtazapine 15 MG TABLET PO SCH (20:59)
[2018-05-27] MEDS: hydrOXYzine pamoate 25 MG CAPSULE PO PRN (20:59)
[2018-05-28] MEDS: MethylPREDNISolone 40 MG/ML VIAL IVP SCH ×4 (03:02→23:33)
[2018-05-28] MEDS: Levalbuterol Neb 1.25 MG/3 ML IH SCH ×4 (03:52→21:57)
[2018-05-28] MEDS: *HR* Heparin 5,000 UNIT/ML VIAL SQ SCH ×2 (06:26→16:32)
--- NOTE | 2018-05-28 07:55 | Pulmonology Progress Note ---
Date of Encounter: 05/28/18 Time of Encounter: 07:54 Assessment and Plan (1) Acute and chronic respiratory failure with hypoxia Current Visit: Yes Status: Acute This is multifactorial and suspected initiated by radiation-induced lung injury complicated by severe underlying emphysema and chronic pulmonary hypertension He remains on high flow oxygen with Goal to keep saturation greater than 88% I would continue IV steroids. He would be a good candidate for bronchoscopy but given CODE STATUS and amount of high flow oxygen I suspect that the likelihood of intubation is quite high I broadened his antibiotics to cover for hospital associated organisms at this time send MRSA nasal swab and could de-escalate coverage from MRSA if negative. (2) Pulmonary hypertension Current Visit: Yes Status: Acute I reviewed the report/formal interpretation of the echocardiogram there is evide nce of cor pulmonale which is likely secondary to his hypoxemia. Would more aggressively diurese the patient goal but -1-1.5 L negative daily as tolerated (3) COPD exacerbation Current Visit: Yes Status: Acute Continue schedule bronchodilators IV steroids and oxygen He is also on antimicrobials with no clear causative organism as of yet respiratory infection panel was negative would treat for 5-7 days for possible infectious etiology (4) Lung cancer Current Visit: No Status: Chronic He is status post definitive chemoradiation Qualifiers: Laterality: left Lung location: upper lobe of lung Qualified Code(s): C34.12 - Malignant neoplasm of upper lobe, left bronchus or lung (5) Goals of care, counseling/discussion Current Visit: Yes Status: Acute DNAR/DNI. Palliative care has evaluated the patient appreciate their evaluation and recommendations Subjective Principal diagnosis: Respiratory Failure Interval history: Remains on high amont of Fio2 support up to 80% with 50L. he states that he actually has been feeling better. He had one episode where he coughed up some phlegm that was mixed with the streaks of blood. Remains afebrile Objective PUL Vital signs: Last Vital Signs Temp 98.0 F 05/28/18 07:43 Pulse 94 05/28/18 07:43 Resp 12 05/28/18 07:43 BP 124/79 05/28/18 07:43 Pulse Ox 90 05/28/18 07:43 General appearance: no acute distress Eyes: nonicteric Neck: supple Effort: other (Appears comfortable) Auscultation: bilateral: rales (Throughout all lung garcia) Cardiovascular: regular rate and rhythm Gastrointestinal: normoactive bowel sounds Integumentary: normal Extremities: no cyanosis, no edema, no clubbing Musculoskeletal: no deformities normal mental status, non-focal exam mood appropriate Results - Laboratory Findings CBC and BMP: 05/27/18 03:35 05/27/18 03:35 ABG ABG pH 7.55 pH Units (7.32-7.45) H 05/24/18 17:03 ABG pCO2 34 mmHg (35-45) L 05/24/18 17:03 ABG pO2 58 mmHg (85-104) L 05/24/18 17:03 ABG O2 Saturation 93 % (95-98) L 05/24/18 17:03 Abnormal lab findings: Abnormal lab results RBC 3.34 M/mcL (4.19-5.50) L 05/27/18 03:35 Hgb 10.4 g/dL (12.9-16.9) L 05/27/18 03:35 Hct 33.1 % (37.5-50.1) L 05/27/18 03:35 MCHC 31.4 g/dL (31.6-35.5) L 05/27/18 03:35 RDW 17.5 % (11.5-14.5) H 05/27/18 03:35 Plt Count 413 K/mcL (140-400) H 05/27/18 03:35 Lymphocytes # 0.4 K/mcL (0.6-4.6) L 05/27/18 03:35 Nucleated RBCs/100 WBC 0.3 /100 WBC (0) H 05/26/18 05:40 Large Platelets Present (Not Present) A 05/24/18 05:05 Anisocytosis 1+ (Not Present) A 05/24/18 05:05 Macrocytosis Present (Not Present) A 05/24/18 05:05 ABG pH 7.55 pH Units (7.32-7.45) H 05/24/18 17:03 ABG pCO2 34 mmHg (35-45) L 05/24/18 17:03 ABG pO2 58 mmHg (85-104) L 05/24/18 17:03 ABG HCO3 30 mEq/L (21-27) H 05/24/18 17:03 ABG Total CO2 31 mEq/L (20-26) H 05/24/18 17:03 ABG O2 Saturation 93 % (95-98) L 05/24/18 17:03 ABG Base Excess 7 mEq/L (-2 to 3) H 05/24/18 17:03 Carbon Dioxide 31 mEq/L (23-29) H 05/27/18 03:35 BUN 37 mg/dL (8-23) H 05/27/18 03:35 Creatinine 0.69 mg/dL (0.70-1.30) L 05/27/18 03:35 BUN/Creatinine Ratio 54 (6-26) H 05/27/18 03:35 Glucose 148 mg/dL (70-105) H 05/27/18 03:35 Calculated Osmolality 301 (280-300) H 05/27/18 03:35 Troponin I 0.04 ng/mL (< 0.04) H* 05/25/18 00:57 B-Natriuretic Peptide 749 pg/mL (Less than 100) H 05/24/18 05:05 Serum Total Protein 6.0 g/dL (6.4-8.9) L 05/24/18 05:05 Albumin 2.8 g/dL (3.5-5.7) L 05/24/18 05:05 Albumin/Globulin Ratio 0.9 (1.1-2.2) L 05/24/18 05:05 - Clinical Findings Intake & Output: Intake & Output 05/27/18 05/27/18 05/28/18 15:59 23:59 07:59 Intake Total 1020 / 1020 320 / 320 Output Total 1075 / 1075 300 / 300 Balance -55 / -55 20 / 20 Weight 56.2 kg Consult Discharge Plan - Plan [facility]errals: [facility] [Non-Partnered Physician] - 06/04/18 10:00 am
[2018-05-28] MEDS: levETIRAcetam 250 MG TABLET PO SCH ×2 (08:31→20:00)
[2018-05-28] MEDS: Furosemide 40 MG/4 ML VIAL IVP SCH ×2 (08:32→16:32)
[2018-05-28] MEDS: Cefepime HCl 1,000 MG in 0.9 % Sodium Chloride Mini Bag 100 ML IVPB SCH ×2 (08:32→20:00)
--- NOTE | 2018-05-28 11:04 | Palliative Progress Note ---
Date of Encounter: 05/28/18 Time of Encounter: 12:25 - Assessment and plan (1) Dyspnea Current Visit: Yes Status: Acute Assessment and plan: Continues with high flow oxygen, steroid therapy, antibiotics. Work of breathing better today, still hypoxic with activity. Monitor. Pulmonology following. Rad oncology to visit today. (2) Nausea Current Visit: No Status: Resolved (3) Anxiety about health Current Visit: Yes Status: Acute Assessment and plan: Remains on Zoloft - he has PRN Lorazepam if needed, but has not utilized since 05/26. MOnitor (4) Goals of care, counseling/discussion Current Visit: Yes Status: Acute Assessment and plan: Discussion this am between specialties. Dr. Joel/Dr. Rizzo discussing possible radiation pneumonitis. Dr. Rizzo will be visiting patient today. Daughter is at bedside. Patient is hoping that they can continue to prescribe treatment effective for him, and wants to take measures to improve his health. Will attempt to be available at time of that visit.. I saw him twice today. Patient states that he has not seen another physician as of yet. Daughter did have to leave to go to work. Palliative will continue to follow. He is 100% service connected and [facility] (5) COPD (chronic obstructive pulmonary disease) Current Visit: No Status: Chronic Qualifiers: COPD type: emphysema Emphysema type: panlobular Qualified Code(s): J43.1 - Panlobular emphysema (6) Adenocarcinoma of left lung, stage 3 Current Visit: No Status: Chronic (7) Acute and chronic respiratory failure with hypoxia Current Visit: Yes Status: Acute - Time Spent With Patient Total time spent is greater than 50% in coordination of care (as documented) at patient's floor/unit and/or counseling patient: - Subjective Interval history: Patient feeling better, stated he tolerated being up to [facility] last pm. Remains on [facility] with high flow oxygen. . Denies pain/discomfort or nausea. Daughter Uzma at bedside. - Constitutional Vitals: Abnormal lab results RBC 3.34 M/mcL (4.19-5.50) L 05/27/18 03:35 Hgb 10.4 g/dL (12.9-16.9) L 05/27/18 03:35 Hct 33.1 % (37.5-50.1) L 05/27/18 03:35 MCHC 31.4 g/dL (31.6-35.5) L 05/27/18 03:35 RDW 17.5 % (11.5-14.5) H 05/27/18 03:35 Plt Count 413 K/mcL (140-400) H 05/27/18 03:35 Lymphocytes # 0.4 K/mcL (0.6-4.6) L 05/27/18 03:35 Nucleated RBCs/100 WBC 0.3 /100 WBC (0) H 05/26/18 05:40 Large Platelets Present (Not Present) A 05/24/18 05:05 Anisocytosis 1+ (Not Present) A 05/24/18 05:05 Macrocytosis Present (Not Present) A 05/24/18 05:05 ABG pH 7.55 pH Units (7.32-7.45) H 05/24/18 17:03 ABG pCO2 34 mmHg (35-45) L 05/24/18 17:03 ABG pO2 58 mmHg (85-104) L 05/24/18 17:03 ABG HCO3 30 mEq/L (21-27) H 05/24/18 17:03 ABG Total CO2 31 mEq/L (20-26) H 05/24/18 17:03 ABG O2 Saturation 93 % (95-98) L 05/24/18 17:03 ABG Base Excess 7 mEq/L (-2 to 3) H 05/24/18 17:03 Carbon Dioxide 31 mEq/L (23-29) H 05/27/18 03:35 BUN 37 mg/dL (8-23) H 05/27/18 03:35 Creatinine 0.69 mg/dL (0.70-1.30) L 05/27/18 03:35 BUN/Creatinine Ratio 54 (6-26) H 05/27/18 03:35 Glucose 148 mg/dL (70-105) H 05/27/18 03:35 Calculated Osmolality 301 (280-300) H 05/27/18 03:35 Troponin I 0.04 ng/mL (< 0.04) H* 05/25/18 00:57 B-Natriuretic Peptide 749 pg/mL (Less than 100) H 05/24/18 05:05 Serum Total Protein 6.0 g/dL (6.4-8.9) L 05/24/18 05:05 Albumin 2.8 g/dL (3.5-5.7) L 05/24/18 05:05 Albumin/Globulin Ratio 0.9 (1.1-2.2) L 05/24/18 05:05 General appearance: Present: no acute distress - Respiratory Additional comments: Crackles bilateral lower lobes posteriorally - Cardiovascular Cardiovascular exam: Present: +S1, +S2 - GI/Abdominal GI/Abdominal exam: Present: normal bowel sounds, soft Additional comments: PEG intact - Extremities Exam Extremities exam: Present: normal capillary refill, normal inspection - Neurological Exam Neurological exam: Present: alert, oriented X3, strengths equal and symetr throughout - Skin Skin exam: Present: dry, warm Palliative Quality Palliative Quality: Screen for Code Status: Yes, Screen for Goals of Care: Yes, Screen for Pain: Yes, If Pain Regimen Started, Initiate Bowel Regimen: NA, Screen for Nausea/Vomitting: Yes Code Status: 05/24/18 05:20 Resuscitation Status: Active [RES] Routine Comment: Resuscitation Status: Full Code 05/27/18 15:16 DNR [Resuscitation Status: Active] [RES] Routine Comment: Resuscitation Status: [id number] - Labs CBC & Chem 7: 05/27/18 03:35 05/27/18 03:35 - ABG Interpretation ABG results: ABG ABG pH 7.55 pH Units (7.32-7.45) H 05/24/18 17:03 ABG pCO2 34 mmHg (35-45) L 05/24/18 17:03 ABG pO2 58 mmHg (85-104) L 05/24/18 17:03 ABG O2 Saturation 93 % (95-98) L 05/24/18 17:03 Consult Discharge Plan - Plan [facility]errals: [facility] [Non-Partnered Physician] - 06/04/18 10:00 am
--- NOTE | 2018-05-28 19:44 | Internal Med Progress Note ---
Hospitalist Progress Note - Encounter Date of Encounter: 05/28/18 Time of Encounter: 11:00 - Subjective Interval History: Patient still requiring high amounts of O2 supplementation with BiPAP/high flow oxygen; baseline 2 L of O2 nasal cannula Patient with good urinary output in 48 hours (approximately 3L) after initiating IV Lasix - Exam Vitals: Temp Pulse Resp BP Pulse Ox 97.5 F L 103 20 155/80 88 05/28/18 16:43 05/28/18 17:02 05/28/18 16:43 05/28/18 16:43 05/28/18 16:43 Exam: Gen.: Nonacute distress, alert and oriented 3 ENT: Mucosal membranes moist Respiratory: Patient with decrease airflow with deep expiration Cardiovascular: Normal S1 and S2 regular rate rhythm no murmurs rubs or gallops Abdomen: Soft, nontender and nondistended with positive bowel sounds Extremities: No lower extremity edema Skin: pale - Assessment and Plan (1) Acute and chronic respiratory failure with hypoxia Current Visit: Yes Status: Acute Assessment and Plan: Patient continues to require high amounts of O2 supplementation with BiPAP/high flow oxygen Patient with good urinary output in 24 hours (1.6 L) after initiating IV Lasix Will continue IV ceftriaxone and azithromycin for suspected pneumonia in addition to IV diuresis as above (2) Elevated brain natriuretic peptide (BNP) level Current Visit: Yes Status: Acute Assessment and Plan: Patient with elevated BNP of 749 on admission Echocardiogram showed LVEF of 70% with normal left ventricular diastolic function but mild right ventricular hypokinesis and severe pulmonary hypertension with estimated right atrial pressure of 8 mmHG Will increase IV diuresis per pulmonology recommendations Pulmonology following in appreciate any additional recommendations given severe pulmonary hypertension noted on echocardiogram (3) Elevated troponin Current Visit: Yes Status: Acute Assessment and Plan: Suspect secondary to demand ischemia due to acute hypoxic respiratory failure above (4) COPD exacerbation Current Visit: Yes Status: Acute Assessment and Plan: Continue IV Solu-Medrol in addition to Xopenex per pulmonology recommendations. Will try to wean supplemental O2 as tolerated (5) Adenocarcinoma of left lung, stage 3 Current Visit: No Status: Chronic Assessment and Plan: Patient following with hematology oncology as outpatient. (6) Mood disorder Current Visit: Yes Status: Acute Assessment and Plan: Continue home medications (7) Hyperlipidemia Current Visit: Yes Status: Acute Assessment and Plan: Continue statin (8) Goals of care, counseling/discussion Current Visit: Yes Status: Acute Assessment and Plan: Palliative care consultd to discuss with patient about goals of care given severity of lung disease DVT Prophylaxis: Subcutaneous heparin - Time Spent with Patient Total time spent is greater than 50% in coordination of care (as documented) at patient's floor/unit and/or counseling patient: Internal Medicine: Result - Labs CBC & Chem 7: 05/27/18 03:35 05/27/18 03:35 - ABG Interpretation ABG results: ABG ABG pH 7.55 pH Units (7.32-7.45) H 05/24/18 17:03 ABG pCO2 34 mmHg (35-45) L 05/24/18 17:03 ABG pO2 58 mmHg (85-104) L 05/24/18 17:03 ABG O2 Saturation 93 % (95-98) L 05/24/18 17:03 Consult Discharge Plan - Plan Referrals: [facility] [Non-Partnered Physician] - 06/04/18 10:00 am
[2018-05-28] MEDS: hydrOXYzine pamoate 25 MG CAPSULE PO PRN (20:00)
[2018-05-28] MEDS: Mirtazapine 15 MG TABLET PO SCH (20:00)
[2018-05-28] MEDS: Furosemide 80 MG in 0.9 % Sodium Chloride 50 ML IVPB SCH (20:19)
[2018-05-29] MEDS: Levalbuterol Neb 1.25 MG/3 ML IH SCH ×4 (03:46→21:30)
[2018-05-29] MEDS: *HR* Heparin 5,000 UNIT/ML VIAL SQ SCH ×2 (06:41→17:43)
[2018-05-29] MEDS: MethylPREDNISolone 40 MG/ML VIAL IVP SCH ×2 (08:28→16:25)
[2018-05-29] MEDS: levETIRAcetam 250 MG TABLET PO SCH ×2 (08:28→21:02)
[2018-05-29] MEDS: Cefepime HCl 1,000 MG in 0.9 % Sodium Chloride Mini Bag 100 ML IVPB SCH ×2 (08:29→21:00)
--- NOTE | 2018-05-29 09:02 | Internal Med Progress Note ---
Hospitalist Progress Note - Encounter Date of Encounter: 05/29/18 Time of Encounter: 11:00 - Subjective Interval History: Patient remains on high amounts of O2 supplementation with high flow oxygen; baseline 2 L of O2 nasal cannula Patient with good IV diuresis as has put out over 2 L in 24 hours after doubling dose of IV Lasix - Exam Vitals: Temp Pulse Resp BP Pulse Ox 97.6 F 81 20 129/81 95 05/29/18 08:07 05/29/18 08:07 05/29/18 08:07 05/29/18 08:07 05/29/18 03:46 Exam: Gen.: Nonacute distress, alert and oriented 3 ENT: Mucosal membranes moist Respiratory: Patient with decrease airflow with deep expiration Cardiovascular: Normal S1 and S2 regular rate rhythm no murmurs rubs or gallops Abdomen: Soft, nontender and nondistended with positive bowel sounds Extremities: No lower extremity edema Skin: pale - Assessment and Plan (1) Acute and chronic respiratory failure with hypoxia Current Visit: Yes Status: Acute Assessment and Plan: Patient continues to require high amounts of O2 supplementation with high flow oxygen Patient with 24 hour urinary output of over 2 L after IV Lasix was doubled on 05/28/18 due to severe pulmonary vascular congestion There is also concerns for questionable radiation pneumonitis Will continue IV ceftriaxone and azithromycin for suspected pneumonia in addition to IV diuresis as above Pulmonology following and appreciate recommendations (2) Elevated brain natriuretic peptide (BNP) level Current Visit: Yes Status: Acute Assessment and Plan: Patient with elevated BNP of 749 on admission Echocardiogram showed LVEF of 70% with normal left ventricular diastolic function but mild right ventricular hypokinesis and severe pulmonary hypertension with estimated right atrial pressure of 8 mmHG IV Lasix was doubled as above due to severe pulmonary vascular congestion Pulmonology following in appreciate any additional recommendations given severe pulmonary hypertension noted on echocardiogram (3) Elevated troponin Current Visit: Yes Status: Acute Assessment and Plan: Suspect secondary to demand ischemia due to acute hypoxic respiratory failure above (4) COPD exacerbation Current Visit: Yes Status: Acute Assessment and Plan: Continue IV Solu-Medrol in addition to Xopenex per pulmonology recommendations. Will try to wean high flow supplemental O2 as tolerated to keep sats greater than 80% (5) Adenocarcinoma of left lung, stage 3 Current Visit: No Status: Chronic Assessment and Plan: Patient following with hematology oncology as outpatient. (6) Mood disorder Current Visit: Yes Status: Acute Assessment and Plan: Continue home medications (7) Hyperlipidemia Current Visit: Yes Status: Acute Assessment and Plan: Continue statin (8) Goals of care, counseling/discussion Current Visit: Yes Status: Acute Assessment and Plan: Palliative care consultd to discuss with patient about goals of care given severity of lung disease DVT Prophylaxis: Subcutaneous heparin - Time Spent with Patient Total time spent is greater than 50% in coordination of care (as documented) at patient's floor/unit and/or counseling patient: Internal Medicine: Result - Labs CBC & Chem 7: 05/29/18 09:35 05/29/18 09:35 - ABG Interpretation ABG results: ABG ABG pH 7.55 pH Units (7.32-7.45) H 05/24/18 17:03 ABG pCO2 34 mmHg (35-45) L 05/24/18 17:03 ABG pO2 58 mmHg (85-104) L 05/24/18 17:03 ABG O2 Saturation 93 % (95-98) L 05/24/18 17:03 Consult Discharge Plan - Plan [facility]errals: [facility] [Non-Partnered Physician] - 06/04/18 10:00 am
[2018-05-29 09:48] LABS: Basophils % 0.1 %; Hematocrit 40.8 % (37.5-50.1); Immature Granulocytes % 0.5 % (0-4); Lymphocytes # 0.6 K/mcL (0.6-4.6); Lymphocytes % 7.9 %; Mean Corpuscular HGB Conc 32.4 g/dL (31.6-35.5); Mean Corpuscular Volume 95.8 fL (83.0-100.0); Mean Platelet Volume 9.3 fL (9.4-12.4); Monocytes # 0.7 K/mcL (0.0-1.3); Monocytes % 9.1 %; Neutrophils # 6.5 K/mcL (1.6-8.9); Nucleated Red Blood Cells 0.3 /100 WBC (0); Platelet Count 411 K/mcL (140-400); Red Blood Count 4.26 M/mcL (4.19-5.50); Red Cell Distribution Width 17.4 % (11.5-14.5); Segmented Neutrophils % 82.4 %
[2018-05-29 10:14] LABS: Hemoglobin 13.2 g/dL (12.9-16.9)
--- NOTE | 2018-05-29 10:33 | Pulmonology Progress Note ---
Date of Encounter: 05/29/18 Time of Encounter: 09:00 Assessment and Plan (1) Acute and chronic respiratory failure ([id number]) Current Visit: Yes Status: Acute Patient's symptoms are contributed due to many costs with radiation-induced pneumonitis, with severe emphysema and COPD, pulmonary hypertension all contributing to this patient also has cor pulmonale continued diuresis as tolerated. Patient IF changes his mind to full code if that is the case will consider bronchoscopy at that point. Qualifiers: Respiratory failure complication: hypoxia Qualified Code(s): J96.21 - Acute and chronic respiratory failure with hypoxia (2) Pulmonary hypertension Current Visit: Yes Status: Acute 2) group 3 pulmonary hypertension n medications not available for group 3 (3) Goals of care, counseling/discussion Current Visit: Yes Status: Acute Patient is DNRA (4) COPD exacerbation Current Visit: Yes Status: Acute Bronchodilators and steroids to continue diuresis. Subjective Principal diagnosis: Respiratory Failure Interval history: Patient symptoms are stable no new complaints, no acute events overnight Objective PUL Vital signs: Last Vital Signs Temp 97.6 F 05/29/18 08:07 Pulse 81 05/29/18 08:07 Resp 20 05/29/18 08:07 BP 129/81 05/29/18 08:07 Pulse Ox 95 05/29/18 03:46 Auscultation: bilateral: wheezes Results - Laboratory Findings CBC and BMP: 05/29/18 09:35 05/29/18 09:35 ABG ABG pH 7.55 pH Units (7.32-7.45) H 05/24/18 17:03 ABG pCO2 34 mmHg (35-45) L 05/24/18 17:03 ABG pO2 58 mmHg (85-104) L 05/24/18 17:03 ABG O2 Saturation 93 % (95-98) L 05/24/18 17:03 Abnormal lab findings: Abnormal lab results RDW 17.4 % (11.5-14.5) H 05/29/18 09:35 Plt Count 411 K/mcL (140-400) H 05/29/18 09:35 MPV 9.3 fL (9.4-12.4) L 05/29/18 09:35 Nucleated RBCs/100 WBC 0.3 /100 WBC (0) H 05/29/18 09:35 Large Platelets Present (Not Present) A 05/24/18 05:05 Anisocytosis 1+ (Not Present) A 05/24/18 05:05 Macrocytosis Present (Not Present) A 05/24/18 05:05 ABG pH 7.55 pH Units (7.32-7.45) H 05/24/18 17:03 ABG pCO2 34 mmHg (35-45) L 05/24/18 17:03 ABG pO2 58 mmHg (85-104) L 05/24/18 17:03 ABG HCO3 30 mEq/L (21-27) H 05/24/18 17:03 ABG Total CO2 31 mEq/L (20-26) H 05/24/18 17:03 ABG O2 Saturation 93 % (95-98) L 05/24/18 17:03 ABG Base Excess 7 mEq/L (-2 to 3) H 05/24/18 17:03 Carbon Dioxide 31 mEq/L (23-29) H 05/27/18 03:35 BUN 37 mg/dL (8-23) H 05/27/18 03:35 Creatinine 0.69 mg/dL (0.70-1.30) L 05/27/18 03:35 BUN/Creatinine Ratio 54 (6-26) H 05/27/18 03:35 Glucose 148 mg/dL (70-105) H 05/27/18 03:35 Calculated Osmolality 301 (280-300) H 05/27/18 03:35 Troponin I 0.04 ng/mL (< 0.04) H* 05/25/18 00:57 B-Natriuretic Peptide 749 pg/mL (Less than 100) H 05/24/18 05:05 Serum Total Protein 6.0 g/dL (6.4-8.9) L 05/24/18 05:05 Albumin 2.8 g/dL (3.5-5.7) L 05/24/18 05:05 Albumin/Globulin Ratio 0.9 (1.1-2.2) L 05/24/18 05:05 - Clinical Findings Intake & Output: Intake & Output 05/28/18 05/29/18 05/29/18 23:59 07:59 15:59 Intake Total 1148 / 1148 480 / 480 Output Total 1225 / 1225 Balance -77 / -77 480 / 480 Weight 54.5 kg Consult Discharge Plan - Plan [facility]errals[facility] [Non-Partnered Physician] - 06/04/18 10:00 am
[2018-05-29] MEDS: Furosemide 80 MG in 0.9 % Sodium Chloride 50 ML IVPB SCH ×2 (10:35→21:02)
[2018-05-29 10:58] LABS: BUN/Creatinine Ratio 57 (6-26); Blood Urea Nitrogen 47 mg/dL (8-23); Calcium 8.5 mg/dL (8.6-10.3); Carbon Dioxide 24 mEq/L (23-29); Chloride 97 mEq/L (98-107); Glucose 151 mg/dL (70-105); Osmolality,Calculated 301 (280-300); Potassium 3.6 mEq/L (3.5-5.1); Sodium 138 mEq/L (136-145); eGFR For Non-African Americans > 60 (> 60)
--- NOTE | 2018-05-29 12:15 | Palliative Progress Note ---
Date of Encounter: 05/29/18 Time of Encounter: 11:30 - Assessment and plan (1) Dyspnea Current Visit: Yes Status: Acute Assessment and plan: Patient tolerating high flow O2 via NC. Uses Bipap PRN. Patien sat in the chair today. Tolerating Nebulizers, Bipap and on Solumedrol. Pulmonology following hospital stay. Qualifiers: Dyspnea type: unspecified Qualified Code(s): R06.00 - Dyspnea, unspecified (2) Frailty Current Visit: Yes Status: Chronic Assessment and plan: H/O lung cancer with chemo/radiation. PEG feedings by patient at home. Patient tolerating liquid diet and oral tobacco. Patient states he uses 2L NC at home. Baseline performance status is up at home with walker at times as breathing is an issue. Has been up in the chair here. (3) Goals of care, counseling/discussion Current Visit: Yes Status: Acute Assessment and plan: Patient alert and oriented. Daughter November to come in today. Hoping to touch base with her to discuss patients POC. Patient will likely need rehab at NH. DNRCC - A, DNI. (4) COPD exacerbation Current Visit: Yes Status: Acute - Time Spent With Patient Total time spent is greater than 50% in coordination of care (as documented) at patient's floor/unit and/or counseling patient: 25 - 35 minutes - Subjective Interval history: Patient remains on high flow nasal O2. Patient able to hold conversation with minimal dyspnea. Patient calm and able to answer questions. Denies pain and reports feeling better overall. - Constitutional Vitals: Abnormal lab results RDW 17.4 % (11.5-14.5) H 05/29/18 09:35 Plt Count 411 K/mcL (140-400) H 05/29/18 09:35 MPV 9.3 fL (9.4-12.4) L 05/29/18 09:35 Nucleated RBCs/100 WBC 0.3 /100 WBC (0) H 05/29/18 09:35 Large Platelets Present (Not Present) A 05/24/18 05:05 Anisocytosis 1+ (Not Present) A 05/24/18 05:05 Macrocytosis Present (Not Present) A 05/24/18 05:05 ABG pH 7.55 pH Units (7.32-7.45) H 05/24/18 17:03 ABG pCO2 34 mmHg (35-45) L 05/24/18 17:03 ABG pO2 58 mmHg (85-104) L 05/24/18 17:03 ABG HCO3 30 mEq/L (21-27) H 05/24/18 17:03 ABG Total CO2 31 mEq/L (20-26) H 05/24/18 17:03 ABG O2 Saturation 93 % (95-98) L 05/24/18 17:03 ABG Base Excess 7 mEq/L (-2 to 3) H 05/24/18 17:03 Chloride 97 mEq/L (98-107) L 05/29/18 09:35 BUN 47 mg/dL (8-23) H 05/29/18 09:35 BUN/Creatinine Ratio 57 (6-26) H 05/29/18 09:35 Glucose 151 mg/dL (70-105) H 05/29/18 09:35 Calculated Osmolality 301 (280-300) H 05/29/18 09:35 Calcium 8.5 mg/dL (8.6-10.3) L 05/29/18 09:35 Troponin I 0.04 ng/mL (< 0.04) H* 05/25/18 00:57 B-Natriuretic Peptide 749 pg/mL (Less than 100) H 05/24/18 05:05 Serum Total Protein 6.0 g/dL (6.4-8.9) L 05/24/18 05:05 Albumin 2.8 g/dL (3.5-5.7) L 05/24/18 05:05 Albumin/Globulin Ratio 0.9 (1.1-2.2) L 05/24/18 05:05 - Head Head exam: Present: atraumatic, normal inspection, normocephalic - Eye Pupils: Present: PERRL - ENT ENT exam: Present: mucous membranes moist - Neck Neck exam: Present: full ROM - Respiratory Respiratory exam: Present: decreased breath sounds - Expanded Respiratory Exam Location: decreased breath sounds: Left, Right, Lower - Cardiovascular Cardiovascular exam: Present: RRR, +S1, +S2 - GI/Abdominal GI/Abdominal exam: Present: normal bowel sounds, soft - Extremities Exam Extremities exam: Present: full ROM - Neurological Exam Neurological exam: Present: alert, oriented X3 - Psychiatric Psychiatric exam: Present: normal affect - Skin Skin exam: Present: pallor, warm Palliative Quality Palliative Quality: Screen for Code Status: Yes, Screen for Goals of Care: Yes, Screen for Pain: Yes, If Pain Regimen Started, Initiate Bowel Regimen: NA, Screen for Nausea/Vomitting: Yes Code Status: 05/24/18 05:20 Resuscitation Status: Active [RES] Routine Comment: Resuscitation Status: Full Code 05/27/18 15:16 DNR [Resuscitation Status: Active] [RES] Routine Comment: Resuscitation Status: [id number] - Labs CBC & Chem 7: 05/29/18 09:35 05/29/18 09:35 Labs: Laboratory Results - last 24 hr 05/28/18 05/29/18 05/29/18 13:55 09:35 09:35 WBC 7.9 RBC 4.26 Hgb 13.2 D Hct 40.8 MCV 95.8 MCH 31.0 MCHC 32.4 RDW 17.4 H Plt Count 411 H MPV 9.3 L Immature Gran % 0.5 Seg Neutrophils % 82.4 Lymphocytes % 7.9 Monocytes % 9.1 Eosinophils % 0.0 Basophils % 0.1 Neutrophils # 6.5 Lymphocytes # 0.6 Monocytes # 0.7 Eosinophils # 0.0 Basophils # 0.0 Nucleated RBCs/100 WBC 0.3 H Sodium 138 Potassium 3.6 Chloride 97 L Carbon Dioxide 24 BUN 47 H Creatinine 0.83 Est GFR ( Amer) > 60 Est GFR (Non-Af Amer) > 60 BUN/Creatinine Ratio 57 H Glucose 151 H Calculated Osmolality 301 H Calcium 8.5 L Nasal Screen MRSA (PCR) Negative - ABG Interpretation ABG results: ABG ABG pH 7.55 pH Units (7.32-7.45) H 05/24/18 17:03 ABG pCO2 34 mmHg (35-45) L 05/24/18 17:03 ABG pO2 58 mmHg (85-104) L 05/24/18 17:03 ABG O2 Saturation 93 % (95-98) L 05/24/18 17:03 Consult Discharge Plan - Plan [facility]errals: [facility] [Non-Partnered Physician] - 06/04/18 10:00 am
--- NOTE | 2018-05-29 18:57 | Electrocardiograph Report ---
[address] [place], [place] [address] Test Date: 2018-05-25 Pat Name: Philipp Dumont Department: 109 Room: 2N05 Gender: M [employer] Coordinator: JENNIFER : 1945 Requested By: Lisa Womack Order Number: [id number] Reading MD: Albetro Turpin Measurements Intervals [place] Rate: 116 P: 52 VA: 142 QRS: 99 QRSD: 96 T: -14 QT: 289 QTc: 358 Interpretive Statements SINUS TACHYCARDIA WITH OCCASIONAL SUPRAVENTRICULAR PREMATURE COMPLEXES LEFT ATRIAL ENLARGEMENT BORDERLINE RIGHT AXIS DEVIATION INCOMPLETE RIGHT BUNDLE BRANCH BLOCK POSSIBLE ANTERIOR MYOCARDIAL INFARCTION, OF INDETERMINATE AGE Electronically Signed On 05-29-2018 18:55:51 EDT by Alberto Turpin
[2018-05-29] MEDS: Mirtazapine 15 MG TABLET PO SCH (21:01)
[2018-05-29] MEDS: hydrOXYzine pamoate 25 MG CAPSULE PO PRN (21:12)
[2018-05-30] MEDS: MethylPREDNISolone 40 MG/ML VIAL IVP SCH ×4 (00:42→23:48)
[2018-05-30] MEDS: Levalbuterol Neb 1.25 MG/3 ML IH SCH ×4 (03:50→22:36)
[2018-05-30] MEDS: *HR* Heparin 5,000 UNIT/ML VIAL SQ SCH ×2 (06:44→18:21)
[2018-05-30] MEDS: levETIRAcetam 250 MG TABLET PO SCH ×2 (08:30→21:01)
[2018-05-30] MEDS: Cefepime HCl 1,000 MG in 0.9 % Sodium Chloride Mini Bag 100 ML IVPB SCH ×2 (08:31→21:00)
[2018-05-30] MEDS: Furosemide 80 MG in 0.9 % Sodium Chloride 50 ML IVPB SCH ×2 (08:31→21:01)
--- NOTE | 2018-05-30 10:13 | Internal Med Progress Note ---
Hospitalist Progress Note - Encounter Date of Encounter: 05/30/18 Time of Encounter: 11:00 - Subjective Interval History: Patient remains on high amounts of O2 supplementation with high flow oxygen; baseline 2 L of O2 nasal cannula Patient with good IV diuresis as has put out over 3.5 L in 48 hours after doubling dose of IV Lasix - Exam Vitals: Temp Pulse Resp BP Pulse Ox 97.6 F 83 22 137/82 95 05/30/18 08:20 05/30/18 08:20 05/30/18 08:20 05/30/18 08:20 05/30/18 08:20 Exam: Gen.: Nonacute distress, alert and oriented 3 ENT: Mucosal membranes moist Respiratory: Patient with decrease airflow with deep expiration Cardiovascular: Normal S1 and S2 regular rate rhythm no murmurs rubs or gallops Abdomen: Soft, nontender and nondistended with positive bowel sounds Extremities: No lower extremity edema Skin: pale - Assessment and Plan (1) Acute and chronic respiratory failure with hypoxia Current Visit: Yes Status: Acute Assessment and Plan: Patient continues to require high amounts of O2 supplementation with high flow oxygen Patient with 48 hour urinary output of over 3.5 L after IV Lasix was doubled on 05/28/18 due to severe pulmonary vascular congestion Repeat chest x-ray pending There is also concerns for questionable radiation pneumonitis Will continue IV ceftriaxone and azithromycin for suspected pneumonia in addit ion to IV diuresis as above Pulmonology following and appreciate recommendations (2) Elevated brain natriuretic peptide (BNP) level Current Visit: Yes Status: Acute Assessment and Plan: Patient with elevated BNP of 749 on admission Echocardiogram showed LVEF of 70% with normal left ventricular diastolic function but mild right ventricular hypokinesis and severe pulmonary hypertension with estimated right atrial pressure of 8 mmHG IV Lasix was doubled as above due to severe pulmonary vascular congestion; repeat chest x-ray pending Pulmonology following in appreciate any additional recommendations given severe pulmonary hypertension noted on echocardiogram (3) Elevated troponin Current Visit: Yes Status: Acute Assessment and Plan: Suspect secondary to demand ischemia due to acute hypoxic respiratory failure above (4) COPD exacerbation Current Visit: Yes Status: Acute Assessment and Plan: Continue IV Solu-Medrol in addition to Xopenex per pulmonology recommendations. Will try to wean high flow supplemental O2 as tolerated to keep sats greater than 80% (5) Adenocarcinoma of left lung, stage 3 Current Visit: No Status: Chronic Assessment and Plan: Patient following with hematology oncology as outpatient. (6) Mood disorder Current Visit: Yes Status: Acute Assessment and Plan: Continue home medications (7) Hyperlipidemia Current Visit: Yes Status: Acute Assessment and Plan: Continue statin (8) Goals of care, counseling/discussion Current Visit: Yes Status: Acute Assessment and Plan: Palliative care consultd to discuss with patient about goals of care given severity of lung disease DVT Prophylaxis: Subcutaneous heparin - Time Spent with Patient Total time spent is greater than 50% in coordination of care (as documented) at patient's floor/unit and/or counseling patient: Internal Medicine: Result - Labs CBC & Chem 7: 05/30/18 10:00 05/30/18 10:00 Labs: Short CBC 05/29/18 Range/Units 09:35 WBC 7.9 (4.3-11.1) K/mcL Hgb 13.2 D (12.9-16.9) g/dL Hct 40.8 (37.5-50.1) % Plt Count 411 H (140-400) K/mcL Neutrophils # 6.5 (1.6-8.9) K/mcL BMP 05/29/18 09:35 Sodium 138 Potassium 3.6 Chloride 97 L Carbon Dioxide 24 BUN 47 H Creatinine 0.83 Glucose 151 H Calcium 8.5 L - ABG Interpretation ABG results: ABG ABG pH 7.55 pH Units (7.32-7.45) H 05/24/18 17:03 ABG pCO2 34 mmHg (35-45) L 05/24/18 17:03 ABG pO2 58 mmHg (85-104) L 05/24/18 17:03 ABG O2 Saturation 93 % (95-98) L 05/24/18 17:03 Consult Discharge Plan - Plan Referrals: [facility] [Non-Partnered Physician] - 06/04/18 10:00 am
[2018-05-30 10:34] LABS: Basophils % 0.1 %; Hematocrit 41.3 % (37.5-50.1); Hemoglobin 13.5 g/dL (12.9-16.9); Immature Granulocytes % 0.5 % (0-4); Lymphocytes # 0.3 K/mcL (0.6-4.6); Lymphocytes % 4.4 %; Mean Corpuscular HGB Conc 32.7 g/dL (31.6-35.5); Mean Corpuscular Hemoglobin 30.8 pg (28.0-33.3); Mean Corpuscular Volume 94.1 fL (83.0-100.0); Mean Platelet Volume 9.9 fL (9.4-12.4); Monocytes # 0.4 K/mcL (0.0-1.3); Monocytes % 4.7 %; Neutrophils # 6.8 K/mcL (1.6-8.9); Platelet Count 392 K/mcL (140-400); Red Blood Count 4.39 M/mcL (4.19-5.50); Segmented Neutrophils % 90.3 %
[2018-05-30 10:50] LABS: BUN/Creatinine Ratio 61 (6-26); Blood Urea Nitrogen 51 mg/dL (8-23); Calcium 8.6 mg/dL (8.6-10.3); Carbon Dioxide 34 mEq/L (23-29); Chloride 91 mEq/L (98-107); Glucose 260 mg/dL (70-105); Osmolality,Calculated 305 (280-300); Potassium 2.9 mEq/L (3.5-5.1); Sodium 136 mEq/L (136-145); eGFR For Non-African Americans > 60 (> 60)
--- NOTE | 2018-05-30 11:23 | Pulmonology Progress Note ---
Date of Encounter: 05/30/18 Time of Encounter: 11:00 Assessment and Plan (1) Acute and chronic respiratory failure ([id number]) Current Visit: Yes Status: Acute Patient's symptoms are contributed due to many causes with radiation-induced pneumonitis, with severe emphysema and COPD, pulmonary hypertension all contributing to this patient also has cor pulmonale continued diuresis as tolerated. Patient IF changes his mind to full code if that is the case will consider bronchoscopy at that point. 05/30 patient's face is getting a lot better to continue with diuresis as tolerated. That is making the difference now continue steroids for the radiation pneumonitis. 3 week taper of steroids. Qualifiers: Respiratory failure complication: hypoxia Qualified Code(s): J96.21 - Acute and chronic respiratory failure with hypoxia (2) Pulmonary hypertension Current Visit: Yes Status: Acute 2) group 3 pulmonary hypertension no medications not available for group 3 (3) Goals of care, counseling/discussion Current Visit: Yes Status: Acute Patient is DNRA (4) COPD exacerbation Current Visit: Yes Status: Acute Bronchodilators and steroids to continue diuresis. Subjective Principal diagnosis: Respiratory Failure Interval history: Patient symptoms are stable no new complaints, no acute events overnight 05/30 patient says his symptoms are a lot better denies any chest pain or chest tightness denies not much cough or sputum production denies any fever or chills denies any other constitutional symptoms. Objective PUL Vital signs: Last Vital Signs Temp 97.6 F 05/30/18 08:20 Pulse 90 05/30/18 10:58 Resp 22 05/30/18 08:20 BP 137/82 05/30/18 08:20 Pulse Ox 95 05/30/18 08:20 Effort: mildly labored Auscultation: bilateral: rales (very minimal scattered rales ) Results - Laboratory Findings CBC and BMP: 05/30/18 10:00 05/30/18 10:00 ABG ABG pH 7.55 pH Units (7.32-7.45) H 05/24/18 17:03 ABG pCO2 34 mmHg (35-45) L 05/24/18 17:03 ABG pO2 58 mmHg (85-104) L 05/24/18 17:03 ABG O2 Saturation 93 % (95-98) L 05/24/18 17:03 Abnormal lab findings: Abnormal lab results RDW 17.0 % (11.5-14.5) H 05/30/18 10:00 Lymphocytes # 0.3 K/mcL (0.6-4.6) L 05/30/18 10:00 Nucleated RBCs/100 WBC 0.3 /100 WBC (0) H 05/29/18 09:35 Large Platelets Present (Not Present) A 05/24/18 05:05 Anisocytosis 1+ (Not Present) A 05/24/18 05:05 Macrocytosis Present (Not Present) A 05/24/18 05:05 ABG pH 7.55 pH Units (7.32-7.45) H 05/24/18 17:03 ABG pCO2 34 mmHg (35-45) L 05/24/18 17:03 ABG pO2 58 mmHg (85-104) L 05/24/18 17:03 ABG HCO3 30 mEq/L (21-27) H 05/24/18 17:03 ABG Total CO2 31 mEq/L (20-26) H 05/24/18 17:03 ABG O2 Saturation 93 % (95-98) L 05/24/18 17:03 ABG Base Excess 7 mEq/L (-2 to 3) H 05/24/18 17:03 Potassium 2.9 mEq/L (3.5-5.1) L 05/30/18 10:00 Chloride 91 mEq/L (98-107) L 05/30/18 10:00 Carbon Dioxide 34 mEq/L (23-29) H 05/30/18 10:00 BUN 51 mg/dL (8-23) H 05/30/18 10:00 BUN/Creatinine Ratio 61 (6-26) H 05/30/18 10:00 Glucose 260 mg/dL (70-105) H 05/30/18 10:00 Calculated Osmolality 305 (280-300) H 05/30/18 10:00 Troponin I 0.04 ng/mL (< 0.04) H* 05/25/18 00:57 B-Natriuretic Peptide 749 pg/mL (Less than 100) H 05/24/18 05:05 Serum Total Protein 6.0 g/dL (6.4-8.9) L 05/24/18 05:05 Albumin 2.8 g/dL (3.5-5.7) L 05/24/18 05:05 Albumin/Globulin Ratio 0.9 (1.1-2.2) L 05/24/18 05:05 Vancomycin Trough 13 mcg/mL (5-10) H 05/29/18 21:10 - Clinical Findings Intake & Output: Intake & Output 05/29/18 05/30/18 05/30/18 23:59 07:59 15:59 Intake Total 920 / 920 408 / 408 220 / 220 Output Total 900 / 900 Balance 408 / 408 220 / 220 Weight 54.3 kg Consult Discharge Plan - Plan Referrals: [facility] [Non-Partnered Physician] - 06/04/18 10:00 am
[2018-05-30] MEDS: hydrOXYzine pamoate 25 MG CAPSULE PO PRN (18:22)
[2018-05-30] MEDS: Mirtazapine 15 MG TABLET PO SCH (21:01)
[2018-05-31] MEDS ORDERED: Potassium Chloride Elixir 20 MEQ/15 ML UDC GTUBE ONE (02:16)
[2018-05-31] MEDS: Levalbuterol Neb 1.25 MG/3 ML IH SCH ×4 (03:50→22:04)
[2018-05-31] MEDS: *HR* Heparin 5,000 UNIT/ML VIAL SQ SCH ×2 (05:54→16:00)
[2018-05-31 06:27] LABS: BUN/Creatinine Ratio 57 (6-26); Blood Urea Nitrogen 44 mg/dL (8-23); Calcium 8.7 mg/dL (8.6-10.3); Carbon Dioxide 36 mEq/L (23-29); Chloride 93 mEq/L (98-107); Glucose 154 mg/dL (70-105); Osmolality,Calculated 298 (280-300); Potassium 3.6 mEq/L (3.5-5.1); Sodium 137 mEq/L (136-145); eGFR For Non-African Americans > 60 (> 60)
[2018-05-31] MEDS: levETIRAcetam 250 MG TABLET PO SCH ×2 (08:32→19:37)
[2018-05-31] MEDS: MethylPREDNISolone 40 MG/ML VIAL IVP SCH ×3 (08:34→23:10)
[2018-05-31] MEDS: Cefepime HCl 1,000 MG in 0.9 % Sodium Chloride Mini Bag 100 ML IVPB SCH ×2 (08:34→19:39)
[2018-05-31] MEDS: Furosemide 80 MG in 0.9 % Sodium Chloride 50 ML IVPB SCH ×2 (08:35→21:45)
[2018-05-31] MEDS: *HR* LORazepam 2 MG/ML VIAL IVP PRN ×3 (09:00→21:44)
--- NOTE | 2018-05-31 11:30 | Palliative Progress Note ---
Date of Encounter: 05/31/18 Time of Encounter: 10:10 - Assessment and plan (1) Dyspnea Current Visit: Yes Status: Acute Assessment and plan: Improving with current treatment - continues with steroids/Albuterol/Xopenex and Iv antibiotics. Qualifiers: Dyspnea type: unspecified Qualified Code(s): R06.00 - Dyspnea, unspecified (2) Nausea Current Visit: No Status: Resolved Assessment and plan: Still has occasional nausea, most generally with last tube feed of the day. Has Ondansetron/Promethazine PRN. Denies at this time. (3) Anxiety about health Current Visit: Yes Status: Acute (4) Goals of care, counseling/discussion Current Visit: Yes Status: Acute Assessment and plan: Patient's primary nurse stated that family was upset over his DNR status. There was no family at bedside, but I did again discuss with patient, and he still wants to maintain a DNR/DNI status. He does not want to be placed on ve ntilator, and states that whenever his heart stops, he wishes to pass away with peace and comfort. I did tell him as well as nurse, that if family arrived and had other concerns related to this, to let me know and I will discuss. He is unsure as far as discharge plan, if he wants to go to rehab at [place] or try and go home with home care. States he will be thinking about this. Will continue to follow. (5) COPD (chronic obstructive pulmonary disease) Current Visit: No Status: Chronic Qualifiers: COPD type: emphysema Emphysema type: panlobular Qualified Code(s): J43.1 - Panlobular emphysema (6) Adenocarcinoma of left lung, stage 3 Current Visit: No Status: Chronic (7) Acute and chronic respiratory failure with hypoxia Current Visit: Yes Status: Acute - Time Spent With Patient Total time spent is greater than 50% in coordination of care (as documented) at patient's floor/unit and/or counseling patient: - Subjective Interval history: Patient awake, states didn't sleep last night and getting "tired from being here". No family present. He feels breathing is improving a little each day, and has been able to tolerate being out of chair. He is speaking fluently in full sentences without respirtory distress. - Constitutional Vitals: Abnormal lab results RDW 17.0 % (11.5-14.5) H 05/30/18 10:00 Lymphocytes # 0.3 K/mcL (0.6-4.6) L 05/30/18 10:00 Nucleated RBCs/100 WBC 0.3 /100 WBC (0) H 05/29/18 09:35 Large Platelets Present (Not Present) A 05/24/18 05:05 Anisocytosis 1+ (Not Present) A 05/24/18 05:05 Macrocytosis Present (Not Present) A 05/24/18 05:05 ABG pH 7.55 pH Units (7.32-7.45) H 05/24/18 17:03 ABG pCO2 34 mmHg (35-45) L 05/24/18 17:03 ABG pO2 58 mmHg (85-104) L 05/24/18 17:03 ABG HCO3 30 mEq/L (21-27) H 05/24/18 17:03 ABG Total CO2 31 mEq/L (20-26) H 05/24/18 17:03 ABG O2 Saturation 93 % (95-98) L 05/24/18 17:03 ABG Base Excess 7 mEq/L (-2 to 3) H 05/24/18 17:03 Chloride 93 mEq/L (98-107) L 05/31/18 05:50 Carbon Dioxide 36 mEq/L (23-29) H 05/31/18 05:50 BUN 44 mg/dL (8-23) H 05/31/18 05:50 BUN/Creatinine Ratio 57 (6-26) H 05/31/18 05:50 Glucose 154 mg/dL (70-105) H 05/31/18 05:50 Troponin I 0.04 ng/mL (< 0.04) H* 05/25/18 00:57 B-Natriuretic Peptide 749 pg/mL (Less than 100) H 05/24/18 05:05 Serum Total Protein 6.0 g/dL (6.4-8.9) L 05/24/18 05:05 Albumin 2.8 g/dL (3.5-5.7) L 05/24/18 05:05 Albumin/Globulin Ratio 0.9 (1.1-2.2) L 05/24/18 05:05 Vancomycin Trough 13 mcg/mL (5-10) H 05/29/18 21:10 General appearance: Present: no acute distress - Respiratory Respiratory exam: Present: decreased breath sounds Additional comments: Crackles to bilateral bases. - Cardiovascular Cardiovascular exam: Present: +S1, +S2 - GI/Abdominal GI/Abdominal exam: Present: normal bowel sounds, soft Additional comments: PEG intact - Extremities Exam Extremities exam: Present: normal capillary refill, normal inspection - Neurological Exam Neurological exam: Present: alert, oriented X3, strengths equal and symetr throughout - Skin Skin exam: Present: dry, warm Palliative Quality Palliative Quality: Screen for Code Status: Yes, Screen for Goals of Care: Yes, Screen for Pain: Yes, If Pain Regimen Started, Initiate Bowel Regimen: NA, Screen for Nausea/Vomitting: Yes Code Status: 05/24/18 05:20 Resuscitation Status: Active [RES] Routine Comment: Resuscitation Status: Full Code 05/27/18 15:16 DNR [Resuscitation Status: Active] [RES] Routine Comment: Resuscitation Status: [id number] - Labs CBC & Chem 7: 05/30/18 10:00 05/31/18 05:50 Labs: Laboratory Results - last 24 hr 05/31/18 05:50 Sodium 137 Potassium 3.6 Chloride 93 L Carbon Dioxide 36 H BUN 44 H Creatinine 0.77 Est GFR ( Amer) > 60 Est GFR (Non-Af Amer) > 60 BUN/Creatinine Ratio 57 H Glucose 154 H Calculated Osmolality 298 Calcium 8.7 - ABG Interpretation ABG results: ABG ABG pH 7.55 pH Units (7.32-7.45) H 05/24/18 17:03 ABG pCO2 34 mmHg (35-45) L 05/24/18 17:03 ABG pO2 58 mmHg (85-104) L 05/24/18 17:03 ABG O2 Saturation 93 % (95-98) L 05/24/18 17:03 Consult Discharge Plan - Plan [facility]errals: [facility] [Non-Partnered Physician] - 06/04/18 10:00 am
--- NOTE | 2018-05-31 17:51 | Internal Med Progress Note ---
Hospitalist Progress Note - Encounter Date of Encounter: 05/31/18 Time of Encounter: 17:51 - Subjective Interval History: Pt denies CP and SOB about the same. He denies fever, chills, N/V or diarrhea. Pain controlled. - Exam Vitals: Temp Pulse Resp BP Pulse Ox 97.4 F L 89 19 138/85 95 05/31/18 17:07 05/31/18 17:07 05/31/18 17:07 05/31/18 17:07 05/31/18 17:07 Exam: Gen.: Nonacute distress, alert and oriented 3 ENT: Mucosal membranes moist Respiratory: Patient with decreased airflow with deep expiration Cardiovascular: Normal S1 and S2 regular rate rhythm no murmurs rubs or gallops Abdomen: Soft, nontender and nondistended with positive bowel sounds Extremities: No lower extremity edema Skin: no rash, bumps, or bruises. - Assessment and Plan (1) Acute and chronic respiratory failure with hypoxia Current Visit: Yes Status: Acute Assessment and Plan: Patient continues to require high amounts of O2 supplementation with high flow oxygen Patient with 48 hour urinary output of over 3.5 L after IV Lasix was doubled on 05/28/18 due to severe pulmonary vascular congestion Repeat chest x-ray pending There is also concerns for questionable radiation pneumonitis Will continue IV ceftriaxone and azithromycin for suspected pneumonia in addition to IV diuresis as above Pulmonology following and appreciate recommendations (2) Pulmonary hypertension Current Visit: Yes Status: Acute Assessment and Plan: Patient with elevated BNP of 749 on admission Echocardiogram showed LVEF of 70% with normal left ventricular diastolic function but mild right ventricular hypokinesis and severe pulmonary hypertension with estimated right atrial pressure of 8 mmHG. Estimated RVSP is 65 mmHg. IV Lasix was doubled as above due to severe pulmonary vascular congestion; Will repeat chest x-ray. Pulmonology following in appreciate any additional recommendations given severe pulmonary hypertension noted on echocardiogram. Per pulmonology patient has group 3 pulm HTN for which there is no medication (3) Adenocarcinoma of left lung, stage 3 Current Visit: No Status: Chronic Assessment and Plan: Patient following with hematology oncology as outpatient. (4) Elevated brain natriuretic peptide (BNP) level Current Visit: Yes Status: Chronic Assessment and Plan: Patient with elevated BNP of 749 on admission Echocardiogram showed LVEF of 70% with normal left ventricular diastolic function but mild right ventricular hypokinesis and severe pulmonary hypertension with estimated right atrial pressure of 8 mmHG. Estimated RVSP is 65 mmHg. IV Lasix was doubled as above due to severe pulmonary vascular congestion; Will repeat chest x-ray. Pulmonology following in appreciate any additional recommendations given severe pulmonary hypertension noted on echocardiogram. Per pulmonology patient has group 3 pulm HTN for which there is no medication (5) Elevated troponin Current Visit: Yes Status: Acute Assessment and Plan: Suspect secondary to demand ischemia due to acute hypoxic respiratory failure above (6) COPD exacerbation Current Visit: Yes Status: Acute Assessment and Plan: Continue IV Solu-Medrol in addition to Xopenex per pulmonology recommendations. Will try to wean high flow supplemental O2 as tolerated to keep sats greater than 80%. However, pt's prognosis is looking poor. (7) Mood disorder Current Visit: Yes Status: Acute Assessment and Plan: Continue home medications (8) Hyperlipidemia Current Visit: Yes Status: Acute Assessment and Plan: Continue Atorvastatin. (9) Goals of care, counseling/discussion Current Visit: Yes Status: Acute Assessment and Plan: Palliative care consulted to discuss with patient about goals of care given severity of lung disease. Patient stated to palliative care that he still wants to maintain a DNR/DNI status. He does not want to be placed on ventilator, and states that whenever his heart stops, he wishes to pass away with peace and comfort. DVT Prophylaxis: Subcutaneous heparin - Summary of Assessment and Plan Summary of Assessment and Plan: Mr. Dumont is a 73 year old male Patient presented from [facility] emergency room with a 3 week history of shortness of breath. He states that he is never had shortness of breath quite like this before. He has had history of COPD exacerbations however. He is on oxygen at home at 2 L nasal cannula, but states despite this he was not able to catch his breath. Of note, patient has a known diagnosis of stage III squamous cell lung cancer, which according to [facility] emergency room records he is not currently receiving treatment for it. He does however have a G-tube in place and is unable to take anything by mouth. He called the ambulance who came to his home, found him initially with an oxygen saturation in the 70s. His oxygen improved after being started on nasal cannula oxygen and he was in the mid 90s. However upon arrival to the [facility] ER his oxygen saturation was 66%. He was placed on BiPAP and after 2 hours of this in the emergency room his saturations improved and he was able to be weaned back to nasal cannula and maintained saturations in the 90s. Chest x-ray was performed which showed an increased density on the left, a CT angiogram of his chest was performed which was negative for pulmonary embolism but did show severe emphysema and fibrotic changes of the lung. Patient has a significant smoking history of 1 pack per day, but he quit 4 years ago. Lab work performed at the [facility] ER showed a BNP of 17,392, initial troponin of 0.057, repeat troponin was 0.060. EKG did not show ischemic changes. Lactic acid initially was 4.2 but improved 3.2 on repeat. CBC was within normal limits, BMP initially showed a potassium of 2.8, otherwise was within normal limits. Imaging also indicated that patients G-tube had migrated into the antrum of the stomach, and the radiologist was concerned for gastric outlet obstruction. The ER physician adjusted this, and secured it in place better. Patient was started on ceftriaxone, azithromycin, prednisone and breathing treatments prior to being transferred to [facility] for further management. Upon my assessment, patient has received wreathing treatments and is currently on oxygen. He states that he is feeling much better. He denies nausea, vomiting, diarrhea, constipation. He denies chest pain at this time as well as abdominal pain. I discussed with the patient CODE STATUS, and initially he indicated that he did not want to be resuscitated. After further clarification, patient agreed to be full code but did not want to much effort if things appeared to not be going well. - Time Spent with Patient Total time spent is greater than 50% in coordination of care (as documented) at patient's floor/unit and/or counseling patient: less than 15 minutes Plan of Care Discussed with: patient Internal Medicine: Result - Labs CBC & Chem 7: 05/30/18 10:00 05/31/18 05:50 Labs: BMP 05/31/18 05:50 Sodium 137 Potassium 3.6 Chloride 93 L Carbon Dioxide 36 H BUN 44 H Creatinine 0.77 Glucose 154 H Calcium 8.7 - ABG Interpretation ABG results: ABG ABG pH 7.55 pH Units (7.32-7.45) H 05/24/18 17:03 ABG pCO2 34 mmHg (35-45) L 05/24/18 17:03 ABG pO2 58 mmHg (85-104) L 05/24/18 17:03 ABG O2 Saturation 93 % (95-98) L 05/24/18 17:03 Consult Discharge Plan - Plan Referrals: [facility],PCP [Non-Partnered Physician] - 06/04/18 10:00 am
[2018-05-31] MEDS: Mirtazapine 15 MG TABLET PO SCH (19:38)
[2018-06-01] MEDS: Levalbuterol Neb 1.25 MG/3 ML IH SCH ×4 (04:22→21:07)
[2018-06-01] MEDS: *HR* Heparin 5,000 UNIT/ML VIAL SQ SCH ×2 (04:28→16:36)
[2018-06-01] MEDS ORDERED: Aminoglycoside Consult 1 EACH MC ONE (08:26)
[2018-06-01] MEDS: MethylPREDNISolone 40 MG/ML VIAL IVP SCH ×2 (08:46→16:25)
[2018-06-01] MEDS: levETIRAcetam 250 MG TABLET PO SCH ×2 (08:46→19:28)
[2018-06-01] MEDS: Furosemide 80 MG in 0.9 % Sodium Chloride 50 ML IVPB SCH ×2 (08:47→19:31)
[2018-06-01] MEDS: Cefepime HCl 1,000 MG in 0.9 % Sodium Chloride Mini Bag 100 ML IVPB SCH ×2 (08:49→19:27)
--- NOTE | 2018-06-01 10:46 | Event Note ---
Date of Encounter: 06/01/18 Time of Encounter: 10:30 Patient resting quietly. Struggling with not getting much sleep but states he is slowly feeling better and was up in chair 45 min yesterday. Remains on steroids, lasix, IV atb. Staff attempting to wean oxygen down. CXR improved. I spoke with daughter November by phone per patient request and updated her on clinical status. He is considering transitioning to [place] for rehab upon discharge. Palliative will follow at a distance.
[2018-06-01] MEDS: *HR* LORazepam 2 MG/ML VIAL IVP PRN ×2 (10:57→16:25)
--- NOTE | 2018-06-01 16:14 | Internal Med Progress Note ---
Hospitalist Progress Note - Encounter Date of Encounter: 06/01/18 Time of Encounter: 15:16 - Subjective Interval History: Pt denies CP and SOB about the same. He denies fever, chills, N/V or diarrhea. Pain controlled. - Exam Vitals: Temp Pulse Resp BP Pulse Ox 98.3 F 85 20 129/80 93 06/01/18 11:17 06/01/18 11:17 06/01/18 11:17 06/01/18 11:17 06/01/18 11:17 Exam: Physical exam: Gen.: Nonacute distress, alert and oriented 3 ENT: Mucosal membranes moist Respiratory: Patient with decreased airflow with deep expiration, poor respiratory effort. Cardiovascular: Normal S1 and S2 regular rate rhythm no murmurs rubs or gallops Abdomen: Soft, nontender and nondistended with positive bowel sounds Extremities: No lower extremity edema Skin: no rash, bumps, or bruises. - Assessment and Plan (1) Acute and chronic respiratory failure with hypoxia Current Visit: Yes Status: Acute Assessment and Plan: Patient continues to require high amounts of O2 supplementation with high flow oxygen Patient with 48 hour urinary output of over 3.5 L after IV Lasix was doubled on 05/28/18 due to severe pulmonary vascular congestion Repeat chest x-ray pending There is also concerns for questionable radiation pneumonitis Was on ceftriaxone and azithromycin for suspected pneumonia then changed to Cefepime and Vanc. Will DC antibiotic as pt likely has radiation pneumoitis which is not amendable to antibiotic. On IV diuresis as above Pulmonology saw the pt and appreciate recommendations (2) Pulmonary hypertension Current Visit: Yes Status: Acute Assessment and Plan: Patient with elevated BNP of 749 on admission Echocardiogram showed LVEF of 70% with normal left ventricular diastolic function but mild right ventricular hypokinesis and severe pulmonary hypertension with estimated right atrial pressure of 8 mmHG. Estimated RVSP is 65 mmHg. IV Lasix was doubled as above due to severe pulmonary vascular congestion; Will repeat chest x-ray. Pulmonology following in appreciate any additional recommendations given severe pulmonary hypertension noted on echocardiogram. Per pulmonology patient has group 3 pulm HTN for which there is no medication (3) Adenocarcinoma of left lung, stage 3 Current Visit: No Status: Chronic Assessment and Plan: Patient following with hematology oncology as outpatient. (4) Elevated brain natriuretic peptide (BNP) level Current Visit: Yes Status: Chronic Assessment and Plan: Patient with elevated BNP of 749 on admission Echocardiogram showed LVEF of 70% with normal left ventricular diastolic fun ction but mild right ventricular hypokinesis and severe pulmonary hypertension with estimated right atrial pressure of 8 mmHG. Estimated RVSP is 65 mmHg. IV Lasix was doubled as above due to severe pulmonary vascular congestion; Will repeat chest x-ray. Pulmonology following in appreciate any additional recommendations given severe pulmonary hypertension noted on echocardiogram. Per pulmonology patient has group 3 pulm HTN for which there is no medication (5) Elevated troponin Current Visit: Yes Status: Acute Assessment and Plan: Suspect secondary to demand ischemia due to acute hypoxic respiratory failure above (6) COPD exacerbation Current Visit: Yes Status: Acute Assessment and Plan: Continue IV Solu-Medrol in addition to Xopenex per pulmonology recommendations. Will try to wean high flow supplemental O2 as tolerated to keep sats greater than 80%. However, pt's prognosis is looking poor. (7) Mood disorder Current Visit: Yes Status: Acute Assessment and Plan: Continue home medications (8) Hyperlipidemia Current Visit: Yes Status: Acute Assessment and Plan: Continue Atorvastatin. (9) Goals of care, counseling/discussion Current Visit: Yes Status: Acute Assessment and Plan: Palliative care consulted to discuss with patient about goals of care given severity of lung disease. Patient stated to palliative care that he still wants to maintain a DNR/DNI status. He does not want to be placed on ventilator, and states that whenever his heart stops, he wishes to pass away with peace and comfort. DVT Prophylaxis: Subcutaneous heparin - Summary of Assessment and Plan Summary of Assessment and Plan: History of presenting illness. Mr. Dumont is a 73 year old male patient presented from [facility] emergency room with a 3 week history of shortness of breath. He states that he is never had shortness of breath quite like this before. He has had history of COPD exacerbations however. He is on oxygen at home at 2 L nasal cannula, but states despite this he was not able to catch his breath. Of note, patient has a known diagnosis of stage III squamous cell lung cancer, which according to [facility] emergency room records he is not currently receiving treatment for it. He does however have a G-tube in place and is unable to take anything by mouth. He called the ambulance who came to his home, found him initially with an oxygen saturation in the 70s. His oxygen improved after being started on nasal cannula oxygen and he was in the mid 90s. However upon arrival to the [facility] ER his oxygen saturation was 66%. He was placed on BiPAP and after 2 hours of this in the emergency room his saturations improved and he was able to be weaned back to nasal cannula and maintained saturations in the 90s. Chest x-ray was performed which showed an increased density on the left, a CT angiogram of his chest was performed which was negative for pulmonary embolism but did show severe emphysema and fibrotic changes of the lung. Patient has a significant smoking history of 1 pack per day, but he quit 4 years ago. Lab work performed at the [facility] ER showed a BNP of 17,392, initial troponin of 0.057, repeat troponin was 0.060. EKG did not show ischemic changes. Lactic acid initially was 4.2 but improved 3.2 on repeat. CBC was within normal limits, BMP initially showed a potassium of 2.8, otherwise was within normal limits. Imaging also indicated that patients G-tube had migrated into the antrum of the stomach, and the radiologist was concerned for gastric outlet obstruction. The ER physician adjusted this, and secured it in place better. Patient was started on ceftriaxone, azithromycin, prednisone and breathing treatments prior to being transferred to [facility] for further management. Upon my assessment, patient has received wreathing treatments and is currently on oxygen. He states that he is feeling much better. He denies nausea, vomiting, diarrhea, constipation. He denies chest pain at this time as well as abdominal pain. I discussed with the patient CODE STATUS, and initially he indicated that he did not want to be resuscitated. After further clarification, patient agreed to be full code but did not want to much effort if things appeared to not be going well. - Time Spent with Patient Total time spent is greater than 50% in coordination of care (as documented) at patient's floor/unit and/or counseling patient: less than 15 minutes Plan of Care Discussed with: patient Internal Medicine: Result - Labs CBC & Chem 7: 05/30/18 10:00 05/31/18 05:50 - ABG Interpretation ABG results: ABG ABG pH 7.55 pH Units (7.32-7.45) H 05/24/18 17:03 ABG pCO2 34 mmHg (35-45) L 05/24/18 17:03 ABG pO2 58 mmHg (85-104) L 05/24/18 17:03 ABG O2 Saturation 93 % (95-98) L 05/24/18 17:03 - Impressions Impressions Chest X-Ray 05/31/18 18:02 IMPRESSION: Decreased effusions and bibasilar airspace consolidation. There is some persistent consolidation within the left retrocardiac lung. D/ / Gracy Lucero Cha, MD / Gracy Lucero Cha, MD Interpreting Provider: Gracy Lucero Cha, MD Consult Discharge Plan - Plan Referrals: [facility] [Non-Partnered Physician] - 06/04/18 10:00 am
[2018-06-01] MEDS: Mirtazapine 15 MG TABLET PO SCH (19:28)
[2018-06-02] MEDS: MethylPREDNISolone 40 MG/ML VIAL IVP SCH ×3 (00:21→15:52)
[2018-06-02] MEDS: Levalbuterol Neb 1.25 MG/3 ML IH SCH ×4 (03:38→21:56)
[2018-06-02] MEDS: *HR* Heparin 5,000 UNIT/ML VIAL SQ SCH ×2 (04:22→17:18)
[2018-06-02 04:27] LABS: Basophils % 0.1 %; Hematocrit 42.1 % (37.5-50.1); Hemoglobin 13.9 g/dL (12.9-16.9); Immature Granulocytes % 0.3 % (0-4); Lymphocytes # 0.3 K/mcL (0.6-4.6); Lymphocytes % 4.4 %; Mean Corpuscular Hemoglobin 30.5 pg (28.0-33.3); Mean Corpuscular Volume 92.3 fL (83.0-100.0); Mean Platelet Volume 9.5 fL (9.4-12.4); Monocytes # 0.6 K/mcL (0.0-1.3); Monocytes % 7.8 %; Neutrophils # 6.8 K/mcL (1.6-8.9); Platelet Count 331 K/mcL (140-400); Red Blood Count 4.56 M/mcL (4.19-5.50); Red Cell Distribution Width 15.8 % (11.5-14.5); Segmented Neutrophils % 87.4 %
[2018-06-02 04:40] LABS: BUN/Creatinine Ratio 55 (6-26); Blood Urea Nitrogen 42 mg/dL (8-23); Calcium 8.9 mg/dL (8.6-10.3); Carbon Dioxide 38 mEq/L (23-29); Chloride 87 mEq/L (98-107); Glucose 167 mg/dL (70-105); Osmolality,Calculated 296 (280-300); Potassium 2.9 mEq/L (3.5-5.1); Sodium 136 mEq/L (136-145); eGFR For Non-African Americans > 60 (> 60)
[2018-06-02] MEDS: levETIRAcetam 250 MG TABLET PO SCH ×2 (08:26→21:29)
[2018-06-02] MEDS: *HR* LORazepam 2 MG/ML VIAL IVP PRN ×3 (08:27→21:28)
[2018-06-02] MEDS: Furosemide 80 MG in 0.9 % Sodium Chloride 50 ML IVPB SCH ×2 (08:31→21:29)
[2018-06-02] MEDS ORDERED: Potassium Chloride Elixir 20 MEQ/15 ML UDC GTUBE ONE (10:32)
--- NOTE | 2018-06-02 15:14 | Internal Med Progress Note ---
Hospitalist Progress Note - Encounter Date of Encounter: 06/02/18 Time of Encounter: 15:06 - Subjective Interval History: Pt denies CP and SOB about the same. He denies fever, chills, N/V or diarrhea. Pain controlled. - Exam Vitals: Temp Pulse Resp BP Pulse Ox 97.9 F 95 18 118/68 98 06/02/18 12:00 06/02/18 12:00 06/02/18 12:00 06/02/18 12:00 06/02/18 12:00 Exam: Physical exam: Gen.: Non-acute distress, alert and oriented 3 ENT: Mucosal membranes moist Respiratory: Patient with decreased airflow with deep expiration, poor respiratory effort. Cardiovascular: Normal S1 and S2 regular rate rhythm no murmurs rubs or gallops Abdomen: Soft, non-tender and non-distended with positive bowel sounds Extremities: No lower extremity edema Skin: no rash, bumps, or bruises. - Assessment and Plan (1) Acute and chronic respiratory failure with hypoxia Current Visit: Yes Status: Acute Assessment and Plan: Patient continues to require high amounts of O2 supplementation with high flow oxygen Patient with 48 hour urinary output of over 3.5 L after IV Lasix was doubled on 05/28/18 due to severe pulmonary vascular congestion Repeat chest x-ray showing decreased effusion and babasilar airspace consolidation. ALso noted is here is some persistent consolidation within the left retro cardiac lung. There is also concerns for questionable radiation pneumonitis Was on ceftriaxone and azithromycin for suspected pneumonia then changed to Cef epime and Vanc. 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 On IV diuresis as above Pulmonology saw the pt and signed off appreciate recommendations. [facility] the pt as long as he is not on high flow oxygen. Attempts to wean pt's oxygen down has appeared to have plateaued. Will need to discuss with palliative about possible hospice consult for inpt hospice or home with hospice and it appears unlikely patient's oxygen can be successfully weaned down. (2) Pulmonary hypertension Current Visit: Yes Status: Acute Assessment and Plan: Patient with elevated BNP of 749 on admission Echocardiogram showed LVEF of 70% with normal left ventricular diastolic function but mild right ventricular hypokinesis and severe pulmonary hypertension with estimated right atrial pressure of 8 mmHG. Estimated RVSP is 65 mmHg. IV Lasix was doubled as above due to severe pulmonary vascular congestion; Will repeat chest x-ray. Pulmonology following in appreciate any additional recommendations given severe pulmonary hypertension noted on echocardiogram. Per pulmonology patient has group 3 pulm HTN for which there is no medication (3) Adenocarcinoma of left lung, stage 3 Current Visit: No Status: Chronic Assessment and Plan: Patient following with hematology oncology as outpatient. (4) Elevated brain natriuretic peptide (BNP) level Current Visit: Yes Status: Chronic Assessment and Plan: Patient with elevated BNP of 749 on admission Echocardiogram showed LVEF of 70% with normal left ventricular diastolic function but mild right ventricular hypokinesis and severe pulmonary hypertension with estimated right atrial pressure of 8 mmHG. Estimated RVSP is 65 mmHg. IV Lasix was doubled as above due to severe pulmonary vascular congestion. Repeat chest x-ray showing in effusion with some chronic areas of consolidation. Pulmonology following in appreciate any additional recommendations given severe pulmonary hypertension noted on echocardiogram. Per pulmonology patient has group 3 pulm HTN for which there is no medication (5) Elevated troponin Current Visit: Yes Status: Acute Assessment and Plan: Suspect secondary to demand ischemia due to acute hypoxic respiratory failure above (6) COPD exacerbation Current Visit: Yes Status: Acute Assessment and Plan: Continue IV Solu-Medrol in addition to Xopenex per pulmonology recommendations. Will try to wean high flow supplemental O2 as tolerated to keep sats greater than 80%. However, pt's prognosis is looking poor. Will likely beneffit from hospice consult. Will discuss with palliative care in am regarding possible inpt hospice vs home with hospice care. (7) Mood disorder Current Visit: Yes Status: Acute Assessment and Plan: Continue home medications (8) Hyperlipidemia Current Visit: Yes Status: Acute Assessment and Plan: Continue Atorvastatin. (9) Goals of care, counseling/discussion Current Visit: Yes Status: Acute Assessment and Plan: Palliative care consulted to discuss with patient about goals of care given severity of lung disease. Patient stated to palliative care that he still wants to maintain a DNR/DNI status. He does not want to be placed on ventilator, and states that whenever his heart stops, he wishes to pass away with peace and comfort. Will discuss with palliative care in am regarding possible inpt hospice vs home with hospice care. DVT Prophylaxis: Subcutaneous heparin - Summary of Assessment and Plan Summary of Assessment and Plan: History of presenting illness. Mr. Dumont is a 73 year old male patient presented from [facility] emergency room with a 3 week history of shortness of breath. He states that he is never had shortness of breath quite like this before. He has had history of COPD exacerbations however. He is on oxygen at home at 2 L nasal cannula, but states despite this he was not able to catch his breath. Of note, patient has a known diagnosis of stage III squamous cell lung cancer, which according to [facility] emergency room records he is not currently receiving treatment for it. He does however have a G-tube in place and is unable to take anything by mouth. He c alled the ambulance who came to his home, found him initially with an oxygen saturation in the 70s. His oxygen improved after being started on nasal cannula oxygen and he was in the mid 90s. However upon arrival to the [facility] ER his oxygen saturation was 66%. He was placed on BiPAP and after 2 hours of this in the emergency room his saturations improved and he was able to be weaned back to nasal cannula and maintained saturations in the 90s. Chest x-ray was performed which showed an increased density on the left, a CT angiogram of his chest was performed which was negative for pulmonary embolism but did show severe emphysema and fibrotic changes of the lung. Patient has a significant smoking history of 1 pack per day, but he quit 4 years ago. Lab work performed at the [facility] ER showed a BNP of 17,392, initial troponin of 0.057, repeat troponin was 0.060. EKG did not show ischemic changes. Lactic acid initially was 4.2 but improved 3.2 on repeat. CBC was within normal limits, BMP initially showed a potassium of 2.8, otherwise was within normal limits. Imaging also indicated that patients G-tube had migrated into the antrum of the stomach, and the radiologist was concerned for gastric outlet obstruction. The ER physician adjusted this, and secured it in place better. Patient was started on ceftriaxone, azithromycin, prednisone and breathing treatments prior to being transferred to [facility] for further management. Upon my assessment, patient has received wreathing treatments and is currently on oxygen. He states that he is feeling much better. He denies nausea, vomiting, diarrhea, constipation. He denies chest pain at this time as well as abdominal pain. I discussed with the patient CODE STATUS, and initially he indicated that he did not want to be resuscitated. After further clarification, patient agreed to be full code but did not want to much effort if things appeared to not be going well. - Time Spent with Patient Total time spent is greater than 50% in coordination of care (as documented) at patient's floor/unit and/or counseling patient: less than 15 minutes Plan of Care Discussed with: patient Internal Medicine: Result - Labs CBC & Chem 7: 06/02/18 03:53 06/02/18 03:53 Labs: Short CBC 06/02/18 Range/Units 03:53 WBC 7.8 (4.3-11.1) K/mcL Hgb 13.9 (12.9-16.9) g/dL Hct 42.1 (37.5-50.1) % Plt Count 331 (140-400) K/mcL Neutrophils # 6.8 (1.6-8.9) K/mcL BMP 06/02/18 03:53 Sodium 136 Potassium 2.9 L Chloride 87 L Carbon Dioxide 38 H BUN 42 H Creatinine 0.77 Glucose 167 H Calcium 8.9 - ABG Interpretation ABG results: ABG ABG pH 7.55 pH Units (7.32-7.45) H 05/24/18 17:03 ABG pCO2 34 mmHg (35-45) L 05/24/18 17:03 ABG pO2 58 mmHg (85-104) L 05/24/18 17:03 ABG O2 Saturation 93 % (95-98) L 05/24/18 17:03 Consult Discharge Plan - Plan [facility]: [facility] Provider[facility] - 06/04/18 10:00 am
[2018-06-02] MEDS: Mirtazapine 15 MG TABLET PO SCH (21:29)
[2018-06-02] MEDS: Potassium Chloride Elixir 20 MEQ/15 ML UDC PO SCH (21:45)
[2018-06-03] MEDS: MethylPREDNISolone 40 MG/ML VIAL IVP SCH ×2 (00:08→07:59)
[2018-06-03] MEDS: Levalbuterol Neb 1.25 MG/3 ML IH SCH ×4 (05:24→23:26)
[2018-06-03] MEDS: *HR* Heparin 5,000 UNIT/ML VIAL SQ SCH ×2 (05:39→16:39)
[2018-06-03] MEDS: levETIRAcetam 250 MG TABLET PO SCH ×2 (07:59→21:13)
[2018-06-03] MEDS: Potassium Chloride Elixir 20 MEQ/15 ML UDC PO SCH ×2 (07:59→21:14)
[2018-06-03] MEDS: Furosemide 80 MG in 0.9 % Sodium Chloride 50 ML IVPB SCH (08:00)
--- NOTE | 2018-06-03 11:01 | Discharge Summary ---
- NOTES TO OUTPATIENT PROVIDER Notes to Outpatient Provider: See hospital course. Follow up with own PCP, [facility] and Oncologist at the [facility] Orders not resulted at time of discharge: Pending orders 06/03/18 08:18 Chem 7 [Basic Metabolic Panel] Stat 06/04/18 04:00 Chem 7 [Basic Metabolic Panel] AM 0400 Date of Encounter: 06/03/18 Time of Encounter: 10:59 - Discharge Diagnosis (1) Adenocarcinoma of left lung, stage 3 Priority: Secondary Status: Chronic Assessment and Plan: Follow up with hematology oncology as outpatient. (2) Elevated brain natriuretic peptide (BNP) level Priority: Primary Status: Chronic Assessment and Plan: Patient with elevated BNP of 749 on admission Echocardiogram showed LVEF of 70% with normal left ventricular diastolic function but mild right ventricular hypokinesis and severe pulmonary hypertension with estimated right atrial pressure of 8 mmHG. Estimated RVSP is 65 mmHg. Repeat chest x-ray showing in effusion with some chronic areas of consolidation. Pulmonology was consulted and comanaged with this patient His O2 requirement has improved significantly on lasix He is discharged home with current dose of O2 (3) Elevated troponin Priority: Primary Status: Acute Assessment and Plan: Due to demand ischemia, no CP or Ischemic changes on EKG or ECHO (4) COPD exacerbation Priority: Primary Status: Acute Assessment and Plan: has completed course of ab , continue steroids as a tapering dose and duonebs (5) Acute and chronic respiratory failure with hypoxia Priority: Primary Status: Acute Assessment and Plan: Due to cor-pulmonle, severe Pulm HTN Improved, Continue O2 support at the [facility] (6) Mood disorder Priority: Primary Status: Chronic Assessment and Plan: Continue current meds (7) Hyperlipidemia Priority: Secondary Status: Chronic Assessment and Plan: continue statin Qualifiers: Hyperlipidemia type: unspecified Qualified Code(s): E78.5 - Hyperlipidemia, unspecified (8) Pulmonary hypertension Priority: Primary Status: Acute Assessment and Plan: As in resp failure (9) Goals of care, counseling/discussion Priority: Primary Status: Acute Assessment and Plan: DNRCA-DNI Hospital course: Mr Dumont is a 73 YO M with diagnoses of Stage IIIa poorly differentiated adenocarcinoma undergoing concurrent chemo-radiotherapy s/p PEG placement recently for severe erosive esophagitis. He also suffers from COPD and Chronic Hypoxic Respiratory failure on 2LNC. He also has a PEG tube through which he received feeds. He was admitted and is being managed for acute on chronic hypoxic respiratory failure secondary to pulmonary hydrostatic edema and COPDE. He also had elevated BNP, however ECHO showed normal EF and diastolic function, but severe Pulm HTN. He was managed with steroids, antimicrobials and nebs , as well as high dose diuretics for his Cor-pulmonale. During this hospital stay, palliative care was consulted and patient changed his code status to DNRCCA-DNI. He is severely conditioned and qualifies for rehab at the [facility] in-patient [facility] He was seen and examined at the bedside this mrn, he denies CP, SOB, he only com plained of weakness on ambulation. He is very frail and elderly and probably malnourished His O2 requirement has improved significantly and he is clinically and hemodynamically stable to be transferred to the [facility]. Further details of hospital stay are as described in each diagnosis Discharge discussed with: patient, nurse, social work, case management - Time Spent with Patient Total time spent providing and/or coordinating discharge services: Greater than 30 minutes (50 mins spent on chart review, patient face to face encounter, discussion with the patient, RN and SW/CSM, Documentation and med rec) - Discharge Medications Prescriptions: LORazepam Oral Conc [Ativan Oral Conc] 0.5 mg PO Q8HR PRN 20 Days #1 bottle PRN Reason: Anxiety Home Medications: Albuterol Sulfate [Proventil Hfa] 2 puff IH Q6H PRN 12/01/17 [History] Sucralfate [Carafate] 1 gm PO QIDAC #1 bottle 02/09/18 [Rx] Ondansetron [Zofran ODT] 8 mg SL Q8H PRN #30 tab 02/17/18 [Rx] Calcium Carbonate 650 mg PO DAILY 03/08/18 [History] Cholecalciferol (D-3) [Vitamin D] 1,000 unit PO DAILY 03/08/18 [History] Clopidogrel [Plavix] 75 mg PO DAILY 03/08/18 [History] Promethazine [Phenergan] 25 mg PO Q6HR PRN 03/08/18 [History] Oxycodone HCl [OxyCODONE Oral Soln] 5 - 10 mg PO Q4-6H PRN 8 Days #500 mls 05/10/18 [Rx] Pantoprazole Sodium [Protonix] 40 mg PO DAILY #30 elenapkt. 05/10/18 [Rx] Atorvastatin [Lipitor] 20 mg PO HS 05/24/18 [History] LevETIRAcetam [Keppra] 500 mg PO BID 05/24/18 [History] Mirtazapine [Remeron] 30 mg PO DAILY 05/24/18 [History] Ranitidine Oral Soln [Zantac] 75 mg PO DAILY 05/24/18 [History] Sertraline HCl [Zoloft] 100 mg PO DAILY 05/24/18 [History] Tiotropium [place] [Spiriva Respimat] 2 puff IH DAILY 05/24/18 [History] Furosemide [Lasix] 80 mg PO BIDDIURETIC tablet 06/03/18 [Rx] LORazepam Oral Conc [Ativan Oral Conc] 0.5 mg PO Q8HR PRN 20 Days #1 bottle 06/03/18 [Rx] Levalbuterol Neb [Xopenex Neb] 1.25 mg IH [id number] vial.neb 06/03/18 [Rx] Potassium Chloride Elixir [Potassium Chloride] 20 meq PO BID udc 06/03/18 [Rx] hydrOXYzine pamoate [HydrOXYzine Pamoate] 25 mg PO TID PRN capsule 06/03/18 [Rx] predniSONE [PredniSONE] 40 mg PO DAILY tablet 06/03/18 [Rx] Allergies/Adverse Reactions: Allergy/AdvReac Type Severity Reaction Status Date / Time aspirin [ASA] Allergy Swelling Verified 04/06/18 11:12 of Lip/Tongue/Throat codeine Allergy Swelling Verified 04/06/18 11:12 of Lip/Tongue/Throat Penicillins [PCN] Allergy Hives Verified 04/06/18 11:12 Date of admission: 05/25/18 11:53 [facility] care physician[facility] Consults: 05/24/18 04:40 Consult to Nurse Navigator [CONS] Routine Comment: 05/24/18 18:09 Consult to Pulmonology [CONS] Routine Consulting Provider: Pulm Crit Care & Sleep Cyndi Reason for Consult: acute on chronic respiratory failure Call Completed: Yes 05/25/18 12:19 Consult to Invasive Line Access Team [CONS] Routine Reason for Consult: limited access Line Type: EPIV PICC line indications: Limited vascular access 05/27/18 10:39 Consult to Palliative Care [CONS] Routine Comment: Consulting Provider: Palliative Care Cyndi Reason for Consult: Goals of care given severe respiratory failure Call Completed: No Discharging clinician: Lenin Byrnes Anticipated date of discharge: 06/03/18 - Constitutional Vitals: Temp Pulse Resp BP Pulse Ox 97.9 F 81 20 118/76 95 06/03/18 08:00 06/03/18 08:00 06/03/18 08:00 06/03/18 08:00 06/03/18 08:00 General appearance: Present: cooperative, A&O X 3, pleasant, no acute distress, answers questions appropriately Exam: Gen.: Non-acute distress, alert and oriented 3 ENT: Mucosal membranes moist Respiratory: Patient with decreased airflow with deep expiration, poor respiratory effort. Cardiovascular: Normal S1 and S2 regular rate rhythm no murmurs rubs or gallops Abdomen: Soft, non-tender and non-distended with positive bowel sounds. PEG tube clean surrounding Extremities: No lower extremity edema Skin: no rash, bumps, or bruises. - Patient Status Disposition: Transfer SNF Condition: Fair Functional capacity at discharge: uses cane/walker Overall status at discharge: patient is progressing back to baseline - Discharge Instructions Follow Up With: DENIS,PCP [Primary Care Provider] - 06/04/18 10:00 am - Diet and Activity Activity: resume usual activities as tolerated, wear oxygen at all times Diet: other (tube feeds)
--- NOTE | 2018-06-03 11:17 | Physician Discharge Referral ---
ExtendedCare Referral Info Transfer To: [facility] Provider in Charge: Karey Byrnes Provider in Charge after Transfer: PCP Institutional Level of Care: Skilled - Diagnosis (1) Adenocarcinoma of left lung, stage 3 Priority: Secondary Status: Chronic (2) Elevated brain natriuretic peptide (BNP) level Priority: Primary Status: Chronic (3) Elevated troponin Priority: Primary Status: Acute (4) COPD exacerbation Priority: Primary Status: Acute (5) Acute and chronic respiratory failure with hypoxia Priority: Primary Status: Acute (6) Mood disorder Priority: Secondary Status: Chronic (7) Hyperlipidemia Priority: Secondary Status: Chronic (8) Pulmonary hypertension Priority: Secondary Status: Acute (9) Goals of care, counseling/discussion Priority: Secondary Status: Acute Prognosis: Poor Aware of Diagnosis: Patient, Family Aware of Prognosis: Patient, Family - Transfer Medications Prescriptions: LORazepam Oral Conc [Ativan Oral Conc] 0.5 mg PO Q8HR PRN 20 Days #1 bottle PRN Reason: Anxiety Home Medications: Albuterol Sulfate [Proventil Hfa] 2 puff IH Q6H PRN 12/01/17 [History] Sucralfate [Carafate] 1 gm PO QIDAC #1 bottle 02/09/18 [Rx] Ondansetron [Zofran ODT] 8 mg SL Q8H PRN #30 tab 02/17/18 [Rx] Calcium Carbonate 650 mg PO DAILY 03/08/18 [History] Cholecalciferol (D-3) [Vitamin D] 1,000 unit PO DAILY 03/08/18 [History] Clopidogrel [Plavix] 75 mg PO DAILY 03/08/18 [History] Promethazine [Phenergan] 25 mg PO Q6HR PRN 03/08/18 [History] Oxycodone HCl [OxyCODONE Oral Soln] 5 - 10 mg PO Q4-6H PRN 8 Days #500 mls 05/10/18 [Rx] Pantoprazole Sodium [Protonix] 40 mg PO DAILY #30 05/10/18 [Rx] Atorvastatin [Lipitor] 20 mg PO HS 05/24/18 [History] LevETIRAcetam [Keppra] 500 mg PO BID 05/24/18 [History] Mirtazapine [Remeron] 30 mg PO DAILY 05/24/18 [History] Ranitidine Oral Soln [Zantac] 75 mg PO DAILY 05/24/18 [History] Sertraline HCl [Zoloft] 100 mg PO DAILY 05/24/18 [History] Tiotropium [place] [Spiriva Respimat] 2 puff IH DAILY 05/24/18 [History] Furosemide [Lasix] 80 mg PO BIDDIURETIC tablet 06/03/18 [Rx] LORazepam Oral Conc [Ativan Oral Conc] 0.5 mg PO Q8HR PRN 20 Days #1 bottle 06/03/18 [Rx] Levalbuterol Neb [Xopenex Neb] 1.25 mg IH [id number] vial.neb 06/03/18 [Rx] Potassium Chloride Elixir [Potassium Chloride] 20 meq PO BID udc 06/03/18 [Rx] hydrOXYzine pamoate [HydrOXYzine Pamoate] 25 mg PO TID PRN capsule 06/03/18 [Rx] predniSONE [PredniSONE] 40 mg PO DAILY tablet 06/03/18 [Rx] Allergies/Adverse Reactions: Allergy/AdvReac Type Severity Reaction Status Date / Time aspirin [ASA] Allergy Swelling Verified 04/06/18 11:12 of Lip/Tongue/Throat codeine Allergy Swelling Verified 04/06/18 11:12 of Lip/Tongue/Throat Penicillins [PCN] Allergy Hives Verified 04/06/18 11:12 - Respiratory Orders Oxygen / L per min (2-3 L per min) Smoking Cessation: Smoking cessation has been advised. For more information, call the [employer] Tobacco Quit Line at 2-488-KKCA-NOW. - Advance Directives Code Status: DNR-Arrest/Don't Intubate - Mobility Orders Other - Rehabiliation Orders Rehab Orders: Evaluation for Physical Therapy, Evaluation for Occupational Therapy - Diet Orders Tube Feedings (type/amount/rate): Flush PEG tube w/ 80ml before and after each bolus bolus 1 can jevity 1.5 at 0900, 1200, 1500 via PEG tube CERTIFICATION: I certify that the transfer of the above named patient to an Extended Care Facility is necessary for the continuing treatment of the diagnosis listed. The above information is true and accurate reflection of patient's current condition. Confidential - Redisclosure prohibited without a patient's written consent.
--- NOTE | 2018-06-03 14:54 | Event Note ---
Date of Encounter: 06/03/18 Time of Encounter: 14:50 Patient doing well - has tolerated weaning of oxygen and is currently down to 3LPM. surgical services manager working with [facility] for rehab bed, however, awaiting PT/OT consults. He denies any pain, n/v, states breathing is "good today". Palliative currently not managing any symptoms, code status has been established, and discharge plan in place. Palliative will sign off, please reconsult if needed.
[2018-06-03] MEDS: predniSONE 20 MG TABLET PO SCH (16:36)
[2018-06-03] MEDS: Furosemide 40 MG TABLET PO SCH (16:39)
[2018-06-03] MEDS: hydrOXYzine pamoate 25 MG CAPSULE PO PRN (16:50)
[2018-06-03] MEDS: Mirtazapine 15 MG TABLET PO SCH (21:14)
[2018-06-04 05:10] LABS: BUN/Creatinine Ratio 44 (6-26); Blood Urea Nitrogen 41 mg/dL (8-23); Calcium 9.3 mg/dL (8.6-10.3); Carbon Dioxide 37 mEq/L (23-29); Chloride 88 mEq/L (98-107); Glucose 118 mg/dL (70-105); Osmolality,Calculated 293 (280-300); Potassium 3.2 mEq/L (3.5-5.1); Sodium 136 mEq/L (136-145); eGFR For Non-African Americans > 60 (> 60)
[2018-06-04] MEDS: Levalbuterol Neb 1.25 MG/3 ML IH SCH ×2 (05:14→10:09)
[2018-06-04] MEDS: *HR* Heparin 5,000 UNIT/ML VIAL SQ SCH (06:23)
[2018-06-04 07:20] VITALS: BP 117/78
[2018-06-04] MEDS: Potassium Chloride Elixir 20 MEQ/15 ML UDC PO SCH (07:55)
[2018-06-04] MEDS: predniSONE 20 MG TABLET PO SCH (07:55)
[2018-06-04] MEDS: levETIRAcetam 250 MG TABLET PO SCH (07:55)
[2018-06-04] MEDS: Furosemide 40 MG TABLET PO SCH (07:56)
[2018-06-04] MEDS ORDERED: Potassium Chloride Elixir 20 MEQ/15 ML UDC GTUBE ONE (08:55)
== END 2018-06-04 11:18 | DRG 190 ==
LOC: INTOOBSV 23:27 → 2ANU 23:27 → SUATTDRO 23:27 → 2NNU 05-26 15:14 → 3NENU 06-03 19:56
PROVIDERS: ADMIT Internal Medicine Nephrology; ATTEND Internal Medicine